=== PATIENT | male | born 1965 | race Two or more races ===

== ENCOUNTER 2017-04-19 07:47 | Emergency (ER) | payer MEDICARE, OTHER ==
[~2017-04-19] VITALS: Ht 157.5 cm; Wt 55.3 kg
[~2017-04-19 07:47] MED LIST: 1ST CHOICE LAN1 EACH MC; ABILIFY10 MG ORAL; ABILIFY10 MG PO; ABILIFY20 MG ORAL; ACETAMINOPHEN-1 EAC1 ORAL; ANTIBIOTIC28.4 GM TP; ATRIPLA1 TAB ORAL; ATRIPLA1 TAB PO; AUGMENTIN 875-1 EAC1 ORAL; BACTRIM DS TAB1 EAC1 ORAL; BACTRIM SINGLE S1 EA ORAL; BACTRIM-DS1 EA ORAL; BENTYL10 MG ORAL; BLOOD GLUCOSE1 EAC1 MC; CLARITIN10 MG ORAL; EASY COMFORT I1 EAC1 MC; EASY TOUCH MC; FLONASE16 GM NASAL; GLUCOSE TEST S1 EACH MC; GLUCOSE4 GM PO; GUAIFENESIN DM118 M1 ORAL; IBUPROFEN600 MG ORAL; KEFLEX500 MG ORAL; KLONOPIN0.5 MG ORAL; LANTUS SOL100 UNIT/1 SUBQ; LANTUS5 UNITS *; LEVEMIR FL100 UNIT/1 SUBQ; LEXAPRO10 MG ORAL; LEXAPRO5 MG PO; LIPITOR20 MG ORAL; NAPROSYN500 M1 ORAL; NEOSPORIN OINT30 GM EXT; NEURONTIN100 MG ORAL; NEURONTIN300 MG ORAL; NEURONTIN400 MG PO; NORCO1 EA ORAL; NOVOLOG100 UNIT/3 SUBQ; NOVOLOG100 UNIT/4 SQ; NOVOLOG100 UNITS1 SUBQ; NYSTATIN CREAM15 GM TOPIC; NYSTATIN-TRIAMC15 G1 TOP; RAMIPRIL2.5 MG ORAL; RESTORIL15 MG ORAL; RISPERDAL2 MG ORAL; SALINE NASAL SP45 ML NASAL; TRUVADA 200 MG1 EAC1 ORAL; VIBRAMYCIN100 MG ORAL; [UNRECOGNIZED DRUG - OTHER]; [UNRECOGNIZED DRUG - OTHER] MC; [UNRECOGNIZED DRUG - REMARK]; [UNRECOGNIZED DRUG - SUPPLY]; glucometer strips
[2017-04-19 08:39] VITALS: BP 112/69
--- NOTE | 2017-04-19 08:40 | Emergency Room Report ---
History of Present Illness General Chief Complaint: General Complaint Source: Patient, Medical Record Present Illness HPI 52-year-old male with history of diabetes, noncompliant with medications, HIV- positive, unknown last CD4 count, right lower extremity amputation, chronic right wrist wound for more than one month, presenting with hyperglycemia Patient states that he has only been intermittently taking his Lantus. States that he feels like his sugar is high Mild polydipsia, plus polyuria No fever chills chest pain shortness of breath nausea vomiting Patient currently homeless, has been to the emergency room multiple times Prior to triage to emergency room, patient was noted to be eating in hospital cafeteria Allergies: Coded Allergies: No Known Allergies (Unverified , 11/23/16) Patient History Past Medical History: see triage record Past Surgical History: none Pertinent Family History: none Reviewed Nursing Documentation: PMH: Agreed, PSxH: Agreed Nursing Documentation-PMH Hx Hypertension: Yes Hx COPD: Yes Hx Diabetes: Yes Review of Systems All Other Systems: negative except mentioned in HPI Physical Exam Vital Signs Date Time Temp Pulse Resp B/P (MAP) Pulse Ox O2 Delivery O2 Flow Rate FiO2 04/19/17 07:50 Room Air Sp02 EP Interpretation: reviewed, normal General Appearance: no apparent distress, alert, GCS 15, non-toxic, other - Disheveled middle aged male Head: normocephalic, atraumatic Eyes: bilateral eye normal inspection, bilateral eye PERRL, bilateral eye EOMI ENT: normal ENT inspection, normal pharynx, normal voice, moist mucus membranes Neck: normal inspection, full range of motion, supple Respiratory: normal inspection, lungs clear, normal breath sounds, no respiratory distress, no retraction, no wheezing, speaking full sentences, chest symmetrical Cardiovascular #1: normal inspection, regular rate, rhythm, no edema, normal capillary refill Cardiovascular #2: 2+ radial (R), 2+ radial (L) Gastrointestinal: normal inspection, non tender, soft, non-distended, no guarding Genitourinary: no CVA tenderness Musculoskeletal: back normal, non-tender, other - RLE BKA, R wrist with chronic wound volar aspet, nontender, no erythema no purulent drainage Neurologic: normal inspection, alert, oriented x3, responsive, motor strength/ tone normal, sensory intact, normal gait, speech normal Psychiatric: normal inspection, judgement/insight normal, memory normal Skin: normal inspection, normal color, no rash, warm/dry, well hydrated, normal turgor Medical Decision Making ER Course 52-year-old male, noncompliant with diabetes medications, presenting with hyperglycemia DDX: Hyperglycemia, electrolyte disturbance, dehydration, rule out DKA Noninfectious cause: UTI/pneumonia Chronic right wound, does not appear to have acute infection Plan: Obtain labs, ua, EKG, CXR ER course: Patient has been monitored during ED stay, HD stable got insulin 10 units fluids repeat glucose < 200 Disposition: DCed home instructed to take his DM meds Please note that this Emergency Department Report was dictated using [employer] or damage control specialist technology software, occasionally this can lead to erroneous entry secondary to interpretation by the dictation equipment. Laboratory Tests Test 04/19/17 08:45 White Blood Count 9.1 K/UL (4.8-10.8) Red Blood Count 3.75 M/UL (4.70-6.10) L Hemoglobin 12.3 G/DL (14.2-18.0) L Hematocrit 36.2 % (42.0-52.0) L Mean Corpuscular Volume 96 FL (80-99) Mean Corpuscular Hemoglobin 32.7 PG (27.0-31.0) H Mean Corpuscular Hemoglobin Concent 34.0 G/DL (32.0-36.0) Red Cell Distribution Width 12.3 % (11.6-14.8) Platelet Count 299 K/UL (150-450) Mean Platelet Volume 6.3 FL (6.5-10.1) L Neutrophils (%) (Auto) 76.8 % (45.0-75.0) H Lymphocytes (%) (Auto) 16.5 % (20.0-45.0) L Monocytes (%) (Auto) 3.6 % (1.0-10.0) Eosinophils (%) (Auto) 2.5 % (0.0-3.0) Basophils (%) (Auto) 0.7 % (0.0-2.0) Sodium Level 125 MMOL/L (136-145) L Potassium Level 3.7 MMOL/L (3.5-5.1) Chloride Level 90 MMOL/L (98-107) L Carbon Dioxide Level 28 MMOL/L (21-32) Anion Gap 7 (5-15) Blood Urea Nitrogen 14 mg/dL (7-18) Creatinine 0.9 MG/DL (0.55-1.30) Estimate Glomerular Filtration Rate > 60 mL/min (>60) Glucose Level 567 MG/DL (74-106) *H Calcium Level 9.5 MG/DL (8.5-10.1) Magnesium Level 1.8 MG/DL (1.8-2.4) Total Bilirubin 0.2 MG/DL (0.2-1.0) Aspartate Amino Transferase (AST) 40 U/L (15-37) H Alanine Aminotransferase (ALT) 66 U/L (12-78) Alkaline Phosphatase 169 U/L (46-116) H Total Protein 8.2 G/DL (6.4-8.2) Albumin 3.1 G/DL (3.4-5.0) L Globulin 5.1 g/dL Albumin/Globulin Ratio 0.6 (1.0-2.7) L Acetone Level Negative (NEGATIVE) EKG Diagnostic Results Rate: normal Rhythm: NSR ST Segments: other - LVH, Q waves Avl Rhythm Strip Diag. Results EP Interpretation: yes Rate: 77 Rhythm: NSR, no PVC's, no ectopy Last Vital Signs Date Time Temp Pulse Resp B/P (MAP) Pulse Ox O2 Delivery O2 Flow Rate FiO2 04/19/17 07:50 Room Air Disposition: HOME, SELF-CARE Condition: Improved Referrals: NON PHYSICIAN (PCP) Tosha Erazo M.D. Apr 19, 2017 08:40
[2017-04-19 08:59] LABS: BASOPHILS % (AUTO) 0.7 % (0.0-2.0); EOSINOPHILS % (AUTO) 2.5 % (0.0-3.0); LYMPHOCYTES % (AUTO) 16.5 % (20.0-45.0); MEAN CORPUSCULAR HEMOGLOBIN 32.7 PG (27.0-31.0); MEAN CORPUSCULAR VOLUME 96 FL (80-99); MEAN PLATELET VOLUME 6.3 FL (6.5-10.1); MONOCYTES % (AUTO) 3.6 % (1.0-10.0); NEUTROPHILS % (AUTO) 76.8 % (45.0-75.0); PLATELET COUNT 299 K/UL (150-450); RED BLOOD COUNT 3.75 M/UL (4.70-6.10); RED CELL DISTRIBUTION WIDTH 12.3 % (11.6-14.8); WHITE BLOOD COUNT 9.1 K/UL (4.8-10.8)
[2017-04-19 09:12] LABS: ALANINE AMINOTRANSFERASE 66 U/L (12-78); ALBUMIN/GLOBULIN RATIO 0.6 (1.0-2.7); ANION GAP 7 (5-15); ASPARTATE AMINO TRANSFERASE 40 U/L (15-37); CALCIUM 9.5 MG/DL (8.5-10.1); CARBON DIOXIDE 28 MMOL/L (21-32); CHLORIDE 90 MMOL/L (98-107); CREATININE 0.9 MG/DL (0.55-1.30); GLOMERULAR FILTRATION RATE > 60 mL/min (>60); MAGNESIUM 1.8 MG/DL (1.8-2.4); POTASSIUM 3.7 MMOL/L (3.5-5.1); SODIUM 125 MMOL/L (136-145); TOTAL PROTEIN 8.2 G/DL (6.4-8.2)
[2017-04-19] MEDS ORDERED: IBUPROFEN600 MG ORAL (09:26)
[2017-04-19] MEDS ORDERED: TRAMADOL HCL50 MG ORAL (09:27)
[2017-04-19] MEDS ORDERED: LANTUS SOL100 UNIT/1 SUBQ (09:29)
[2017-04-19] MEDS ORDERED: HUMALOG100 UNIT/4 SUBQ (09:29)
[2017-04-19 10:59] VITALS: BP 147/76
[2017-04-19 11:05] VITALS: BP 147/76
--- NOTE | 2017-04-19 12:03 | Diagnostic Imaging Report ---
Indication: PAIN Technique: One view of the chest Comparison: 03/22/2017 Findings: Lungs and pleural spaces remain clear. The heart size is normal. Bilateral basilar nipple shadows are again demonstrated Impression: No acute process
--- NOTE | 2017-05-02 14:01 | Cardiology Report ---
APPROVED REPORT EKG Measurement Heart [id number] Normal sinus rhythm Left anterior fascicular block Minimal voltage criteria for LVH, may be normal variant Septal infarct, age undetermined Abnormal ECG
== END 2017-04-19 11:25 | disposition home or self-care (01) ==
LOC: EDBD → MERGE 08:26 → UNMERGE 08:26 → EMR 08:26
DX: E11.65 Type 2 diabetes mellitus with hyperglycemia (principal); Z91.14 Patient's other noncompliance with medication regimen; Z59.0 Homelessness; I10 Essential (primary) hypertension; J44.9 Chronic obstructive pulmonary disease, unspecified; Z89.9 Acquired absence of limb, unspecified
CPT/HCPCS: 36415; 71010; 80053; 82009; 82962; 83735; 85025; 93005; 96361; 96374; 99284; J1815; 96360

== ENCOUNTER 2017-05-05 00:10 | Emergency (ER) | payer MEDICARE, OTHER ==
[~2017-05-05] VITALS: Ht 157.5 cm; Wt 41.7 kg
[~2017-05-05 00:10] MED LIST changes: +HUMALOG100 UNIT/4 SUBQ; +TRAMADOL HCL50 MG ORAL
[2017-05-05 00:59] LABS: EOSINOPHILS % (AUTO) 2.3 % (0.0-3.0); LYMPHOCYTES % (AUTO) 17.2 % (20.0-45.0); MEAN CORPUSCULAR HEMOGLOBIN 32.8 PG (27.0-31.0); MEAN CORPUSCULAR HGB CONC 34.1 G/DL (32.0-36.0); MEAN CORPUSCULAR VOLUME 96 FL (80-99); MEAN PLATELET VOLUME 6.8 FL (6.5-10.1); MONOCYTES % (AUTO) 8.5 % (1.0-10.0); PLATELET COUNT 315 K/UL (150-450); RED BLOOD COUNT 3.24 M/UL (4.70-6.10); RED CELL DISTRIBUTION WIDTH 13.4 % (11.6-14.8)
[2017-05-05 01:25] LABS: ANION GAP 7 mmol/L (5-15); CALCIUM 8.9 MG/DL (8.5-10.1); CARBON DIOXIDE 29 MMOL/L (21-32); CHLORIDE 95 MMOL/L (98-107); CREATININE 1.2 MG/DL (0.55-1.30); GLOMERULAR FILTRATION RATE > 60 mL/min (>60); POTASSIUM 4.9 MMOL/L (3.5-5.1); SODIUM 131 MMOL/L (136-145)
[2017-05-05 01:41] VITALS: BP 113/59
[2017-05-05 03:40] VITALS: BP 113/59
--- NOTE | 2017-05-05 03:41 | Emergency Room Report ---
History of Present Illness General Chief Complaint: General Complaint Source: Patient, Medical Record Present Illness HPI This is a 52-year-old male with a history of insulin-dependent diabetes. He's been here multiple times in the past. He presents with chief complaint of high blood sugar. No wheeze doing well if he is in a [facility] or boarding care where he gets his medication. He signed out yesterday and hasn't had any insulin for almost 24 hours. He presents with elevated blood sugar. No fever or chills. No nausea no vomiting. He does have a wound infection to the this his left foot. No fever chills but no nausea no vomiting. Denies any other complaint. Allergies: Coded Allergies: No Known Allergies (Unverified , 11/23/16) Patient History Past Medical History: see triage record, old chart reviewed, DM Past Surgical History: other Pertinent Family History: none Social History: Denies: smoking Immunizations: other Reviewed Nursing Documentation: PMH: Agreed, PSxH: Agreed Nursing Documentation-PMH Hx Hypertension: Yes Hx COPD: Yes Hx Diabetes: Yes Review of Systems Eye: Denies: eye pain, blurred vision ENT: Denies: ear pain, nose congestion, throat swelling Respiratory: Denies: cough, shortness of breath Cardiovascular: Denies: chest pain, palpitations Gastrointestinal: Denies: abdominal pain, diarrhea, nausea, vomiting Musculoskeletal: Denies: back pain, joint pain Skin: Denies: rash Neurological: Denies: headache, numbness Endocrine: Denies: increased thirst, increased urine Hematologic/Lymphatic: Denies: easy bruising All Other Systems: negative except mentioned in HPI Physical Exam Vital Signs Date Time Temp Pulse Resp B/P (MAP) Pulse Ox O2 Delivery O2 Flow Rate FiO2 05/05/17 00:19 99.0 106 20 90/54 98 Room Air vitals with hypotension Sp02 EP Interpretation: reviewed, normal General Appearance: no apparent distress, alert, cachetic, Chronically Ill Head: normocephalic, atraumatic Eyes: bilateral eye PERRL, bilateral eye EOMI ENT: hearing grossly normal, normal pharynx Neck: full range of motion, supple, no meningismus Respiratory: chest non-tender, lungs clear, normal breath sounds Cardiovascular #1: regular rate, rhythm, no murmur Gastrointestinal: normal bowel sounds, non tender, no mass, no organomegaly, no bruit, non-distended Musculoskeletal: back normal, normal range of motion, other - Right BKA. Left foot: He has a crack in the callous of the sole of the foot. no redness or drainage. Psychiatric: mood/affect normal Skin: warm/dry Medical Decision Making Diagnostic Impression: Primary Impression: Hyperglycemia due to type 1 diabetes mellitus Additional Impression: Noncompliance with diabetes treatment ER Course Patient presents with uncontrolled diabetes. He is noncompliance with medication. He does not want help. He slept for several hours here and now said he wanted to leave. He doesn't want any more intervention. He is high risk for further deterioration. I know this patient for few years now. He's slowly getting worse especially since he is not compliant with his medication. He has lost a lot of weight and already had one BKA. I worried that his left foot would become infected. He refuse insulin prescription. He is competent to leave AGAINST MEDICAL ADVICE. There is no intoxication or drug abuse. Lab Results Impression labs with elevated glucose Last Vital Signs Date Time Temp Pulse Resp B/P (MAP) Pulse Ox O2 Delivery O2 Flow Rate FiO2 05/05/17 01:41 99.0 91 20 113/59 98 Room Air Status: improved Disposition: AGAINST MEDICAL ADVICE Condition: Stable Referrals: NOT CHOSEN STEPHIE/,REFERRING (PCP) CASI MARK M.D. May 05, 2017 03:40
== END 2017-05-05 03:40 | disposition left against medical advice (07) ==
LOC: EDBD → EMR 00:49 → MERGE 00:49 → UNMERGE 00:49 → EMR 03:40
DX: E10.65 Type 1 diabetes mellitus with hyperglycemia (principal); Z79.4 Long term (current) use of insulin; Z91.14 Patient's other noncompliance with medication regimen; Z89.511 Acquired absence of right leg below knee; L84 Corns and callosities; I10 Essential (primary) hypertension; J44.9 Chronic obstructive pulmonary disease, unspecified; Z53.21 Procedure and treatment not carried out due to patient leaving prior to being seen by health care provider
CPT/HCPCS: 36415; 80048; 85025; 96361; 96374; 96376; 99284; J1815

== ENCOUNTER 2017-05-24 15:22 | Inpatient (IN) | payer MEDICARE, OTHER ==
[~2017-05-24] VITALS: Ht 160 cm; Wt 49.9 kg
[2017-05-24 15:39] VITALS: BP 91/53
--- NOTE | 2017-05-24 16:32 | Emergency Room Report ---
History of Present Illness General Chief Complaint: Upper Extremity Injury Present Illness HPI 52 YO Male presents to the ED C/O 11/17 in severity progressive pain in the left elbow x 1 week. pt. reports fall from wheelchair 1 week ago with progressive worsening of his symptoms. pt. has hx of DM 2 and takes insulin. Pt. has hx of non-compliance. Pt. states pain with ROM. denies hitting his head or LOC, N/V, abdominal pain, fevers, chills, bleeding. (Mary Carpenter P.A.) Allergies: Uncoded Allergies: POLLEN (Allergy, Unknown, 07/23/16) Patient History Past Medical History: see triage record, DM Past Surgical History: none Pertinent Family History: none Immunizations: UTD Reviewed Nursing Documentation: PMH: Agreed, PSxH: Agreed (Mary Carpenter P.AJamey) Nursing Documentation-PMH Hx Hypertension: Yes Hx COPD: Yes Hx Diabetes: Yes (Mary Carpenter P.A.) Review of Systems All Other Systems: negative except mentioned in HPI (Mary Carpenter P.A.) Physical Exam Vital Signs Date Time Temp Pulse Resp B/P (MAP) Pulse Ox O2 Delivery O2 Flow Rate FiO2 05/24/17 15:28 98.4 90 20 91/53 99 Room Air Sp02 EP Interpretation: reviewed, normal General Appearance: no apparent distress, alert, GCS 15, non-toxic, thin, Chronically Ill Head: normocephalic, atraumatic Eyes: bilateral eye normal inspection ENT: hearing grossly normal, normal voice Neck: full range of motion, supple/symm/no masses Respiratory: chest non-tender, lungs clear, normal breath sounds, speaking full sentences Cardiovascular #1: regular rate, rhythm, normal capillary refill Gastrointestinal: normal bowel sounds, non tender, soft, no guarding, no rebound Rectal: deferred Musculoskeletal: back normal, normal range of motion, other - right BKA, tender - some ttp and swelling to the lateral left elbow. FROM. pt is NVI Neurologic: alert, oriented x3, responsive, motor strength/tone normal, sensory intact, speech normal Skin: no rash, warm/dry, well hydrated, abrasions - scabbed abrasion to the left posterior/medial elbow with surrounding erythema (Mary Carpenter P.AJamey) Medical Decision Making PA Attestation Dr. Erazo is my supervising Physician whom patient management has been discussed with. (Mary Carpenter) Diagnostic Impression: Primary Impression: Cellulitis of left elbow Additional Impressions: Hyperglycemia DM2, uncontrolled ER Course 52 YO Male presents to the ED C/O 11/17 in severity progressive pain in the left elbow x 1 week. pt. reports fall from wheelchair 1 week ago with progressive worsening of his symptoms. pt. has hx of DM 2 and takes insulin. Pt. has hx of non-compliance. Pt. states pain with ROM. denies hitting his head or LOC, N/V, abdominal pain, fevers, chills, bleeding. Ddx considered but are not limited to Fracture, dislocation, contusion, Sprain/ Strain/Spasm, cellulitis, Septic Joint just to name a few. Vital signs: are WNL, pt. is afebrile H&PE are most consistent with musculoskeletal injury will perform imaging to r/ o fractures/dislocations possible infection. ORDERS: - X-ray Elbow -suspicious for osteomyelitis. -CBC: mild leukocytosis at 11.1 -CMP: critically elevated Glucose of 683, hyponatremia and hypochloremia, normal potassium however on the lower end. CO2 of 27 - not acidotic -EK bpm with NSR, q waves in leads 1, AVL, and V2, with some right concave T wave elevation that is less than 1mm in leads V1 and V2. --Per Dr. Erazo, interpretation scribed by RADHA Carpenter - ESR- elevated : 6103, CRP elevated: 9.5 - Troponin : WNL 0.00 -Lactic Acid : WNL -Acetone: negative ED INTERVENTIONS: -Tdap vaccination administered. - 1 gram Vancomycin IV - KCL PO - 2 liters NS Bolus. (after fluids AccuStick was still critically high, so insulin was given) -Insulin 10 units IV. DISPOSITION: at this time pt. will be admitted to Dr. Gutierrez / Dr. Almonte for Cellulitis, hyperglycemia. Dr. Dr. Gutierrez / Dr. Almonte agreed to admit the pt. and to continue pt. care management. Labs Test 05/24/17 17:21 05/24/17 18:40 White Blood Count 11.1 K/UL (4.8-10.8) Red Blood Count 3.43 M/UL (4.70-6.10) Hemoglobin 10.4 G/DL (14.2-18.0) Hematocrit 32.5 % (42.0-52.0) Mean Corpuscular Volume 95 FL (80-99) Mean Corpuscular Hemoglobin 30.4 PG (27.0-31.0) Mean Corpuscular Hemoglobin Concent 32.1 G/DL (32.0-36.0) Red Cell Distribution Width 12.3 % (11.6-14.8) Platelet Count 339 K/UL (150-450) Mean Platelet Volume 6.4 FL (6.5-10.1) Neutrophils (%) (Auto) 78.4 % (45.0-75.0) Lymphocytes (%) (Auto) 13.2 % (20.0-45.0) Monocytes (%) (Auto) 7.1 % (1.0-10.0) Eosinophils (%) (Auto) 0.7 % (0.0-3.0) Basophils (%) (Auto) 0.7 % (0.0-2.0) Erythrocyte Sedimentation Rate 103 MM/HR (0-20) Sodium Level 126 MMOL/L (136-145) Potassium Level 3.8 MMOL/L (3.5-5.1) Chloride Level 91 MMOL/L (98-107) Carbon Dioxide Level 27 MMOL/L (21-32) Anion Gap 8 mmol/L (5-15) Blood Urea Nitrogen 17 mg/dL (7-18) Creatinine 1.2 MG/DL (0.55-1.30) Estimat Glomerular Filtration Rate > 60 mL/min (>60) Glucose Level 683 MG/DL (74-106) Lactic Acid Level 2.00 mmol/L (0.66-2.22) Calcium Level 9.2 MG/DL (8.5-10.1) Magnesium Level 2.0 MG/DL (1.5-2.4) Total Bilirubin 0.3 MG/DL (0.2-1.0) Aspartate Amino Transf (AST/SGOT) 18 U/L (15-37) Alanine Aminotransferase (ALT/SGPT) 21 U/L (12-78) Alkaline Phosphatase 138 U/L (46-116) Total Creatine Kinase 185 U/L (26-308) Creatine Kinase MB 8.8 NG/ML (0.0-3.6) Creatine Kinase MB Relative Index 4.7 Troponin I 0.000 ng/mL (0.000-0.056) C-Reactive Protein, Quantitative 9.5 mg/dL (0.00-0.90) Total Protein 8.3 G/DL (6.4-8.2) Albumin 2.8 G/DL (3.4-5.0) Globulin 5.5 g/dL Albumin/Globulin Ratio 0.5 (1.0-2.7) Acetone Level Negative (NEGATIVE) Urine Color Pale yellow Urine Appearance Clear Urine pH 7 (4.5-8.0) Urine Specific [place] 1.005 (1.005-1.035) Urine Protein 2+ (NEGATIVE) Urine Glucose (UA) 4+ (NEGATIVE) Urine Ketones Negative (NEGATIVE) Urine Occult Blood 1+ (NEGATIVE) Urine Nitrite Negative (NEGATIVE) Urine Bilirubin Negative (NEGATIVE) Urine Urobilinogen Normal MG/DL (0.0-1.0) Urine Leukocyte Esterase Negative (NEGATIVE) Urine RBC 0-2 /HPF (0 - 0) Urine WBC 0-2 /HPF (0 - 0) Urine Squamous Epithelial Cells None /LPF (NONE/OCC) Urine Bacteria Few /HPF (NONE) (Mary Carpenter P.A.) ER Course I have reviewed the PA's interpretation of Xray results and agree with findings. (Tosha Erazo M.D.) EKG Diagnostic Results EKG Time: 17:26 EP Interpretation: Dr. Erazo Rate: normal Rhythm: NSR ST Segments: no acute changes Other Impression Q- waves in leads 1, AVL, and V2, with some right concave T wave elevation that is less than 1mm in leads V1 and V2. ASA given to the pt in ED: No PA Scribe Text Dr. Erazo's interpretation has been scribed by RADHA Carpenter. (Mary Carpenter P.AJamey) Chest X-Ray Diagnostic Results Chest X-Ray Diagnostic Results : Chest X-Ray Ordered: Yes # of Views/Limited/Complete: 1 View Indication: Other - admission for cellulitis/ osteomyelitis EP Interpretation: Yes PA Xray: Interpretation reviewed, by supervising MD, and agrees with findings. Interpretation: no consolidation, no effusion, no pneumothorax, no acute cardiopulmonary disease Impression: No acute disease Electronically Signed by: Mary Carpenter PA-C (Mary Carpenter P.AJamey) Other X-Ray Diagnostic Results Other X-Ray Diagnostic Results : X-Ray ordered: Left Elbow # of Views/Limited Vs Complete: 3 View Indication: Pain EP Interpretation: Yes PA Xray: Interpretation reviewed, by supervising MD, and agrees with findings. Interpretation: no dislocation, no fractures Impression: Other - evidence of bony erosions of the proximal olecranon with effusion - suspicious for osteomyelitis Electronically Signed by: Mary Carpenter PA-C (Mary Carpenter P.AJamey) Last Vital Signs Date Time Temp Pulse Resp B/P (MAP) Pulse Ox O2 Delivery O2 Flow Rate FiO2 05/24/17 15:39 98.4 72 20 91/53 99 Room Air (Mary Carpenter P.AJamey) Disposition: ADMITTED INPATIENT Condition: Serious Referrals: NOT CHOSEN IPA/,REFERRING (PCP) Mary Carpenter May 24, 2017 16:32 Tosha Erazo M.D. May 29, 2017 07:23
[2017-05-24] MEDS ORDERED: Vancomycin 1 GM in NS 275 ML IV ONE (17:00)
[2017-05-24] MEDS ORDERED: Vancomycin 1gm inj IVPB ONE (17:07)
[2017-05-24 17:53] LABS: BASOPHILS % (AUTO) 0.7 % (0.0-2.0); EOSINOPHILS % (AUTO) 0.7 % (0.0-3.0); LYMPHOCYTES % (AUTO) 13.2 % (20.0-45.0); MEAN CORPUSCULAR HEMOGLOBIN 30.4 PG (27.0-31.0); MEAN CORPUSCULAR HGB CONC 32.1 G/DL (32.0-36.0); MEAN CORPUSCULAR VOLUME 95 FL (80-99); MEAN PLATELET VOLUME 6.4 FL (6.5-10.1); MONOCYTES % (AUTO) 7.1 % (1.0-10.0); NEUTROPHILS % (AUTO) 78.4 % (45.0-75.0); PLATELET COUNT 339 K/UL (150-450); RED BLOOD COUNT 3.43 M/UL (4.70-6.10); RED CELL DISTRIBUTION WIDTH 12.3 % (11.6-14.8); WHITE BLOOD COUNT 11.1 K/UL (4.8-10.8)
[2017-05-24 18:08] LABS: ALANINE AMINOTRANSFERASE 21 U/L (12-78); ALBUMIN/GLOBULIN RATIO 0.5 (1.0-2.7); ANION GAP 8 mmol/L (5-15); ASPARTATE AMINO TRANSFERASE 18 U/L (15-37); CALCIUM 9.2 MG/DL (8.5-10.1); CARBON DIOXIDE 27 MMOL/L (21-32); CHLORIDE 91 MMOL/L (98-107); CKMB 8.8 NG/ML (0.0-3.6); CREATININE 1.2 MG/DL (0.55-1.30); GLOMERULAR FILTRATION RATE > 60 mL/min (>60); POTASSIUM 3.8 MMOL/L (3.5-5.1); SODIUM 126 MMOL/L (136-145); TOTAL PROTEIN 8.3 G/DL (6.4-8.2)
[2017-05-24 18:16] LABS: REFLEX LACTIC ACID YES OR NO YES
[2017-05-24] MEDS ORDERED: Mylanta II UD 30ml ORAL PRN (18:30)
--- NOTE | 2017-05-24 18:37 | History and Physical ---
History of Present Illness General Date patient seen: May 24, 2017 Time patient seen: 18:37 Reason for Hospitalization: Upper Extremity Injury Present Illness HPI 52yo male with pmh of DM2, s/p R BKA, bipolar d/o, depression, HIV (on HAART) who presents with L elbow pain/swelling/redness. Pt is poor historian. He states he fell from wheelchair abt 1-2 weeks ago and landed on his L elbow. He has had worsening pain/swelling/redness since. Denies head trauma or LOC. Pt states he is homeless. He has been noncompliant w/ some meds as he has not been able to get refills. States he has an HIV doctor that he sees. He also c/o subjective fevers/chills. Denies n/v, d/c, chest pain, SOB. Pt gets around in wheelchair. Of note, pt was here in Feb 2017 for similar complaints after a fall. He was treated w/ IV antibiotics and underwent drainage of possible abscess. There was concern for septic joint at the time but he decided to leave AMA. In ED, x-ray L elbow showed evidence of destructive process involving the anterior olecranon, possible infectious or neoplastic, as well as joint effusion. Pt given IVFs, vanco IV. Also given insulin regular 10U IV given BG 600s. Serum acetone neg. No AG acidosis on BMP. Allergies: Coded Allergies: No Known Allergies (Unverified , 11/23/16) Medication History Scheduled Amoxicillin/Potassium Clav 875-125* (Augmentin 875-125 Tablet*), 1 TAB ORAL TWICE A DAY Aripiprazole* (Abilify*), 10 MG ORAL DAILY, (Reported) Bacitracin Zinc (Antibiotic), 28.4 GM TP TID Emtricitabine/Tenofovir 200-300MG* (Truvada 200-300MG*), 1 TAB ORAL DAILY, ( Reported) Escitalopram Oxalate* (Lexapro*), Unknown Dose ORAL DAILY, (Reported) Gabapentin* (Neurontin*), 100 MG ORAL THREE TIMES A DAY, (Reported) Insulin Glargine (Lantus), Unknown Dose SUBQ BEDTIME, (Reported) Insulin Glargine (Lantus), 22 SUBQ BEDTIME, (Reported) Insulin Lispro (Humalog), 12 SUBQ TID, (Reported) Scheduled PRN Ibuprofen* (Motrin*), 600 MG ORAL Q6H PRN for For Pain, (Reported) Ibuprofen* (Motrin*), 600 MG ORAL Q8H PRN for For Pain, (Reported) Tramadol Hcl* (Ultram*), 50 MG ORAL Q12HR PRN for For Pain, (Reported) Miscellaneous Medications Insulin Aspart (Novolog), Unknown Dose SQ, (Reported) ["Antiviral"], Unknown Dose, (Reported) Patient History History Provided By: Patient, Medical Record Healthcare decision maker Resuscitation status Advanced Directive on File Past Medical/Surgical History Past Medical/Surgical History: (1) DM2, uncontrolled (2) Bipolar disorder with depression (3) HIV (human immunodeficiency virus infection) (4) Tobacco abuse (5) Status post below knee amputation of right lower extremity Family History Family History: Patient reports no known family medical history. Social History Social History: (1) Homelessness (2) Tobacco abuse Review of Systems ROS Narrative CONSTITUTIONAL: No weight loss, weakness or fatigue. +Fever/chills HEENT: Eyes: No visual loss, blurred vision, double vision or yellow sclerae. Ears, Nose, Throat: No hearing loss, sneezing, congestion, runny nose or sore throat. SKIN: No rash or itching. CARDIOVASCULAR: No chest pain, chest pressure or chest discomfort. No palpitations or edema. RESPIRATORY: No shortness of breath, cough or sputum. GASTROINTESTINAL: No anorexia, nausea, vomiting or diarrhea. No abdominal pain or blood. NEUROLOGICAL: No headache, dizziness, syncope, paralysis, ataxia, numbness or tingling in the extremities. No change in bowel or bladder control. MUSCULOSKELETAL: No muscle, back pain, + L elbow pain. HEMATOLOGIC: No anemia, bleeding or bruising. LYMPHATICS: No enlarged nodes. No history of splenectomy. PSYCHIATRIC: No history of depression or anxiety. ENDOCRINOLOGIC: No reports of sweating, cold or heat intolerance. No polyuria or polydipsia. ALLERGIES: No history of asthma, hives, eczema or rhinitis. Physical Exam Physical Exam Narrative General: alert, cooperative, no distress, appears stated age Head: normocephalic, without obvious abnormality, atraumatic Eyes: conjunctivae/corneas clear. PERRL, EOM's intact Throat: lips, mucosa, and tongue normal. MMM Neck: supple, symmetrical, trachea midline, and no JVD Lungs: clear to auscultation bilaterally Heart: regular rate and rhythm, S1, S2 normal, no murmur, click, rub or gallop Abdomen: soft, non-tender, non-distended, bowel sounds normal; no masses or organomegaly Extremities: +R BKA stump c/d/i. L elbow TTP w/ edema/erythema Pulses: 2+ and symmetric Skin: skin color, texture, turgor normal; no rashes or lesions Neurologic: grossly normal, no focal deficits Last 24 Hour Vital Signs Date Time Temp Pulse Resp B/P (MAP) Pulse Ox O2 Delivery O2 Flow Rate FiO2 05/24/17 15:39 98.4 72 20 91/53 99 Room Air 05/24/17 15:28 98.4 90 20 91/53 99 Room Air Laboratory Tests Test 05/24/17 17:21 White Blood Count 11.1 K/UL (4.8-10.8) H Red Blood Count 3.43 M/UL (4.70-6.10) L Hemoglobin 10.4 G/DL (14.2-18.0) L Hematocrit 32.5 % (42.0-52.0) L Mean Corpuscular Volume 95 FL (80-99) Mean Corpuscular Hemoglobin 30.4 PG (27.0-31.0) Mean Corpuscular Hemoglobin Concent 32.1 G/DL (32.0-36.0) Red Cell Distribution Width 12.3 % (11.6-14.8) Platelet Count 339 K/UL (150-450) Mean Platelet Volume 6.4 FL (6.5-10.1) L Neutrophils (%) (Auto) 78.4 % (45.0-75.0) H Lymphocytes (%) (Auto) 13.2 % (20.0-45.0) L Monocytes (%) (Auto) 7.1 % (1.0-10.0) Eosinophils (%) (Auto) 0.7 % (0.0-3.0) Basophils (%) (Auto) 0.7 % (0.0-2.0) Erythrocyte Sedimentation Rate Pending Sodium Level 126 MMOL/L (136-145) L Potassium Level 3.8 MMOL/L (3.5-5.1) Chloride Level 91 MMOL/L (98-107) L Carbon Dioxide Level 27 MMOL/L (21-32) Anion Gap 8 mmol/L (5-15) Blood Urea Nitrogen 17 mg/dL (7-18) Creatinine 1.2 MG/DL (0.55-1.30) Estimat Glomerular Filtration Rate > 60 mL/min (>60) Glucose Level 683 MG/DL (74-106) *H Lactic Acid Level 2.00 mmol/L (0.66-2.22) Calcium Level 9.2 MG/DL (8.5-10.1) Magnesium Level 2.0 MG/DL (1.5-2.4) Total Bilirubin 0.3 MG/DL (0.2-1.0) Aspartate Amino Transf (AST/SGOT) 18 U/L (15-37) Alanine Aminotransferase (ALT/SGPT) 21 U/L (12-78) Alkaline Phosphatase 138 U/L (46-116) H Total Creatine Kinase 185 U/L (26-308) Creatine Kinase MB 8.8 NG/ML (0.0-3.6) H Creatine Kinase MB Relative Index 4.7 Troponin I 0.000 ng/mL (0.000-0.056) C-Reactive Protein, Quantitative 9.5 mg/dL (0.00-0.90) H Total Protein 8.3 G/DL (6.4-8.2) H Albumin 2.8 G/DL (3.4-5.0) L Globulin 5.5 g/dL Albumin/Globulin Ratio 0.5 (1.0-2.7) L Acetone Level Negative (NEGATIVE) Height (Feet): 5 Height (Inches): 3.00 Weight (Pounds): 110 Medications Current Medications Medications (Trade) Dose Ordered Sig/Antoni Route PRN Reason Start Time Stop Time Status Last Admin Dose Admin Acetaminophen (Tylenol) 650 mg Q4H PRN ORAL Mild Pain (Pain Scale 1-3) 05/24/17 18:30 06/23/17 18:29 UNV Acetaminophen/ Hydrocodone Bitart ([place] 10/325) 1 ea Q4HR PRN ORAL severe pain 05/24/17 18:45 05/31/17 18:44 UNV Acetaminophen/ Hydrocodone Bitart ([place] 5/325) 1 tab Q4H PRN ORAL mod pain 05/24/17 18:45 05/31/17 18:44 UNV Al Hydroxide/Mg Hydroxide (Mylanta II) 30 ml Q6H PRN ORAL dyspepsia 05/24/17 18:30 06/23/17 18:29 UNV Dextrose (Dextrose 50%) STAT PRN IV Hypoglycemia 05/24/17 18:30 06/23/17 18:29 UNV Diphenhydramine HCl (Benadryl) 25 mg Q6H PRN ORAL Itching/Pruritis 05/24/17 18:30 06/23/17 18:29 UNV Docusate Sodium (Colace) 100 mg EVERY 12 HOURS ORAL 05/24/17 21:00 06/23/17 20:59 UNV Heparin Sodium (Porcine) (Heparin 5000 units/ml) 5,000 units EVERY 12 HOURS SUBQ 05/24/17 21:00 06/23/17 20:59 UNV Ondansetron HCl (Zofran) 4 mg Q6H PRN IVP Nausea & Vomiting 05/24/17 18:30 06/23/17 18:29 UNV Sodium Chloride 1,000 ml @ 75 mls/hr [id number] IVLG 05/24/17 19:30 06/23/17 19:29 UNV Sodium Chloride 1,000 ml @ 999 mls/hr Q1H1M ONCE IV 05/24/17 18:15 05/24/17 19:15 05/24/17 18:27 Vancomycin HCl (Vanco rx to dose) 1 ea DAILY PRN MISC Per rx protocol 05/24/17 18:30 06/23/17 18:29 UNV Assessment/Plan Problem List: (1) L elbow wound Assessment & Plan: Concern for septic joint/bursitis vs osteomyelitis (2) Cellulitis of left elbow ICD Codes: L03.114 - Cellulitis of left upper limb SNOMED: 146345738 (3) Uncontrolled diabetes mellitus ICD Codes: E11.65 - Type 2 diabetes mellitus with hyperglycemia SNOMED: 061943297, 19834669 (4) HIV (human immunodeficiency virus infection) ICD Codes: B20 - Human immunodeficiency virus [HIV] disease SNOMED: 72336267 (5) Bipolar disorder with depression ICD Codes: F31.30 - Bipolar disorder, current episode depressed, mild or moderate severity, unspecified SNOMED: 82163820 (6) Tobacco abuse ICD Codes: Z72.0 - Tobacco use SNOMED: 44829819, 859063856 (7) Hx of right BKA ICD Codes: Z89.511 - Acquired absence of right leg below knee SNOMED: 320237248, 010611704, 421565207 (8) Homelessness ICD Codes: Z59.0 - Homelessness SNOMED: 35702163 Status: stable Assessment/Plan Admit inpt Ortho surgery and ID consulted Empiric vanco for now, consider adding further coverage pending ID input F/u cultures Check MRI L elbow to evaluate for osteomyelitis Consider arthrocentesis of L elbow pending MRI Cont home meds KIRTI SW consult for homelessness Podiatry consult for wound care Pain control, bowel regimen Supportive care DVT Prophylaxis: SCD, HSQ Code Status: Full Hospital Classification Declaration: Based on this initial evaluation, and depending on the patient's clinical course, I anticipate that this patient will require hospitalization for 2-3 days for L elbow infection, concern for osteomyelitis and close respiratory/hemodynamic monitoring. Disposition: Once the patient is stable to leave the hospital, I anticipate the patient will likely be discharged to the following environment: group home vs SNF I spent 72 minutes on this patient's case, and 49 minutes were dedicated to counseling and/or care coordination. Discussed with patient/family, nursing staff, SW/CM, ortho, ID regarding clinical status, treatment course, and disposition planning. Time of note may not reflect time of encounter. Gage Hermosillo M.D. May 24, 2017 18:37
[2017-05-24] MEDS ORDERED: Norco 10mg/325mg tab ORAL PRN (18:45)
[2017-05-24] MEDS ORDERED: Norco 5mg/325mg tab ORAL PRN (18:45)
[2017-05-24 19:00] VITALS: BP 118/62
[2017-05-24 19:02] LABS: APPEARANCE,URINE CLEAR; KETONES,URINE NEGATIVE (NEGATIVE); LEUKOCYTE ESTERASE ,URINE NEGATIVE (NEGATIVE); NITRITE,URINE NEGATIVE (NEGATIVE); PH,URINE 7 (4.5-8.0); PROTEIN,URINE 2+ (NEGATIVE); UROBILINOGEN,URINE NORMAL MG/DL (0.0-1.0)
[2017-05-24 19:22] LABS: BACTERIA,URINE FEW /HPF; RBC,URINE 0-2 /HPF (0 - 0); WBC,URINE 0-2 /HPF (0 - 0)
[2017-05-24] MEDS ORDERED: Tetanus/Diptheria/Pertussis Vaccine 0.5ml Syr IM ONE (20:45)
[2017-05-24 21:00] VITALS: BP 134/66
[2017-05-24 21:35] VITALS: BP 114/73
[2017-05-24] MEDS ORDERED: Levemir Flexpen SUBQ SCH (22:00)
[2017-05-24] MEDS: Heparin 5000 units/ml inj SUBQ SCH (22:49)
[2017-05-24] MEDS: NovoLOG Insulin Flexpen SUBQ SCH (22:50)
[2017-05-24] MEDS: Docusate 100mg cap ORAL SCH (22:51)
[2017-05-25] VITALS: BP 115/57
[2017-05-25 04:00] VITALS: BP 120/59
[2017-05-25] MEDS: Vancomycin 750mg/NS 250ml 250 ML IVPB SCH ×2 (05:19→18:33)
[2017-05-25] MEDS: NovoLOG Insulin Flexpen SUBQ SCH ×4 (06:30→23:36)
[2017-05-25 08:12] LABS: BASOPHILS % (AUTO) 0.3 % (0.0-2.0); EOSINOPHILS % (AUTO) 0.5 % (0.0-3.0); LYMPHOCYTES % (AUTO) 15.9 % (20.0-45.0); MEAN CORPUSCULAR HEMOGLOBIN 31.7 PG (27.0-31.0); MEAN CORPUSCULAR HGB CONC 33.6 G/DL (32.0-36.0); MEAN CORPUSCULAR VOLUME 94 FL (80-99); MEAN PLATELET VOLUME 6.8 FL (6.5-10.1); NEUTROPHILS % (AUTO) 77.3 % (45.0-75.0); PLATELET COUNT 351 K/UL (150-450); RED BLOOD COUNT 3.24 M/UL (4.70-6.10); RED CELL DISTRIBUTION WIDTH 12.5 % (11.6-14.8); WHITE BLOOD COUNT 11.8 K/UL (4.8-10.8)
[2017-05-25 08:18] LABS: ALANINE AMINOTRANSFERASE 23 U/L (12-78); ALBUMIN/GLOBULIN RATIO 0.5 (1.0-2.7); ANION GAP 3 mmol/L (5-15); ASPARTATE AMINO TRANSFERASE 17 U/L (15-37); CALCIUM 8.6 MG/DL (8.5-10.1); CARBON DIOXIDE 29 MMOL/L (21-32); CHLORIDE 105 MMOL/L (98-107); CREATININE 0.8 MG/DL (0.55-1.30); GLOMERULAR FILTRATION RATE > 60 mL/min (>60); MAGNESIUM 1.8 MG/DL (1.8-2.4); POTASSIUM 3.9 MMOL/L (3.5-5.1); SODIUM 137 MMOL/L (136-145); TOTAL PROTEIN 7.3 G/DL (6.4-8.2)
[2017-05-25 08:27] VITALS: BP 135/59
[2017-05-25] MEDS: Docusate 100mg cap ORAL SCH ×2 (09:00→22:14)
[2017-05-25] MEDS ORDERED: ARIPiprazole 10mg tab ORAL SCH (09:00)
--- NOTE | 2017-05-25 09:04 | Diagnostic Imaging Report ---
Indications:Pain, status post fall Technique: 2 views of the left elbow Comparison: None Findings:Are there is joint effusion, manifested by level were of fat pads. No definite acute fracture is demonstrated. However, there is marked erosion of the posterior cortex of the olecranon, with fragmentation and elevation of the posterior cortex. No dislocations Impression:Evidence of destructive process involving the anterior olecranon. This could be infectious or neoplastic, among other possibilities. Positive for joint effusion No definite acute fracture Findings discussed by phone with Dr. Erazo in the emergency room at the time of interpretation
[2017-05-25] MEDS: Heparin 5000 units/ml inj SUBQ SCH ×2 (09:52→22:21)
--- NOTE | 2017-05-25 11:22 | Diagnostic Imaging Report ---
Indication: PAIN Technique: One view of the chest Comparison: 04/19/2017 Findings: Lungs and pleural spaces are clear. Heart size is normal. No significant change Impression: No acute process
[2017-05-25 11:43] VITALS: BP 142/78
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
--- NOTE | 2017-05-25 15:10 | Infectious Diseases Prog Note ---
Assessment/Plan Assessment/Plan Ful consult dictate: A) 1) left elbow infected wound, ? osteo, ? septic arthritis/bursitis 2) hiv 3) allergies - negative P) 1) vancomycin, cefepime 2) check wound culture, labs, MRI left elbow 3) surgery evaluation, ? arthrocentesis 4) d/w Dr. Almonte 5) thank you Subjective Allergies: Coded Allergies: No Known Allergies (Unverified , 11/23/16) Objective Vital Signs Last 24 Hour Vital Signs Date Time Temp Pulse Resp B/P (MAP) Pulse Ox O2 Delivery O2 Flow Rate FiO2 05/25/17 11:43 98.3 85 20 142/78 98 Room Air 05/25/17 08:27 98.2 79 20 135/59 98 Room Air 05/25/17 04:00 96.8 86 20 120/59 96 Room Air 05/25/17 03:52 83 05/25/17 00:01 82 05/25/17 00:00 96.8 54 20 115/57 97 Room Air 05/24/17 21:35 97.9 84 20 114/73 96 Room Air 05/24/17 21:30 97.9 81 19 134/66 99 Room Air 05/24/17 21:00 97.9 81 19 134/66 99 Room Air 05/24/17 19:00 74 16 118/62 98 Room Air 05/24/17 15:39 98.4 72 20 91/53 99 Room Air 05/24/17 15:28 98.4 90 20 91/53 99 Room Air Height (Feet): 5 Height (Inches): 3.00 Weight (Pounds): 110 Laboratory Tests Test 05/24/17 17:21 05/24/17 18:40 05/24/17 20:30 05/25/17 07:30 White Blood Count 11.1 K/UL (4.8-10.8) H 11.8 K/UL (4.8-10.8) H Red Blood Count 3.43 M/UL (4.70-6.10) L 3.24 M/UL (4.70-6.10) L Hemoglobin 10.4 G/DL (14.2-18.0) L 10.3 G/DL (14.2-18.0) L Hematocrit 32.5 % (42.0-52.0) L 30.5 % (42.0-52.0) L Mean Corpuscular Volume 95 FL (80-99) 94 FL (80-99) Mean Corpuscular Hemoglobin 30.4 PG (27.0-31.0) 31.7 PG (27.0-31.0) H Mean Corpuscular Hemoglobin Concent 32.1 G/DL (32.0-36.0) 33.6 G/DL (32.0-36.0) Red Cell Distribution Width 12.3 % (11.6-14.8) 12.5 % (11.6-14.8) Platelet Count 339 K/UL (150-450) 351 K/UL (150-450) Mean Platelet Volume 6.4 FL (6.5-10.1) L 6.8 FL (6.5-10.1) Neutrophils (%) (Auto) 78.4 % (45.0-75.0) H 77.3 % (45.0-75.0) H Lymphocytes (%) (Auto) 13.2 % (20.0-45.0) L 15.9 % (20.0-45.0) L Monocytes (%) (Auto) 7.1 % (1.0-10.0) 6.0 % (1.0-10.0) Eosinophils (%) (Auto) 0.7 % (0.0-3.0) 0.5 % (0.0-3.0) Basophils (%) (Auto) 0.7 % (0.0-2.0) 0.3 % (0.0-2.0) Erythrocyte Sedimentation Rate 103 MM/HR (0-20) H Sodium Level 126 MMOL/L (136-145) L 137 MMOL/L (136-145) # Potassium Level 3.8 MMOL/L (3.5-5.1) 3.9 MMOL/L (3.5-5.1) Chloride Level 91 MMOL/L (98-107) L 105 MMOL/L (98-107) Carbon Dioxide Level 27 MMOL/L (21-32) 29 MMOL/L (21-32) Anion Gap 8 mmol/L (5-15) 3 mmol/L (5-15) L Blood Urea Nitrogen 17 mg/dL (7-18) 10 mg/dL (7-18) Creatinine 1.2 MG/DL (0.55-1.30) 0.8 MG/DL (0.55-1.30) Estimat Glomerular Filtration Rate > 60 mL/min (>60) > 60 mL/min (>60) Glucose Level 683 MG/DL (74-106) *H 60 MG/DL (74-106) #L Lactic Acid Level 2.00 mmol/L (0.66-2.22) 0.60 mmol/L (0.66-2.22) L Calcium Level 9.2 MG/DL (8.5-10.1) 8.6 MG/DL (8.5-10.1) Magnesium Level 2.0 MG/DL (1.5-2.4) 1.8 MG/DL (1.8-2.4) Total Bilirubin 0.3 MG/DL (0.2-1.0) 0.2 MG/DL (0.2-1.0) Aspartate Amino Transf (AST/SGOT) 18 U/L (15-37) 17 U/L (15-37) Alanine Aminotransferase (ALT/SGPT) 21 U/L (12-78) 23 U/L (12-78) Alkaline Phosphatase 138 U/L (46-116) H 112 U/L (46-116) Total Creatine Kinase 185 U/L (26-308) Creatine Kinase MB 8.8 NG/ML (0.0-3.6) H Creatine Kinase MB Relative Index 4.7 Troponin I 0.000 ng/mL (0.000-0.056) C-Reactive Protein, Quantitative 9.5 mg/dL (0.00-0.90) H Total Protein 8.3 G/DL (6.4-8.2) H 7.3 G/DL (6.4-8.2) Albumin 2.8 G/DL (3.4-5.0) L 2.4 G/DL (3.4-5.0) L Globulin 5.5 g/dL 4.9 g/dL Albumin/Globulin Ratio 0.5 (1.0-2.7) L 0.5 (1.0-2.7) L Acetone Level Negative (NEGATIVE) Urine Color Pale yellow Urine Appearance Clear Urine pH 7 (4.5-8.0) Urine Specific [place] 1.005 (1.005-1.035) Urine Protein 2+ (NEGATIVE) H Urine Glucose (UA) 4+ (NEGATIVE) H Urine Ketones Negative (NEGATIVE) Urine Occult Blood 1+ (NEGATIVE) H Urine Nitrite Negative (NEGATIVE) Urine Bilirubin Negative (NEGATIVE) Urine Urobilinogen Normal MG/DL (0.0-1.0) Urine Leukocyte Esterase Negative (NEGATIVE) Urine RBC 0-2 /HPF (0 - 0) H Urine WBC 0-2 /HPF (0 - 0) Urine Squamous Epithelial Cells None /LPF (NONE/OCC) Urine Bacteria Few /HPF (NONE) Current Medications Medications (Trade) Dose Ordered Sig/Antoni Route PRN Reason Start Time Stop Time Status Last Admin Dose Admin Acetaminophen (Tylenol) 650 mg Q4H PRN ORAL Mild Pain (Pain Scale 1-3) 05/24/17 18:30 06/23/17 18:29 Acetaminophen/ Hydrocodone Bitart ([place] 10/325) 1 ea Q4H PRN ORAL severe pain (7-10) 05/24/17 18:45 05/31/17 18:44 Acetaminophen/ Hydrocodone Bitart ([place] 5/325) 1 tab Q4H PRN ORAL MODERATE PAIN (4-6) 05/24/17 18:45 05/31/17 18:44 Al Hydroxide/Mg Hydroxide (Mylanta II) 30 ml Q6H PRN ORAL dyspepsia 05/24/17 18:30 06/23/17 18:29 Aripiprazole (Abilify) 10 mg DAILY ORAL 05/25/17 09:00 06/24/17 08:59 05/25/17 09:00 Dextrose (Dextrose 50%) STAT PRN IV Hypoglycemia 05/24/17 18:45 06/23/17 18:44 Diphenhydramine HCl (Benadryl) 25 mg Q6H PRN ORAL Itching/Pruritis 05/24/17 18:30 06/23/17 18:29 Docusate Sodium (Colace) 100 mg EVERY 12 HOURS ORAL 05/24/17 21:00 06/23/17 20:59 05/24/17 22:51 Emtricitabine/ Tenofovir (Truvada 200/ 300mg) 1 tab DAILY ORAL 05/25/17 09:00 06/24/17 08:59 UNV Escitalopram Oxalate (Lexapro) 10 mg DAILY ORAL 05/25/17 09:00 06/24/17 08:59 05/25/17 09:51 Gabapentin (Neurontin) 100 mg THREE TIMES A DAY ORAL 05/25/17 09:00 06/24/17 08:59 05/25/17 13:40 Heparin Sodium (Porcine) (Heparin 5000 units/ml) 5,000 units EVERY 12 HOURS SUBQ 05/24/17 21:00 06/23/17 20:59 05/25/17 09:52 Insulin Aspart (NovoLOG) BEFORE MEALS AND HS SUBQ 05/24/17 22:00 06/23/17 21:59 05/25/17 11:33 Ondansetron HCl (Zofran) 4 mg Q6H PRN IVP Nausea & Vomiting 05/24/17 18:30 06/23/17 18:29 Sodium Chloride 1,000 ml @ 75 mls/hr [id number] IVLG 05/24/17 21:30 06/23/17 21:29 05/25/17 10:02 Vancomycin HCl (Vanco rx to dose) 1 ea DAILY PRN MISC Per rx protocol 05/24/17 18:30 06/23/17 18:29 Vancomycin/Sodium Chloride 250 ml @ 166.667 mls/hr Q12HR@0600,1800 IVPB 05/25/17 06:00 05/30/17 05:59 05/25/17 05:19 CAROL REBOLLEDO May 25, 2017 15:10
[2017-05-25 15:32] VITALS: BP 119/61
--- NOTE | 2017-05-25 16:27 | Cardiology Report ---
APPROVED REPORT EKG Measurement Heart [id number] [place] [id number] Normal sinus rhythm Possible Left atrial enlargement Incomplete right bundle branch block Left anterior fascicular block Left ventricular hypertrophy Cannot rule out Septal infarct, age undetermined Abnormal ECG
[2017-05-25] MEDS ORDERED: Dolutegravir Sodium 50mg tab ORAL SCH (17:00)
[2017-05-25] MEDS ORDERED: Cefepime HCl 2 GM in D5W 55 ML IVPB SCH (17:00)
[2017-05-25] MEDS ORDERED: Epzicom tab ORAL SCH (17:00)
[2017-05-25 19:58] VITALS: BP 115/56
[2017-05-25] MEDS ORDERED: Norco 10mg/325mg tab ORAL PRN (21:30)
[2017-05-25] MEDS ORDERED: Mylanta II UD 30ml ORAL PRN (21:30)
[2017-05-25] MEDS ORDERED: Norco 5mg/325mg tab ORAL PRN (21:30)
[2017-05-26] VITALS: BP 124/62
--- NOTE | 2017-05-26 02:00 | Consultation ---
DATE OF CONSULTATION: 05/25/2017 CONSULTING PHYSICIAN: Torin Kim M.D. REFERRING PHYSICIAN: Juan Ramon Gutierrez M.D. CHIEF COMPLAINT: Left elbow pain and swelling. HISTORY OF PRESENT ILLNESS: The patient reports that he has had swelling of the left elbow for the last two weeks. He was admitted for left upper extremity cellulitis. Orthopedic consultation has been obtained for further care and recommendation. PAST MEDICAL HISTORY: Reviewed from the intake chart. PAST SURGICAL HISTORY: Reviewed from the intake chart. MEDICATIONS: Reviewed from the intake chart. PHYSICAL EXAMINATION: Examination shows an area of swelling along the left elbow. There is some fluctuance along the olecranon process area with a small punctate lesion. Neurovascular exam normal. Full elbow supination/ pronation without pain. RADIOGRAPHS: Two views of the left elbow revealed what appears to be possible osteomyelitis of the distal aspect of the olecranon. ASSESSMENT: Left elbow osteomyelitis. DISCUSSION: At this point, I would recommend getting an MRI of the left elbow. If there is a bony involvement, most likely he is going to require resection of the bone and retachment of the tendon. In the meantime, he can get appropriate intravenous antibiotics. Pending the MRI results. He will probably require higher level of care and should be placed on transfer list to [facility] for Dr freeman or Dr Herrera. Torin Kim M.D. DR: SHAJI JOB#: [id number] CC: JACEY
[2017-05-26 04:00] VITALS: BP 140/72
[2017-05-26] MEDS: Cefepime HCl 2 GM in D5W 55 ML IVPB SCH ×2 (04:59→17:27)
[2017-05-26] MEDS ORDERED: Vancomycin 750mg/NS 250ml 250 ML IVPB SCH (06:00)
[2017-05-26] MEDS: NovoLOG Insulin Flexpen SUBQ SCH ×3 (06:43→17:18)
[2017-05-26 07:05] LABS: ANION GAP 6 mmol/L (5-15); CARBON DIOXIDE 28 MMOL/L (21-32); CHLORIDE 98 MMOL/L (98-107); CREATININE 0.9 MG/DL (0.55-1.30); GLOMERULAR FILTRATION RATE > 60 mL/min (>60); POTASSIUM 3.7 MMOL/L (3.5-5.1); SODIUM 132 MMOL/L (136-145)
[2017-05-26 07:18] LABS: BASOPHILS % (AUTO) 0.7 % (0.0-2.0); EOSINOPHILS % (AUTO) 1.9 % (0.0-3.0); LYMPHOCYTES % (AUTO) 19.2 % (20.0-45.0); MEAN CORPUSCULAR HEMOGLOBIN 32.4 PG (27.0-31.0); MEAN CORPUSCULAR HGB CONC 33.8 G/DL (32.0-36.0); MEAN CORPUSCULAR VOLUME 96 FL (80-99); MEAN PLATELET VOLUME 6.8 FL (6.5-10.1); MONOCYTES % (AUTO) 6.4 % (1.0-10.0); NEUTROPHILS % (AUTO) 71.8 % (45.0-75.0); PLATELET COUNT 315 K/UL (150-450); RED BLOOD COUNT 3.52 M/UL (4.70-6.10); RED CELL DISTRIBUTION WIDTH 12.9 % (11.6-14.8)
--- NOTE | 2017-05-26 07:26 | General Progress Note ---
Assessment/Plan Problem List: (1) L elbow wound Assessment & Plan: Concern for septic joint/bursitis vs osteomyelitis (2) Cellulitis of left elbow ICD Codes: L03.114 - Cellulitis of left upper limb SNOMED: 191730799 (3) Uncontrolled diabetes mellitus ICD Codes: E11.65 - Type 2 diabetes mellitus with hyperglycemia SNOMED: 674436064, 64271998 (4) HIV (human immunodeficiency virus infection) ICD Codes: B20 - Human immunodeficiency virus [HIV] disease SNOMED: 57223191 (5) Bipolar disorder with depression ICD Codes: F31.30 - Bipolar disorder, current episode depressed, mild or moderate severity, unspecified SNOMED: 89017512 (6) Tobacco abuse ICD Codes: Z72.0 - Tobacco use SNOMED: 70122587, 053481658 (7) Hx of right BKA ICD Codes: Z89.511 - Acquired absence of right leg below knee SNOMED: 306822680, 793788134, 643685119 (8) Homelessness ICD Codes: Z59.0 - Homelessness SNOMED: 71677735 Status: stable Assessment/Plan Ortho surgery and ID consulted Empiric vanco (05/24-) and cefepime (05/25-) Inflammatory markers elevated w/ ESR 103, CRP 9.5 F/u blood cultures--ngtd F/u MRI L elbow to evaluate for osteomyelitis Consider arthrocentesis of L elbow pending MRI Cont home meds KIRTI SW consult for homelessness Podiatry consult for wound care Pain control, bowel regimen Supportive care CM consulted as likely needs SNF placement if long-term IV abx needed DVT Prophylaxis: SCD, HSQ Code Status: Full Hospital Classification Declaration: Based on this initial evaluation, and depending on the patient's clinical course, I anticipate that this patient will require hospitalization for 2-3 days for L elbow infection, concern for osteomyelitis and close respiratory/hemodynamic monitoring. Disposition: Once the patient is stable to leave the hospital, I anticipate the patient will likely be discharged to the following environment: residential vs SNF I spent 43 minutes on this patient's case, and 24 minutes were dedicated to counseling and/or care coordination. Discussed with patient/family, nursing staff, SW/CM, ortho, ID regarding clinical status, treatment course, and disposition planning. Time of note may not reflect time of encounter. Subjective Date patient seen: May 25, 2017 Time patient seen: 12:00 ROS Limited/Unobtainable: No Constitutional: Reports: weakness HEENT: Reports: no symptoms Respiratory: Reports: no symptoms Gastrointestinal/Abdominal: Reports: no symptoms Genitourinary: Reports: no symptoms Neurologic/Psychiatric: Reports: no symptoms Endocrine: Reports: no symptoms Hematologic/Lymphatic: Reports: no symptoms Allergies: Coded Allergies: No Known Allergies (Unverified , 11/23/16) All Systems: reviewed and negative except above Subjective No acute o/n events BG 60s this AM, now improved Cont on IV abx. ID added cefepime Awaiting MRI L elbow Pt states pain controlled. Denies f/c, n/v, d/c, chest pain, SOB Wants to talk to [facility] shelter Objective Last 24 Hour Vital Signs Date Time Temp Pulse Resp B/P (MAP) Pulse Ox O2 Delivery O2 Flow Rate FiO2 05/26/17 04:00 97.5 73 18 140/72 97 Room Air 05/26/17 00:00 97.7 72 20 124/62 100 Room Air 05/25/17 19:58 80 18 115/56 98 Room Air 05/25/17 16:00 85 05/25/17 15:32 98.4 78 20 119/61 97 05/25/17 11:43 98.3 85 20 142/78 98 Room Air 05/25/17 08:27 98.2 79 20 135/59 98 Room Air Laboratory Tests 05/25/17 07:30: White Blood Count 11.8H, Red Blood Count 3.24L, Hemoglobin 10.3L, Hematocrit 30.5L, Mean Corpuscular Volume 94, Mean Corpuscular Hemoglobin 31.7H, Mean Corpuscular Hemoglobin Concent 33.6, Red Cell Distribution Width 12.5, Platelet Count 351, Mean Platelet Volume 6.8, Neutrophils (%) (Auto) 77.3H, Lymphocytes ( %) (Auto) 15.9L, Monocytes (%) (Auto) 6.0, Eosinophils (%) (Auto) 0.5, Basophils (%) (Auto) 0.3, Sodium Level 137#, Potassium Level 3.9, Chloride Level 105, Carbon Dioxide Level 29, Anion Gap 3L, Blood Urea Nitrogen 10, Creatinine 0.8, Estimat Glomerular Filtration Rate > 60, Glucose Level 60#L, Calcium Level 8.6, Magnesium Level 1.8, Total Bilirubin 0.2, Aspartate Amino Transf (AST/SGOT) 17, Alanine Aminotransferase (ALT/SGPT) 23, Alkaline Phosphatase 112, Total Protein 7.3, Albumin 2.4L, Globulin 4.9, Albumin/ Globulin Ratio 0.5L 05/26/17 05:00: Sodium Level 132L, Potassium Level 3.7, Chloride Level 98, Carbon Dioxide Level 28, Anion Gap 6, Blood Urea Nitrogen 12, Creatinine 0.9, Estimat Glomerular Filtration Rate > 60, Glucose Level 386#H, Calcium Level 9.0 05/26/17 05:05: White Blood Count [Pending], Red Blood Count [Pending], Hemoglobin [Pending], Hematocrit [Pending], Mean Corpuscular Volume [Pending], Mean Corpuscular Hemoglobin [Pending], Mean Corpuscular Hemoglobin Concent [Pending], Red Cell Distribution Width [Pending], Platelet Count [Pending], Mean Platelet Volume [ Pending], Neutrophils (%) (Auto) [Pending], Lymphocytes (%) (Auto) [Pending], Monocytes (%) (Auto) [Pending], Eosinophils (%) (Auto) [Pending], Basophils (%) (Auto) [Pending] Height (Feet): 5 Height (Inches): 3.00 Weight (Pounds): 110 Objective General: alert, cooperative, no distress, appears stated age, thin Head: normocephalic, without obvious abnormality, atraumatic Eyes: conjunctivae/corneas clear. PERRL, EOM's intact Throat: lips, mucosa, and tongue normal. MMM Neck: supple, symmetrical, trachea midline, and no JVD Lungs: clear to auscultation bilaterally Heart: regular rate and rhythm, S1, S2 normal, no murmur, click, rub or gallop Abdomen: soft, non-tender, non-distended, bowel sounds normal; no masses or organomegaly Extremities: extremities normal, atraumatic, no cyanosis or edema Pulses: 2+ and symmetric Skin: +R BKA, + L elbow TTP w/ edema/erythema/effusion, ROM limited 2/2 pain Neurologic: grossly normal, no focal deficits Gage Hermosillo M.D. May 26, 2017 07:25
[2017-05-26 08:00] VITALS: BP 111/57
[2017-05-26] MEDS ORDERED: Epzicom tab ORAL SCH (09:00)
[2017-05-26] MEDS ORDERED: ARIPiprazole 10mg tab ORAL SCH (09:00)
[2017-05-26] MEDS ORDERED: Dolutegravir Sodium 50mg tab ORAL SCH (09:00)
[2017-05-26] MEDS ORDERED: Levemir Flexpen SUBQ SCH (09:00)
[2017-05-26] MEDS: Docusate 100mg cap ORAL SCH (09:44)
--- NOTE | 2017-05-26 09:44 | Diagnostic Imaging Report ---
Indication: Elbow pain, abnormal left none on recent radiograph Technique: Axial, coronal, sagittal T1, axial and sagittal STIR, coronal T2 PROPELLER images obtained of the left elbow Comparison: Reference made to plain radiographs dated 05/24/2017 Findings: There is a sizable joint effusion. There is cortical irregularity and cortical loss of the posterior olecranon. Deep to this, there is considerable low T1 signal, less striking increased T2 and STIR signal. This involves nearly the entire olecranon, with erosive changes being most predominant medially. There is a large elbow joint effusion. There is a fluid collection in the soft tissues posterior to the olecranon which extends from the skin surface to the bony cortex, is a bilobed, measures approximately 2 cm AP by 1.8 cm transverse by 3.5 cm in length. High signal is seen within the triceps tendon, especially medially and at the attachment to the olecranon. There is considerable edema of the subcutaneous fat, especially posteriorly but also anteriorly. There is extensive high STIR and T2 signal within the distal triceps musculature, and to lesser extent within the anterior musculature. No marrow signal abnormality is seen within the humerus or the radius. The joint spaces appear to be preserved. Impression: Erosion of the cortex and abnormal signal within the olecranon, consistent with osteomyelitis Large elbow joint effusion. Possibly reactive, but septic arthritis cannot be ruled out 2 x 1.8 x 3.5 cm fluid collection extending from the posterior skin surface to the olecranon, consistent with soft tissue abscess, likely associated soft tissue ulcer High signal within the triceps tendon, most likely represents infection within the triceps tendon. Associated tear not excludable Considerable edema of the subcutaneous fat, circumferential especially posteriorly. Nonspecific but given the above findings likely representing soft tissue cellulitis. Extensive edema of the triceps musculature, less extensive edema of the anterior musculature, suspicious for myositis Findings discussed by phone with Dr. Hermosillo at the time of interpretation
[2017-05-26] MEDS: Heparin 5000 units/ml inj SUBQ SCH (09:55)
[2017-05-26 12:00] VITALS: BP 144/64
--- NOTE | 2017-05-26 15:01 | Consultation ---
Consult Note Assessment/Plan Podiatry Consult Dictated A/ 1) Tinea Pedis 2) DM 3) HIV 4) Right BKA P/ Will order topical antifungal to be applied daily Patient to get shower in AM Thank you Matt England DPM May 26, 2017 15:01
[2017-05-26 16:00] VITALS: BP 143/73
[2017-05-26] MEDS ORDERED: Vancomycin 1gm/D5W 275ml IVPB SCH ×2 (19:30)
--- NOTE | 2017-05-26 21:00 | Consultation ---
DATE OF CONSULTATION: 05/26/2017 REQUESTING PHYSICIAN: Dr. Gage Hermosillo, REASON FOR CONSULTATION: Possible kidney infection (diabetes mellitus and HIV). HISTORY OF PRESENT ILLNESS: The patient is a 52-year-old male who was admitted to [facility] on 05/26/2017 for left elbow cellulitis and hyperglycemia. The patient complaints of pedal itching and fissuring and states that he lost his right leg to infection and is concerned about his left foot. PAST MEDICAL HISTORY: Significant for diabetes mellitus, BKA, bipolar with depression, and HIV. MEDICATIONS: Per SEP. ALLERGIES: Pollen. SOCIAL HISTORY: The patient is homeless. FAMILY HISTORY: Noncontributory. REVIEW OF SYSTEMS: HEENT: The patient denies any headaches, blurred vision, or ringing in the ears. CARDIORESPIRATORY: The patient denies any chest pain or shortness of breath. GENITOURINARY: The patient denies any urgency, frequency, or burning upon urination or hematuria. GASTROINTESTINAL: The patient denies any constipation, diarrhea, or blood in the stool. PHYSICAL EXAMINATION: VITAL SIGNS: Temperature is 97.5 degrees, pulse is 82, respirations 18, blood pressure is 144/64, and saturating 100% on room air. EXTREMITIES: Lower extremity physical exam, left foot palpable pedal pulses noted to the dorsalis pedis and posterior tibial arteries. No edema or cyanosis is noted. There is hair noted on the digits. DERMATOLOGICAL: Skin is dry, flaky with fissuring noted. No signs of acute bacterial infection. No erythema noted. MUSCULOSKELETAL: A 4/5 muscle strength is noted in anterolateral and posterior muscle groups of the left lower extremity. No gross deformity is noted. There is a right BKA noted. NEUROLOGICAL: Protective threshold is diminished. Achilles deep tendon reflexes are 2+ on the left. No spasticity noted. LABORATORY AND DIAGNOSTIC DATA: No lower extremity imaging is noted. Laboratory data, white blood cell count is 9.0, hemoglobin and hematocrit is 11.4 and 33.7, and platelet count is 315. Sedimentation rate is 103. Glucose is 386. Albumin is 2.4. Potassium is 3.7, BUN is 12, and creatinine 0.9. C-reactive protein is 9.5. ASSESSMENT: 1. Tinea pedis. 2. Diabetes mellitus. 3. Human immunodeficiency virus. 4. Right below-knee amputation. PLAN: 1. We will order topical antifungal to be applied daily. The patient to get a shower in the morning. 2. There is osteomyelitis in the left elbow, which is likely contributing to his high inflammatory markers. Orthopedics is on the case. Thank you for the courtesy of this consultation. Matt Weems D.P.M. DR: MONTSE JOB#: [id number] CC:
--- NOTE | 2017-05-27 09:02 | Progress Note ---
DATE: 05/26/2017 INTERVAL HISTORY: The patient was admitted overnight with a concern for left elbow olecranon bursitis, possible olecranon osteomyelitis. He had an MRI performed. Currently on IV antibiotics. OBJECTIVE: Examination showed swelling on the left olecranon with small punctate lesion. Pain with elbow extension. Neurovascular is normal. MRI of the elbow shows bony involvement with erosion of the bone extending to the triceps tendon.. ASSESSMENT: Chronic left elbow osteomyelitis. At this point, he needs to be transferred to higher level of care for possible excision of the olecranon and reattachment of the triceps tendon. transfer to [facility] to Dr. Call or Dr Herrera. Torin Kim M.D. DR: Raheem JOB#: [id number] CC: JACEY
--- NOTE | 2017-05-27 20:40 | Discharge Summary ---
Discharge Summary Hospital Course Date of Admission May 24, 2017 at 17:07 Date of Discharge May 26, 2017 at 18:30 (AMA) Admitting Diagnosis left elbow cellulities, hyperglycemia Reason for Hospitalization: lef HPI 52yo male with pmh of DM2, s/p R BKA, bipolar d/o, depression, HIV (on HAART) who presents with L elbow pain/swelling/redness. Pt is poor historian. He states he fell from wheelchair abt 1-2 weeks ago and landed on his L elbow. He has had worsening pain/swelling/redness since. Denies head trauma or LOC. Pt states he is homeless. He has been noncompliant w/ some meds as he has not been able to get refills. States he has an HIV doctor that he sees. He also c/o subjective fevers/chills. Denies n/v, d/c, chest pain, SOB. Pt gets around in wheelchair. Of note, pt was here in Feb 2017 for similar complaints after a fall. He was treated w/ IV antibiotics and underwent drainage of possible abscess. There was concern for septic joint at the time but he decided to leave AMA. In ED, x-ray L elbow showed evidence of destructive process involving the anterior olecranon, possible infectious or neoplastic, as well as joint effusion. Pt given IVFs, vanco IV. Also given insulin regular 10U IV given BG 600s. Serum acetone neg. No AG acidosis on BMP. Consultations Infectious disease, Orthopedic surgery Hospital Course Pt was admitted and see by ortho and ID. He was continued on empiric vanco and cefepime was added per ID. ESR/CRP elevated. Pt underwent MRI L elbow which showed concern for osteomyelitis, possible septic arthritis, 2x1.8.3.5cm fluid collection c/w abscess. After discussion with ortho, decision was made that pt would like need surgery but that he would need transfer to higher level of care such as [facility] given complexity of care. Pt was set up with transfer. After discussion with patient abt transfer and possible surgery, pt anxious and he refused. He ultimately left against medical advice despite extensive counseling on risks of doing so including limb threatening infection. I Discharge Condition Upon Discharge: grave Discharge Disposition Patient left against medical advice Discharge Diagnoses: (1) Elbow osteomyelitis, left (2) Septic joint of left elbow (3) L elbow wound (4) Cellulitis of left elbow (5) Abscess of bursa, left elbow (6) DM2, uncontrolled (7) HIV (human immunodeficiency virus infection) (8) Bipolar disorder with depression (9) Nicotine dependence (10) Hx of right BKA Gage Hermosillo M.D. May 27, 2017 20:40
--- NOTE | 2017-05-30 08:15 | Consultation ---
DATE OF CONSULTATION: 05/26/2017 NOTE: POOR AUDIO QUALITY INFECTIOUS DISEASES CONSULTATION CONSULTING PHYSICIAN: Suraj Perea M.D. ATTENDING PHYSICIAN: Juan Ramon Gutierrez M.D. REASON FOR CONSULTATION: Infected left elbow wound, abscess, and osteomyelitis. CHIEF COMPLAINT: The patient's chief complaint coming in to the hospital was infected left elbow. HISTORY OF PRESENT ILLNESS: This is a 52-year-old male, who has a history of HIV. He is on antiretroviral therapy. It is unclear if he is on Triumeq and Truvada or just Triumeq. The patient presented to [facility] with elevated white count, just mildly elevated. Clinically, the patient had infected left elbow. When I saw the patient on 05/25/2017, I ordered an MRI and the MRI showed the following. It showed erosion of the cortex and abnormal signal within the olecranon consistent with osteomyelitis and also an effusion, cannot rule out septic arthritis and also fluid collection consistent with abscess. When I saw the patient, I started on vancomycin and cefepime. Wound culture was pending and ordered. MAR was noted. Orders were noted. Notes and records were reviewed. The patient's case was discussed with Dr. Almonte who is associated with Dr. Gutierrez and also communicated with Dr. Kim from Orthopedic Surgery. At that time, there was a recommendation for transfer to higher level of care before the complicated infection of the left elbow. PAST MEDICAL HISTORY: The patient has a past medical history of HIV, T-cell count unclear. He has a history of COPD, diabetes, and history of hypertension. He has a history of being on HAART therapy. He has a history of right BKA, history of bipolar disorder. MEDICATIONS: Upon reviewing the MAR, he is on the following medications. He is on Lotrimin, he is on Epzicom, Lexapro, dolutegravir, anti-retroviral tx, Abilify, and Neurontin. He was on vancomycin and cefepime. He is on NovoLog insulin, Tylenol, Mylanta, Benadryl, [place], and Zofran. ALLERGIES: Pollen. FAMILY HISTORY: Noncontributory. Negative for exposure to tuberculosis or cancer. SOCIAL HISTORY: Positive for smoking. No alcohol or drug abuse. REVIEW OF SYSTEMS: CONSTITUTIONAL: The patient has generalized weakness and fatigued. No fever, chills, or night sweats. HEAD AND NECK: No head pain or neck pain. CARDIAC: No chest pain. GASTROINTESTINAL: No nausea or vomiting. GENITOURINARY: No dysuria or frequency. PULMONARY: No congestion or shortness of breath. No hemoptysis. SKIN: No rash or itching. EXTREMITIES: He has left elbow pain and swelling. NEUROLOGIC: No seizures. PHYSICAL EXAMINATION: VITAL SIGNS: Temperature is 97.5, pulse rate 82, respiratory rate 18, blood pressure 144/64, and saturation 100%. GENERAL: Alert and responsive. No obvious distress. HEAD AND NECK: Oral exam, no thrush. Eye exam, no icterus. Normocephalic. No facial droop. No neck stiffness. Neck is supple. No JVD. HEART: Regular. No gallop or murmur. ABDOMEN: Soft. Positive bowel sounds. Nontender. No organomegaly. LUNGS: Clear bilaterally. No rhonchi or rales. SKIN: He has no rash. MUSCULOSKELETAL: Right BKA. His left leg is without cellulitis. PERIPHERAL VASCULAR: No gangrene of the left foot. Left elbow has infected wound and slough noted. Range of motion is fairly good, but may be some limitation secondary to pain. Certainly has cellulitis in addition to the infected wound. neuro - intact. GENITOURINARY: No [place]. LINES: Line sites without phlebitis. NEUROLOGIC: He has generalized weakness, but responsive. LABORATORY DATA: WBC as follows. On admission, white count 11.1. Now today, his white count is 9.0, hemoglobin 11.4. Sedimentation rate is 103. Creatinine is 0.6. UA, leukocyte esterase negative. Creatinine is 0.6. DIAGNOSTIC DATA: Chest x-ray was negative. No acute process. MRI of the left elbow showed the erosion of the cortex and abnormal signal within the olecranon consistent with osteomyelitis or effusion, cannot rule out septic arthritis and abscess or fluid collection noted. This was a left elbow MRI. Wound culture I believe was ordered and is pending. Blood culture is negative to date. Finals are pending. ASSESSMENT AND PLAN: 1. The patient has infected left elbow wound, osteomyelitis, and abscess. The patient is on vancomycin and cefepime. The patient was seen by Orthopedic Surgery and they will like to transfer to high level of care for this complicated infection of left elbow. Continue vancomycin and cefepime. Check wound culture. Continue wound care protocol. Continue antibiotics of vancomycin and cefepime for left elbow abscess, osteomyelitis, and infected wound. 2. Human immunodeficiency virus. Continue antiretroviral therapy and the patient will follow up with his primary HIV physician. 3. Pain management. 4. Diabetes and hypertension. 5. Right [id number] amputation. 6. Bipolar disease. 7. Depression. 8. Tobacco abuse. 9. Blood sugar and blood pressure control for diabetes and hypertension per primary. 10. Social history is positive for smoking. 11. d/w RN 12. MAR was noted. 13. wound care per protocol 14. Family history is noncontributory. 15. Allergies to pollen 16. Continue treatment per primary product management consultant. 17. Case communicated with Dr. Almonte and Dr. Kim. Suraj Perea M.D. DR: Gustabo JOB#: [id number] CC: JACEY
== END 2017-05-26 18:30 | disposition left against medical advice (07) | DRG 637 ==
LOC: EDBD → EMR 16:00 → 2E 17:07 → EDBD 17:07 → UNMERGE 17:07 → MERGE 17:07 → EDBEDREQ 17:08 → EDBEDREQSVC 17:55 → EDBEDREQ 17:55 → 4W 05-25 18:04
DX: E11.69 Type 2 diabetes mellitus with other specified complication (principal); B20 Human immunodeficiency virus [HIV] disease; M00.9 Pyogenic arthritis, unspecified; M86.68 Other chronic osteomyelitis, other site; E11.65 Type 2 diabetes mellitus with hyperglycemia; F17.210 Nicotine dependence, cigarettes, uncomplicated; B35.3 Tinea pedis; F32.9 Major depressive disorder, single episode, unspecified; L03.114 Cellulitis of left upper limb; F31.9 Bipolar disorder, unspecified; Z91.14 Patient's other noncompliance with medication regimen; Z59.0 Homelessness; Z89.511 Acquired absence of right leg below knee; Z79.4 Long term (current) use of insulin; Z53.21 Procedure and treatment not carried out due to patient leaving prior to being seen by health care provider; Z23 Encounter for immunization
CPT/HCPCS: 36415; 71010; 80048; 80053; 80202; 81003; 82009; 82550; 82553; 82962; 83605; 83735; 84484; 85025; 85651; 86140; 87040; 90471; 90715; 93005; 99285; J1815; J8499; S5561

== ENCOUNTER 2017-08-09 20:41 | Inpatient (IN) | payer MEDICARE, OTHER ==
[~2017-08-09] VITALS: Ht 152.4 cm; Wt 49.4 kg
[2017-08-09 21:10] VITALS: BP 101/48
[2017-08-09] MEDS ORDERED: Acetaminophen 500mg (ES) tab ORAL ONE (23:15)
[2017-08-09 23:25] VITALS: BP 112/58
[2017-08-10] VITALS (7 sets, daily range): BP systolic 108–117; BP diastolic 50–69
--- NOTE | 2017-08-10 02:43 | Emergency Room Report ---
History of Present Illness General Chief Complaint: Pain Source: Patient Present Illness HPI 52-year-old male, homeless, multiple visits to the emergency room, diabetes, right BKA, presenting with left leg pain. States that he has been having pain above his left knee, worse with movement. It is wheelchair-bound. No fever no chills. He has been having his pain for a long time. No trauma Allergies: Uncoded Allergies: POLLEN (Allergy, Unknown, 07/23/16) Patient History Past Medical History: see triage record Past Surgical History: none Pertinent Family History: none Reviewed Nursing Documentation: PMH: Agreed, PSxH: Agreed Nursing Documentation-PMH Hx Hypertension: Yes Hx Pacemaker: No Hx Asthma: No Hx COPD: No Hx Diabetes: Yes Hx Cancer: No Hx Gastrointestinal Problems: No Hx Dialysis: No Hx Neurological Problems: No Hx Cerebrovascular Accident: No Hx Seizures: No Review of Systems All Other Systems: negative except mentioned in HPI Physical Exam Vital Signs Date Time Temp Pulse Resp B/P (MAP) Pulse Ox O2 Delivery O2 Flow Rate FiO2 08/09/17 20:53 99.0 82 16 99/45 95 Room Air Sp02 EP Interpretation: reviewed, normal General Appearance: alert, GCS 15, mild distress Head: normocephalic, atraumatic Eyes: bilateral eye normal inspection, bilateral eye PERRL, bilateral eye EOMI ENT: normal ENT inspection, normal pharynx, normal voice, moist mucus membranes Neck: normal inspection, full range of motion, supple Respiratory: normal inspection, lungs clear, normal breath sounds, no respiratory distress, no retraction, no wheezing, speaking full sentences, chest symmetrical Cardiovascular #1: normal inspection, regular rate, rhythm, normal capillary refill Cardiovascular #2: 2+ radial (R), 2+ radial (L) Gastrointestinal: normal inspection, non tender, soft, non-distended, no guarding Musculoskeletal: other - Right BKA, left distal femur with mild tenderness, mild hematoma in the medial aspect, full range of motion of knee and hip, mild distal edema in the tib-fib, nontender calf. No signs of cellulitis Neurologic: normal inspection, alert, oriented x3, responsive, motor strength/ tone normal, sensory intact, speech normal Psychiatric: normal inspection, judgement/insight normal, memory normal Skin: normal inspection, normal color, no rash, warm/dry, well hydrated, normal turgor Medical Decision Making Diagnostic Impression: Primary Impression: Leg pain ER Course 52-year-old male with left leg pain, chronic DDX: Physical exam unremarkable, possible contusion, Albarran cyst, very low concern for fracture. Plan: X-ray, pain control ER course: Patient has remained stable during ED stay. X-rays negative Patient states that he just wants to sleep Disposition: Patient is to be discharged to home. Please note that this Emergency Department Report was dictated using Magicbloxspace engineer technology software, occasionally this can lead to erroneous entry secondary to interpretation by the dictation equipment Xray: Left femur 3 view Indication: Pain EP Interpretation: Yes Interpretation: No dislocation, no soft tissue swelling, no fractures Impression: No acute disease Electronically signed by Tosha Erazo MD Last Vital Signs Date Time Temp Pulse Resp B/P (MAP) Pulse Ox O2 Delivery O2 Flow Rate FiO2 08/09/17 21:10 98.9 84 17 101/48 97 Room Air Disposition: HOME, SELF-CARE Condition: Improved Patient Instructions: Musculoskeletal Pain Tosha Erazo M.D. Aug 10, 2017 02:43
[2017-08-10 04:10] LABS: HEMATOCRIT 32.3 % (42.0-52.0); HEMOGLOBIN 10.5 G/DL (14.2-18.0); MEAN CORPUSCULAR VOLUME 88 FL (80-99); PLATELET COUNT 453 K/UL (150-450); RED BLOOD COUNT 3.66 M/UL (4.70-6.10); RED CELL DISTRIBUTION WIDTH 14.2 % (11.6-14.8); WHITE BLOOD COUNT 21.9 K/UL (4.8-10.8)
[2017-08-10 04:20] LABS: ANION GAP 6 mmol/L (5-15); BLOOD UREA NITROGEN 19 mg/dL (7-18); CALCIUM 9.1 MG/DL (8.5-10.1); CARBON DIOXIDE 30 MMOL/L (21-32); CHLORIDE 96 MMOL/L (98-107); SODIUM 132 MMOL/L (136-145)
[2017-08-10 04:24] LABS: ALANINE AMINOTRANSFERASE 40 U/L (12-78); ALBUMIN 2.6 G/DL (3.4-5.0); ALBUMIN/GLOBULIN RATIO 0.5 (1.0-2.7); ALKALINE PHOSPHATASE 192 U/L (46-116); ASPARTATE AMINO TRANSFERASE 23 U/L (15-37); BILIRUBIN,TOTAL 0.4 MG/DL (0.2-1.0)
--- NOTE | 2017-08-10 04:51 | Emergency Room Report ---
History of Present Illness General Chief Complaint: Pain Source: Patient Present Illness HPI please see previous note for full history and physical Allergies: Uncoded Allergies: POLLEN (Allergy, Unknown, 07/23/16) Nursing Documentation-PMH Hx Hypertension: Yes Hx Pacemaker: No Hx Asthma: No Hx COPD: No Hx Diabetes: Yes Hx Cancer: No Hx Gastrointestinal Problems: No Hx Dialysis: No Hx Neurological Problems: No Hx Cerebrovascular Accident: No Hx Seizures: No Physical Exam Vital Signs Date Time Temp Pulse Resp B/P (MAP) Pulse Ox O2 Delivery O2 Flow Rate FiO2 08/09/17 20:53 99.0 82 16 99/45 95 Room Air Medical Decision Making Diagnostic Impression: Primary Impression: Leg pain Additional Impressions: Hyperglycemia Left foot infection ER Course Please see the previous note for full history / physical Repeat physical exam of left foot after uncovering old bandages: Foot is warm and well perfused, no gangrene of the toes, plantar surface with 2 x 2 acute on chronic ulceration, no purulent drainage EKG Diagnostic Results EP Interpretation: Yes Rate: normal Rhythm: NSR ST Segments: No acute changes ASA given to patient: No Rhythm Strip EP Interpretation: Yes Rate: 78 Rhythm: NSR, no PVCs, no ectopy Chest X-ray CXR: Ordered: Yes 1 view Indication: Pain EP interpretation: Yes Interpretation: No consolidation, no effusion, no PTX, no acute cardiopulmonary disease Impression: No acute disease Electronically signed by Tosha Erazo MD Xray: Left foot 2 view Indication: Pain EP Interpretation: Yes Interpretation: No dislocation, no soft tissue swelling, no fractures Impression: No acute disease Electronically signed by Tosha Erazo MD Laboratory Tests Test 08/10/17 03:28 08/10/17 04:00 Arterial Blood pH 7.463 (7.350-7.450) Arterial Blood Partial Pressure CO2 42.1 mmHg (35.0-45.0) Arterial Blood Partial Pressure O2 88.5 mmHg (75.0-100.0) Arterial Blood HCO3 29.5 mmol/L (22.0-26.0) H Arterial Blood Oxygen Saturation 95.5 % (92.0-98.0) Arterial Blood Base Excess 5.2 Josh Test Positive White Blood Count 21.9 K/UL (4.8-10.8) H Red Blood Count 3.66 M/UL (4.70-6.10) L Hemoglobin 10.5 G/DL (14.2-18.0) L Hematocrit 32.3 % (42.0-52.0) L Mean Corpuscular Volume 88 FL (80-99) Mean Corpuscular Hemoglobin 28.8 PG (27.0-31.0) Mean Corpuscular Hemoglobin Concent 32.6 G/DL (32.0-36.0) Red Cell Distribution Width 14.2 % (11.6-14.8) Platelet Count 453 K/UL (150-450) H Mean Platelet Volume 6.0 FL (6.5-10.1) L Neutrophils (%) (Auto) % (45.0-75.0) Lymphocytes (%) (Auto) % (20.0-45.0) Monocytes (%) (Auto) % (1.0-10.0) Eosinophils (%) (Auto) % (0.0-3.0) Basophils (%) (Auto) % (0.0-2.0) Neutrophils % (Manual) Pending Lymphocytes % (Manual) Pending Platelet Estimate Pending Platelet Morphology Pending Sodium Level 132 MMOL/L (136-145) L Potassium Level 4.0 MMOL/L (3.5-5.1) Chloride Level 96 MMOL/L (98-107) L Carbon Dioxide Level 30 MMOL/L (21-32) Anion Gap 6 mmol/L (5-15) Blood Urea Nitrogen 19 mg/dL (7-18) H Creatinine 1.0 MG/DL (0.55-1.30) Estimate Glomerular Filtration Rate > 60 mL/min (>60) Glucose Level 438 MG/DL (74-106) H Calcium Level 9.1 MG/DL (8.5-10.1) Magnesium Level 2.1 MG/DL (1.8-2.4) Total Bilirubin 0.4 MG/DL (0.2-1.0) Aspartate Amino Transferase (AST) 23 U/L (15-37) Alanine Aminotransferase (ALT) 40 U/L (12-78) Alkaline Phosphatase 192 U/L (46-116) H Total Protein 7.7 G/DL (6.4-8.2) Albumin 2.6 G/DL (3.4-5.0) L Globulin 5.1 g/dL Albumin/Globulin Ratio 0.5 (1.0-2.7) L Acetone Level Positive-small (NEGATIVE) Last Vital Signs Date Time Temp Pulse Resp B/P (MAP) Pulse Ox O2 Delivery O2 Flow Rate FiO2 08/10/17 03:50 98.7 75 20 109/50 99 Room Air Disposition: ADMITTED INPATIENT Condition: Serious Patient Instructions: Musculoskeletal Pain Tosha Erazo M.D. Aug 10, 2017 04:51
[2017-08-10] MEDS ORDERED: Vancomycin 1gm inj IVPB ONE (04:52)
[2017-08-10] MEDS ORDERED: Cefepime 1gm vial ONE (04:53)
[2017-08-10] MEDS ORDERED: Cefepime HCl 1 GM in NS 55 ML IV ONE (05:00)
[2017-08-10] MEDS ORDERED: Vancomycin 1 GM in NS 275 ML IVPB ONE (05:00)
[2017-08-10] MEDS ORDERED: traMADol 50mg tab ORAL PRN (08:30)
[2017-08-10] MEDS ORDERED: Miralax 17gm pkt ORAL PRN (08:30)
[2017-08-10] MEDS ORDERED: Cefepime HCl 1 GM in D5W 55 ML IVPB SCH (09:00)
--- NOTE | 2017-08-10 09:21 | Diagnostic Imaging Report ---
Indications: Pain, status post fall Technique: Two views of the left femur Comparison: None Findings: No acute fractures. No dislocations. The joint spaces are preserved Impression: Negative
--- NOTE | 2017-08-10 09:59 | Diagnostic Imaging Report ---
Indication: Chest pain Technique: One view of the chest Comparison: Findings: Prominent nipple shadow projects at the left lung base. The lungs and pleural spaces are clear. The heart size is normal. Impression: No acute process
[2017-08-10] MEDS ORDERED: LEVOFLOXACIN500 MG ORAL (10:02)
--- NOTE | 2017-08-10 10:03 | History and Physical ---
History of Present Illness General Date patient seen: Aug 10, 2017 Time patient seen: 11:00 Reason for Hospitalization: Pain Present Illness HPI 52yo male with pmh of uncontrolled DM2, s/p R BKA, bipolar d/o, depression, HIV (not on HAART), medical noncompliance who presents with LLE pain ofelia of L foot. Pt poor historian. He states pain has been going on for some time now but recently worsening. He does not recall a specific injury or traumatic event. He does bare weight on that leg barefoot often and gets around in wheelchair. Denies f/c, n/v, d/c, chest pain, SOB, abd pain. Reports noncompliance with medications, stating he could not get refills. In ER, pt noted to have multiple L foot wounds. X-ray foot concerning for foreign body in L plantar aspect. Labs showed WBC 21.9K. Pt given vanco and cefepime in ED. Pt also with hypergylcemia to 438. No e/o DKA. Given regular insulin 10U IV. Allergies: Uncoded Allergies: POLLEN (Allergy, Unknown, 07/23/16) Medication History Scheduled Atorvastatin Calcium* (Lipitor*), 20 MG ORAL BEDTIME, (Reported) Escitalopram Oxalate* (Lexapro*), 10 MG ORAL DAILY, (Reported) Gabapentin (Neurontin), 300 MG ORAL THREE TIMES A DAY, (Reported) Insulin Glargine (Lantus), 22 UNITS SUBQ BEDTIME Levofloxacin (Levofloxacin*), 750 MG ORAL DAILY, (Reported) Risperidone* (Risperdal*), 4 MG ORAL QHS, (Reported) Scheduled PRN Tramadol Hcl* (Ultram*), 50 MG ORAL Q12HR PRN for For Pain, (Reported) Discontinued Medications Amoxicillin/Potassium Clav 875-125* (Augmentin 875-125 Tablet*), 1 TAB ORAL TWICE A DAY Discontinued Reason: Pt stopped taking med Aripiprazole* (Abilify*), 20 MG ORAL DAILY, (Reported) Discontinued Reason: Pt stopped taking med Aripiprazole* (Abilify*), 10 MG ORAL DAILY, (Reported) Discontinued Reason: Pt stopped taking med Bacitracin Zinc (Antibiotic), 28.4 GM TP TID Discontinued Reason: Pt stopped taking med Efavirenz/Emtricitab/Tenofovir (Atripla Tablet), 1 TAB ORAL BID, (Reported) Discontinued Reason: Pt stopped taking med Emtricitabine/Tenofovir 200-300MG* (Truvada 200-300MG*), 1 TAB ORAL DAILY, ( Reported) Discontinued Reason: Pt stopped taking med Emtricitabine/Tenofovir 200-300MG* (Truvada 200-300MG*), 1 TAB ORAL DAILY, ( Reported) Discontinued Reason: Pt stopped taking med Escitalopram Oxalate* (Lexapro*), Unknown Dose ORAL DAILY, (Reported) Discontinued Reason: Pt stopped taking med Gabapentin* (Neurontin*), 100 MG ORAL THREE TIMES A DAY, (Reported) Discontinued Reason: Pt stopped taking med Ibuprofen* (Motrin*), 600 MG ORAL Q6H PRN for For Pain, (Reported) Discontinued Reason: Pt stopped taking med Ibuprofen* (Motrin*), 600 MG ORAL Q8H PRN for For Pain, (Reported) Discontinued Reason: Pt stopped taking med Insulin Aspart (Novolog), Unknown Dose SQ, (Reported) Discontinued Reason: Pt stopped taking med Insulin Aspart* (Novolog*), 0 SUBQ PRN Discontinued Reason: Pt stopped taking med Insulin Glargine (Lantus), Unknown Dose SUBQ BEDTIME, (Reported) Discontinued Reason: Pt stopped taking med Insulin Glargine (Lantus), 22 SUBQ BEDTIME, (Reported) Discontinued Reason: Pt stopped taking med Insulin Lispro (Humalog), 12 SUBQ TID, (Reported) Discontinued Reason: Pt stopped taking med Ramipril* (Ramipril*), 2.5 MG ORAL DAILY, (Reported) Discontinued Reason: Pt stopped taking med ["Antiviral"], Unknown Dose, (Reported) Discontinued Reason: Pt stopped taking med Patient History History Provided By: Patient, Medical Record Healthcare decision maker Resuscitation status Full Code Advanced Directive on File Past Medical/Surgical History Past Medical/Surgical History: (1) HIV (human immunodeficiency virus infection) (2) Uncontrolled diabetes mellitus (3) Bipolar disorder with depression (4) Status post below knee amputation of right lower extremity Family History Family History: Patient reports no known family medical history. Social History Social History: (1) Homelessness (2) Smokes 1.5 packs of cigarettes per day Review of Systems Constitutional: Reports: malaise, weakness Eye: Reports: no symptoms ENT: Reports: no symptoms Respiratory: Reports: no symptoms Cardiovascular: Reports: no symptoms Gastrointestinal: Reports: no symptoms Genitourinary: Reports: no symptoms Musculoskeletal: Reports: no symptoms Skin: Reports: no symptoms Psychiatric: Reports: no symptoms Neurological: Reports: no symptoms Endocrine: Reports: no symptoms Hematologic/Lymphatic: Reports: no symptoms Physical Exam Physical Exam Narrative General: alert, cooperative, no distress, appears stated age Head: normocephalic, without obvious abnormality, atraumatic Eyes: conjunctivae/corneas clear. PERRL, EOM's intact Throat: lips, mucosa, and tongue normal. MMM Neck: supple, symmetrical, trachea midline, and no JVD Lungs: clear to auscultation bilaterally Heart: regular rate and rhythm, S1, S2 normal, no murmur, click, rub or gallop Abdomen: soft, non-tender, non-distended, bowel sounds normal; no masses or organomegaly Extremities: +R BKA c/d/i, +multiple ulcers on plantar aspect--no drainage noted Neurologic: grossly normal, no focal deficits Last 24 Hour Vital Signs Date Time Temp Pulse Resp B/P (MAP) Pulse Ox O2 Delivery O2 Flow Rate FiO2 08/10/17 08:19 66 15 121/58 100 Room Air 08/10/17 07:07 98.7 75 20 111/54 99 Room Air 08/10/17 03:50 98.7 75 20 109/50 99 Room Air 08/10/17 01:25 78 17 108/55 100 Room Air 08/09/17 23:25 81 18 112/58 99 Room Air 08/09/17 21:10 98.9 84 17 101/48 97 Room Air 08/09/17 20:53 99.0 82 16 99/45 95 Room Air Intake and Output 08/09/17 08/10/17 19:00 07:00 Output Total 0 ml Balance 0 ml Output Urine Total 0 ml Laboratory Tests Test 08/10/17 03:28 08/10/17 04:00 Arterial Blood pH 7.463 (7.350-7.450) Arterial Blood Partial Pressure CO2 42.1 mmHg (35.0-45.0) Arterial Blood Partial Pressure O2 88.5 mmHg (75.0-100.0) Arterial Blood HCO3 29.5 mmol/L (22.0-26.0) H Arterial Blood Oxygen Saturation 95.5 % (92.0-98.0) Arterial Blood Base Excess 5.2 Josh Test Positive White Blood Count 21.9 K/UL (4.8-10.8) H Red Blood Count 3.66 M/UL (4.70-6.10) L Hemoglobin 10.5 G/DL (14.2-18.0) L Hematocrit 32.3 % (42.0-52.0) L Mean Corpuscular Volume 88 FL (80-99) Mean Corpuscular Hemoglobin 28.8 PG (27.0-31.0) Mean Corpuscular Hemoglobin Concent 32.6 G/DL (32.0-36.0) Red Cell Distribution Width 14.2 % (11.6-14.8) Platelet Count 453 K/UL (150-450) H Mean Platelet Volume 6.0 FL (6.5-10.1) L Neutrophils (%) (Auto) % (45.0-75.0) Lymphocytes (%) (Auto) % (20.0-45.0) Monocytes (%) (Auto) % (1.0-10.0) Eosinophils (%) (Auto) % (0.0-3.0) Basophils (%) (Auto) % (0.0-2.0) Differential Total Cells Counted 100 Neutrophils % (Manual) 90 % (45-75) H Lymphocytes % (Manual) 9 % (20-45) L Monocytes % (Manual) 1 % (1-10) Eosinophils % (Manual) 0 % (0-3) Basophils % (Manual) 0 % (0-2) Band Neutrophils 0 % (0-8) Platelet Estimate Adequate Platelet Morphology Normal Sodium Level 132 MMOL/L (136-145) L Potassium Level 4.0 MMOL/L (3.5-5.1) Chloride Level 96 MMOL/L (98-107) L Carbon Dioxide Level 30 MMOL/L (21-32) Anion Gap 6 mmol/L (5-15) Blood Urea Nitrogen 19 mg/dL (7-18) H Creatinine 1.0 MG/DL (0.55-1.30) Estimat Glomerular Filtration Rate > 60 mL/min (>60) Glucose Level 438 MG/DL (74-106) H Hemoglobin A1c 14.8 % (4.3-6.0) H Calcium Level 9.1 MG/DL (8.5-10.1) Magnesium Level 2.1 MG/DL (1.8-2.4) Total Bilirubin 0.4 MG/DL (0.2-1.0) Aspartate Amino Transf (AST/SGOT) 23 U/L (15-37) Alanine Aminotransferase (ALT/SGPT) 40 U/L (12-78) Alkaline Phosphatase 192 U/L (46-116) H Total Protein 7.7 G/DL (6.4-8.2) Albumin 2.6 G/DL (3.4-5.0) L Globulin 5.1 g/dL Albumin/Globulin Ratio 0.5 (1.0-2.7) L Acetone Level Positive-small (NEGATIVE) Height (Feet): 5 Height (Inches): 2.00 Weight (Pounds): 110 Medications Current Medications Medications (Trade) Dose Ordered Sig/Antoni Route PRN Reason Start Time Stop Time Status Last Admin Dose Admin Acetaminophen (Tylenol) 650 mg Q4H PRN ORAL Mild Pain (Pain Scale 1-3) 08/10/17 08:30 09/09/17 08:29 Acetaminophen (Tylenol) 650 mg Q4H PRN ORAL fever (Temp>100.5F) 08/10/17 08:30 09/09/17 08:29 Atorvastatin Calcium (Lipitor) 20 mg BEDTIME ORAL 08/10/17 21:00 09/09/17 20:59 Bisacodyl (Dulcolax) 10 mg DAILYPRN PRN RECTAL Constipation 08/10/17 09:00 09/09/17 08:29 Cefepime HCl 2 gm/ Sodium Chloride 110 ml @ 220 mls/hr EVERY 12 HOURS IV 08/10/17 21:00 08/17/17 20:59 Dextrose (Dextrose 50%) STAT PRN IV Hypoglycemia 08/10/17 08:45 09/09/17 08:44 Docusate Sodium (Colace) 100 mg EVERY 12 HOURS ORAL 08/10/17 09:00 09/09/17 08:59 Escitalopram Oxalate (Lexapro) 10 mg DAILY ORAL 08/10/17 09:00 09/09/17 08:59 Gabapentin (Neurontin) 300 mg THREE TIMES A DAY ORAL 08/10/17 10:00 09/09/17 09:59 Heparin Sodium (Porcine) (Heparin 5000 units/ml) 5,000 units EVERY 12 HOURS SUBQ 08/10/17 09:00 09/09/17 08:59 Insulin Aspart (NovoLOG) BEFORE MEALS AND HS SUBQ 08/10/17 11:30 09/09/17 11:29 Insulin Detemir (Levemir) 20 units DAILY SUBQ 08/10/17 10:00 09/09/17 09:59 Ondansetron HCl (Zofran) 4 mg Q6H PRN IVP Nausea & Vomiting 08/10/17 08:30 09/09/17 08:29 Polyethylene Glycol (Miralax) 17 gm DAILYPRN PRN ORAL Constipation 08/10/17 08:30 09/09/17 08:29 Risperidone (RisperDAL) 4 mg QHS ORAL 08/10/17 21:00 09/09/17 20:59 Sodium Chloride 1,000 ml @ 100 mls/hr Q10H IV 08/10/17 10:00 09/09/17 09:59 Tramadol HCl (Ultram) 50 mg Q4H PRN ORAL pain 4-10 08/10/17 08:30 08/17/17 08:29 Vancomycin HCl (Vanco rx to dose) 1 ea DAILY PRN MISC Per rx protocol 08/10/17 08:45 09/09/17 08:44 Vancomycin HCl 1 gm/Dextrose 275 ml @ 183.708 mls/hr Q12HR@0500,1700 IVPB 08/10/17 17:00 08/15/17 16:59 Assessment/Plan Problem List: (1) Multiple ulcers on plantar aspect of L foot (2) Foreign body in left foot with infection ICD Codes: S90.852A - Superficial foreign body, left foot, initial encounter; L08.9 - Local infection of the skin and subcutaneous tissue, unspecified SNOMED: 04457689 Qualifiers: Qualified Codes: S90.852A - Superficial foreign body, left foot, initial encounter; L08.9 - Local infection of the skin and subcutaneous tissue, unspecified (3) Sepsis ICD Codes: A41.9 - Sepsis, unspecified organism SNOMED: 36737738 (4) Medical non-compliance ICD Codes: Z91.19 - Patient's noncompliance with other medical treatment and regimen SNOMED: 556148565 (5) Uncontrolled diabetes mellitus ICD Codes: E11.9 - Type 2 diabetes mellitus without complications SNOMED: 613842895 (6) HIV (human immunodeficiency virus infection) ICD Codes: B20 - Human immunodeficiency virus [HIV] disease SNOMED: 29509274 (7) Hx of right BKA ICD Codes: Z89.511 - Acquired absence of right leg below knee SNOMED: 304576390, 814763537, 220116130 (8) tobacco abuse (9) Bipolar disorder with depression ICD Codes: F31.30 - Bipolar disorder, current episode depressed, mild or moderate severity, unspecified SNOMED: 05168322 (10) Hyponatremia ICD Codes: E87.1 - Hypo-osmolality and hyponatremia SNOMED: 38850780 (11) Hyperglycemia ICD Codes: R73.9 - Hyperglycemia, unspecified SNOMED: 39720699 Status: stable Assessment/Plan Admit inpt ID and surgery consulted Empiric vanco and cefepime for now F/u cultures Trend CBC MRI L foot ordered to eval for osteo Resume home meds Hold HAART as pt is noncompliant and states that he is not currently taking Check CD4 count Levemir 20U daily SSI Check A1C Nicotine patch ordered per pt request 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 Disposition: Once the patient is stable to leave the hospital, I anticipate the patient will likely be discharged to the following environment: [facility] + HH vs SNF I spent 74 minutes on this patient's case, and>50% was dedicated to counseling and/or care coordination. Discussed with patient/family, nursing staff, SW/CM, ID, surgery regarding clinical status, treatment course, and disposition planning. Time of note may not reflect time of encounter. Gage Hermosillo M.D. Aug 10, 2017 10:03
--- NOTE | 2017-08-10 10:08 | Diagnostic Imaging Report ---
Indication: Reason For Exam: PAIN Technique: 2 views left foot Comparison: none Findings: Probable metallic foreign body projects in the plantar surface of the foot inferior to the anterior calcaneus. This is not appreciated on the AP view. No soft tissue gas demonstrated. No acute fractures. No dislocations. Impression: Probable metallic foreign body in the plantar soft tissue of the foot, less likely artifactual. No acute bony trauma or soft tissue gas Findings discussed by phone with Dr. Hermosillo at the time of interpretation
[2017-08-10] MEDS: Docusate 100mg cap ORAL SCH ×2 (10:18→20:20)
[2017-08-10] MEDS: NovoLOG Insulin Flexpen SUBQ SCH ×3 (10:19→20:24)
[2017-08-10] MEDS: Levemir Flexpen SUBQ SCH (10:20)
[2017-08-10] MEDS: Heparin 5000 units/ml inj SUBQ SCH ×2 (10:20→20:22)
--- NOTE | 2017-08-10 11:18 | Diagnostic Imaging Report ---
Indication: Foot pain Technique: 3 views left foot Comparison: 6 hours prior Findings: There is metatarsus adductus and marked hallux valgus. Small calcific density projects in the soft tissues adjacent to the shaft of the second proximal phalanx. The joint spaces are preserved. No definite acute fractures. No dislocations. On the lateral view, 8mm long metallic foreign body again projects in the plantar soft tissues. This is also appreciable on the AP and oblique views Impression: Radiopaque foreign body in the plantar soft tissues of the foot confirmed, likely a broken off needle tip No acute bony trauma
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
--- NOTE | 2017-08-10 15:27 | Infectious Diseases Prog Note ---
Assessment/Plan Assessment/Plan Full consult dictated: A) 1) left foot infected wound/ulcer, ? osteo, sepsis, leukocytosis 2) hiv, aids, dm, pvd, right bka 3) allergies - pollen P) 1) vancomycin, cefepime and flagyl 2) check bc, labs and chest x-ray 3) check MRI 4) possible debridement Subjective Allergies: Uncoded Allergies: POLLEN (Allergy, Unknown, 07/23/16) Objective Vital Signs Last 24 Hour Vital Signs Date Time Temp Pulse Resp B/P (MAP) Pulse Ox O2 Delivery O2 Flow Rate FiO2 08/10/17 12:00 71 08/10/17 11:38 97.2 77 17 109/59 100 Room Air 08/10/17 09:00 96.8 71 12 117/61 100 Room Air 08/10/17 08:19 66 15 121/58 100 Room Air 08/10/17 07:07 98.7 75 20 111/54 99 Room Air 08/10/17 03:50 98.7 75 20 109/50 99 Room Air 08/10/17 01:25 78 17 108/55 100 Room Air 08/09/17 23:25 81 18 112/58 99 Room Air 08/09/17 21:10 98.9 84 17 101/48 97 Room Air 08/09/17 20:53 99.0 82 16 99/45 95 Room Air Height (Feet): 5 Height (Inches): 2.00 Weight (Pounds): 110 Laboratory Tests Test 08/10/17 03:28 08/10/17 04:00 Arterial Blood pH 7.463 (7.350-7.450) Arterial Blood Partial Pressure CO2 42.1 mmHg (35.0-45.0) Arterial Blood Partial Pressure O2 88.5 mmHg (75.0-100.0) Arterial Blood HCO3 29.5 mmol/L (22.0-26.0) H Arterial Blood Oxygen Saturation 95.5 % (92.0-98.0) Arterial Blood Base Excess 5.2 Josh Test Positive White Blood Count 21.9 K/UL (4.8-10.8) H Red Blood Count 3.66 M/UL (4.70-6.10) L Hemoglobin 10.5 G/DL (14.2-18.0) L Hematocrit 32.3 % (42.0-52.0) L Mean Corpuscular Volume 88 FL (80-99) Mean Corpuscular Hemoglobin 28.8 PG (27.0-31.0) Mean Corpuscular Hemoglobin Concent 32.6 G/DL (32.0-36.0) Red Cell Distribution Width 14.2 % (11.6-14.8) Platelet Count 453 K/UL (150-450) H Mean Platelet Volume 6.0 FL (6.5-10.1) L Neutrophils (%) (Auto) % (45.0-75.0) Lymphocytes (%) (Auto) % (20.0-45.0) Monocytes (%) (Auto) % (1.0-10.0) Eosinophils (%) (Auto) % (0.0-3.0) Basophils (%) (Auto) % (0.0-2.0) Differential Total Cells Counted 100 Neutrophils % (Manual) 90 % (45-75) H Lymphocytes % (Manual) 9 % (20-45) L Monocytes % (Manual) 1 % (1-10) Eosinophils % (Manual) 0 % (0-3) Basophils % (Manual) 0 % (0-2) Band Neutrophils 0 % (0-8) Platelet Estimate Adequate Platelet Morphology Normal Sodium Level 132 MMOL/L (136-145) L Potassium Level 4.0 MMOL/L (3.5-5.1) Chloride Level 96 MMOL/L (98-107) L Carbon Dioxide Level 30 MMOL/L (21-32) Anion Gap 6 mmol/L (5-15) Blood Urea Nitrogen 19 mg/dL (7-18) H Creatinine 1.0 MG/DL (0.55-1.30) Estimat Glomerular Filtration Rate > 60 mL/min (>60) Glucose Level 438 MG/DL (74-106) H Hemoglobin A1c 14.8 % (4.3-6.0) H Calcium Level 9.1 MG/DL (8.5-10.1) Magnesium Level 2.1 MG/DL (1.8-2.4) Total Bilirubin 0.4 MG/DL (0.2-1.0) Aspartate Amino Transf (AST/SGOT) 23 U/L (15-37) Alanine Aminotransferase (ALT/SGPT) 40 U/L (12-78) Alkaline Phosphatase 192 U/L (46-116) H Total Protein 7.7 G/DL (6.4-8.2) Albumin 2.6 G/DL (3.4-5.0) L Globulin 5.1 g/dL Albumin/Globulin Ratio 0.5 (1.0-2.7) L Acetone Level Positive-small (NEGATIVE) Current Medications Medications (Trade) Dose Ordered Sig/Antoni Route PRN Reason Start Time Stop Time Status Last Admin Dose Admin Acetaminophen (Tylenol) 650 mg Q4H PRN ORAL Mild Pain (Pain Scale 1-3) 08/10/17 08:30 09/09/17 08:29 Acetaminophen (Tylenol) 650 mg Q4H PRN ORAL fever (Temp>100.5F) 08/10/17 08:30 09/09/17 08:29 Atorvastatin Calcium (Lipitor) 20 mg BEDTIME ORAL 08/10/17 21:00 09/09/17 20:59 Bisacodyl (Dulcolax) 10 mg DAILYPRN PRN RECTAL Constipation 08/10/17 09:00 09/09/17 08:29 Cefepime HCl 2 gm/ Sodium Chloride 110 ml @ 220 mls/hr EVERY 12 HOURS IV 08/10/17 21:00 08/17/17 20:59 Dextrose (Dextrose 50%) STAT PRN IV Hypoglycemia 08/10/17 08:45 09/09/17 08:44 Docusate Sodium (Colace) 100 mg EVERY 12 HOURS ORAL 08/10/17 09:00 09/09/17 08:59 08/10/17 10:18 Escitalopram Oxalate (Lexapro) 10 mg DAILY ORAL 08/10/17 09:00 09/09/17 08:59 08/10/17 10:18 Gabapentin (Neurontin) 300 mg THREE TIMES A DAY ORAL 08/10/17 10:00 09/09/17 09:59 08/10/17 10:18 Heparin Sodium (Porcine) (Heparin 5000 units/ml) 5,000 units EVERY 12 HOURS SUBQ 08/10/17 09:00 09/09/17 08:59 08/10/17 10:20 Insulin Aspart (NovoLOG) BEFORE MEALS AND HS SUBQ 08/10/17 11:30 09/09/17 11:29 08/10/17 10:19 Insulin Detemir (Levemir) 20 units DAILY SUBQ 08/10/17 10:00 09/09/17 09:59 08/10/17 10:20 Ondansetron HCl (Zofran) 4 mg Q6H PRN IVP Nausea & Vomiting 08/10/17 08:30 09/09/17 08:29 Polyethylene Glycol (Miralax) 17 gm DAILYPRN PRN ORAL Constipation 08/10/17 08:30 09/09/17 08:29 Risperidone (RisperDAL) 4 mg QHS ORAL 08/10/17 21:00 09/09/17 20:59 Sodium Chloride 1,000 ml @ 100 mls/hr Q10H IV 08/10/17 10:00 09/09/17 09:59 08/10/17 10:20 Tramadol HCl (Ultram) 50 mg Q4H PRN ORAL pain 4-10 08/10/17 08:30 08/17/17 08:29 Vancomycin HCl (Vanco rx to dose) 1 ea DAILY PRN MISC Per rx protocol 08/10/17 08:45 09/09/17 08:44 Vancomycin HCl 1 gm/Dextrose 275 ml @ 183.708 mls/hr Q12HR@0500,1700 IVPB 08/10/17 17:00 08/15/17 16:59 CAROL REBOLLEDO Aug 10, 2017 15:27
[2017-08-10] MEDS: Vancomycin 1gm/D5W 275ml IVPB SCH ×2 (16:21)
--- NOTE | 2017-08-10 18:52 | Cardiology Report ---
APPROVED REPORT EKG Measurement Heart [id number] Normal sinus rhythm Left anterior fascicular block Minimal voltage criteria for LVH, may be normal variant Septal infarct, age undetermined Abnormal ECG
[2017-08-10] MEDS: Cefepime HCl 2 GM in NS 110 ML IV SCH (20:19)
[2017-08-11] VITALS: BP 93/59
--- NOTE | 2017-08-11 03:15 | Consultation ---
DATE OF CONSULTATION: 08/10/2017 NOTE: POOR AUDIO INFECTIOUS DISEASES CONSULTATION CONSULTING PHYSICIAN: Suraj Perea M.D. ATTENDING PHYSICIAN: Juan Ramon Gutierrez M.D. I was asked by Dr. Almonte to see this patient. REASON FOR CONSULTATION: Infected left foot wound infection, ulcer infection, possible osteo and sepsis, leukocytosis. The patient also history of HIV and AIDS. The patient's chief complaint coming into the hospital is left foot infection, hyperglycemia, and leukocytosis. HISTORY OF PRESENT ILLNESS: This is a 52-year-old male who comes in to [facility] with infected left foot. He has necrotic wound of the left foot and also another ulcer and could have underlying osteomyelitis. Infectious Diseases consultation is requested for antibiotic management of the infected left foot and ulcer with sepsis and elevated white count. The patient was placed on vancomycin, cefepime, and Flagyl. The patient also has history of HIV and AIDS and he has been off antiretroviral therapy by his choice for, he says, about a year. The patient will be continued on vancomycin, cefepime, and Flagyl pending workup. The patient has a possible foreign body in the left foot and Surgery is being consulted. X-ray of the left foot showed possible foreign body. No acute bony trauma. Case was discussed with Dr. Almonte. MAR was noted. Orders were noted. Notes were reviewed. Case discussed with RN. 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 He is off antiretroviral therapy. He has anemia. In addition to diabetes, he has hypertension. No history of cancer. No history of dialysis. Other past medical history includes history of COPD and bipolar disease. He also has history of abscess and cellulitis in the past, also looks like history of thrombus and history of hyperglycemia. MEDICATIONS: Upon reviewing the MAR, he is on the following medications. He is on Flagyl. He is on atorvastatin. He is on Risperdal, cefepime, vancomycin, insulin, gabapentin, Neurontin, and Levemir. He is on heparin, docusate, Lexapro, and bisacodyl. He is on dextrose, vancomycin, cefepime, Flagyl, and acetaminophen. He is on Zofran and tramadol. He has been off antiretroviral therapy for a year. ALLERGIES: Pollen. No antibiotic allergies. SOCIAL HISTORY: Positive for smoking. No alcohol or drug abuse. FAMILY HISTORY: Noncontributory. Negative for exposure of tuberculosis or cancer. REVIEW OF SYSTEMS: GENERAL: He has generalized fatigue. No focal weakness. No fevers, chills, or night sweats. No mention of weight loss, but he is somewhat cachectic. HEAD AND NECK: No head pain or neck pain. No thrush or dysphagia. CARDIAC: no chest pain, pulmonary - the patient hasno hemoptysis or secretions on pulmonary review of systems, also no pressors. GASTROINTESTINAL: No nausea, vomiting, or diarrhea. GENITOURINARY: He has no Canas. PULMONARY: no secretions or congestion . SKIN: No rash or itching. He has a left foot wound. EXTREMITIES: He has left foot pain. NEUROLOGIC: No seizures. He has generalized weakness. PHYSICAL EXAMINATION: VITAL SIGNS: Temperature is 97.2, pulse rate 77, respiratory rate 17, blood pressure 109/59, and saturation 100%. GENERAL: Alert and responsive, no distress. He seems to be alert and oriented. He seems cachectic. HEAD AND NECK: Oral exam, no thrush. Eye exam, no icterus. Normocephalic. No facial droop. No neck stiffness. Neck is supple, no jvd HEART: Regular. No gallop or murmur. ABDOMEN: Soft. Positive bowel sounds. Nontender. LUNGS: Clear bilaterally. No rhonchi or rales. SKIN: No rash. MUSCULOSKELETAL: Left leg with septic arthritis. Right leg is right BKA. Left leg without cellulitis. PERIPHERAL VASCULAR: He has left foot necrotic wound at base of the left foot and also in the medial aspect of the foot. He has an infected wound and ulcer. GENITOURINARY: No Canas. No CVA tenderness. LINES: Line sites without phlebitis. NEUROLOGIC: Intact. Nonfocal. Alert and oriented x3. LABORATORY AND DIAGNOSTIC DATA: White count 21.9 and hemoglobin 10.5. The patient's creatinine is 1.0. LFTs noted. His labs, really cannot get a wound culture since the wound is a necrotic wound. There is no obvious drainage noted. Imaging studies, x-rays showed no bony trauma, showed possible foreign body of the left foot. Chest x-ray was negative no acute disease. ASSESSMENT AND PLAN: 1. The patient has left foot wound and ulcer infection with possible underlying osteomyelitis with history of diabetes. Continue vancomycin, cefepime, and Flagyl for polymicrobial coverage including methicillin-resistant Staphylococcus aureus and gram-negatives. The patient has possible sepsis with elevated white count. Continue vancomycin, cefepime, and Flagyl. The patient will be seen by Surgery for possible debridement, may need eventual amputation. Check followup labs. Check blood cultures. Also get an MRI to evaluate for osteo of the left foot. Continue vancomycin, cefepime, and Flagyl for treatment for infected wound and ulcer pending MRI results. 2. Human immunodeficiency virus and acquired immunodeficiency syndrome. Check CD4 count. Previous CD4 when I reviewed the records is over 300, but we will recheck CD4, if the patient needs prophylaxis. With regards to antiretroviral therapy, he is by his choice off for least a year, he says. This will be readdressed as an outpatient. 3. History of chronic obstructive pulmonary disease. 4. History of diabetes. 5. Hypertension. 6. Blood sugar and blood pressure treatment per primary. 7. Anemia. 8. Peripheral vascular disease. 9. Right below-knee amputation. 10. History of nicotine dependency and chronic obstructive pulmonary disease. 11. Possible hyperlipidemia. 12. Bipolar disease. 13. Past medical history as noted. 14. Allergy to pollens. 15. Family history noncontributory. 16. Social history positive for smoking. 17. MAR was noted. 18. Case discussed with RN. 19. Case discussed with Dr. Almonte. 20. Surgery to follow up. 21. Continue treatment per primary consultants. 22. Notes and records were noted. 23. Orders were entered. Suraj Perea M.D. DR: CHANO JOB#: [id number] CC: JACEY
[2017-08-11 04:00] VITALS: BP 92/52
[2017-08-11 06:02] LABS: BASOPHILS % (AUTO) 0.2 % (0.0-2.0); EOSINOPHILS % (AUTO) 0.6 % (0.0-3.0); HEMATOCRIT 26.6 % (42.0-52.0); HEMOGLOBIN 8.9 G/DL (14.2-18.0); LYMPHOCYTES % (AUTO) 13.7 % (20.0-45.0); MEAN CORPUSCULAR VOLUME 89 FL (80-99); MONOCYTES % (AUTO) 5.6 % (1.0-10.0); NEUTROPHILS % (AUTO) 79.9 % (45.0-75.0); PLATELET COUNT 330 K/UL (150-450); RED CELL DISTRIBUTION WIDTH 14.1 % (11.6-14.8); WHITE BLOOD COUNT 13.6 K/UL (4.8-10.8)
[2017-08-11] MEDS: Vancomycin 1gm/D5W 275ml IVPB SCH ×4 (06:03→17:51)
[2017-08-11] MEDS: NovoLOG Insulin Flexpen SUBQ SCH ×4 (06:05→21:00)
[2017-08-11 06:31] LABS: ANION GAP 7 mmol/L (5-15); BLOOD UREA NITROGEN 13 mg/dL (7-18); CALCIUM 8.1 MG/DL (8.5-10.1); CARBON DIOXIDE 27 MMOL/L (21-32); CHLORIDE 104 MMOL/L (98-107); CREATININE 0.7 MG/DL (0.55-1.30); POTASSIUM 3.1 MMOL/L (3.5-5.1); SODIUM 137 MMOL/L (136-145)
[2017-08-11 08:00] VITALS: BP 108/50
[2017-08-11] MEDS: Heparin 5000 units/ml inj SUBQ SCH ×2 (08:38→21:00)
[2017-08-11] MEDS: Docusate 100mg cap ORAL SCH ×2 (08:38→21:00)
[2017-08-11] MEDS: Levemir Flexpen SUBQ SCH (08:41)
[2017-08-11 08:58] LABS: % IRON SATURATION 10 % (15-50); IRON 12 ug/dL (50-175); TOTAL IRON BINDING CAPACITY 122 ug/dL (250-450)
[2017-08-11 09:17] LABS: FERRITIN 112 NG/ML (8-388)
[2017-08-11] MEDS: Cefepime HCl 2 GM in NS 110 ML IV SCH ×2 (09:46→21:00)
--- NOTE | 2017-08-11 11:55 | General Surgery Progress Note ---
General Surgery-Progress Note Subjective Symptoms: improved Additional Comments denies pain today. states he feels okay. keeps asking me to call the kitchen and order his food for him. states he wants more food and they wont take his order. mainly talks about food during discussion. informed of foreign body in foot. denies trauma. explained to him possible need to have it removed. Objective Last 24 Hour Vital Signs Date Time Temp Pulse Resp B/P (MAP) Pulse Ox O2 Delivery O2 Flow Rate FiO2 08/11/17 08:00 78 08/11/17 08:00 97.0 75 18 108/50 100 Room Air 08/11/17 04:00 97.6 78 20 92/52 100 Room Air 08/11/17 04:00 78 08/11/17 00:00 97.6 78 20 93/59 100 Room Air 08/10/17 20:00 71 08/10/17 20:00 97.9 81 20 117/69 100 Room Air 08/10/17 19:43 97.7 08/10/17 16:00 74 08/10/17 16:00 97.7 73 20 109/55 100 Room Air 08/10/17 12:00 71 I&O Intake and Output 08/10/17 08/11/17 19:00 07:00 Intake Total 1795.000 ml 1493.708 ml Output Total 400 ml Balance 1395.000 ml 1493.708 ml Intake Oral 860 ml 300 ml IV Total 935.000 ml 1193.708 ml Output Urine Total 400 ml # Voids 1 # Bowel Movements 4 1 Cardiovascular: RSR Respiratory: clear Abdomen: soft, flat, non-tender, present bowel sounds Extremities: no edema, other - right bka. 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 cannot identify area of foreign body on exam as based on plain films. ulcers and skin breakdown noted. Laboratory Tests Test 08/10/17 16:20 08/11/17 05:00 08/11/17 05:15 White Blood Count Pending 13.6 K/UL (4.8-10.8) H Lymphocytes Pending Erythrocyte Sedimentation Rate 87 MM/HR (0-20) H Percent CD3 Cells Pending Absolute CD3 Count Pending Percent CD4 Cells Pending Absolute CD4 Count Pending T-Lymphocyte CD4/CD8 Ratio Pending Percent CD8 Cells Pending Absolute CD8 Count Pending Iron Level 12 ug/dL (50-175) L Total Iron Binding Capacity 122 ug/dL (250-450) L Percent Iron Saturation 10 % (15-50) L Unsaturated Iron Binding 110 ug/dL (112-346) L Ferritin 112 NG/ML (8-388) Red Blood Count 3.00 M/UL (4.70-6.10) L Hemoglobin 8.9 G/DL (14.2-18.0) L Hematocrit 26.6 % (42.0-52.0) L Mean Corpuscular Volume 89 FL (80-99) Mean Corpuscular Hemoglobin 29.7 PG (27.0-31.0) Mean Corpuscular Hemoglobin Concent 33.5 G/DL (32.0-36.0) Red Cell Distribution Width 14.1 % (11.6-14.8) Platelet Count 330 K/UL (150-450) Mean Platelet Volume 6.5 FL (6.5-10.1) Neutrophils (%) (Auto) 79.9 % (45.0-75.0) H Lymphocytes (%) (Auto) 13.7 % (20.0-45.0) L Monocytes (%) (Auto) 5.6 % (1.0-10.0) Eosinophils (%) (Auto) 0.6 % (0.0-3.0) Basophils (%) (Auto) 0.2 % (0.0-2.0) Sodium Level 137 MMOL/L (136-145) Potassium Level 3.1 MMOL/L (3.5-5.1) L Chloride Level 104 MMOL/L (98-107) Carbon Dioxide Level 27 MMOL/L (21-32) Anion Gap 7 mmol/L (5-15) Blood Urea Nitrogen 13 mg/dL (7-18) Creatinine 0.7 MG/DL (0.55-1.30) Estimat Glomerular Filtration Rate > 60 mL/min (>60) Glucose Level 142 MG/DL (74-106) #H Calcium Level 8.1 MG/DL (8.5-10.1) L Magnesium Level 1.7 MG/DL (1.8-2.4) L Plan Problems: (1) Foreign body in left foot with infection Assessment & Plan: 52M with foreign body in left plantar mid foot, multiple ulcers, poor hygiene, and DM neuropathy. leukocytosis of 21k initially but improving now. 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 cannot identify are of trauma /foreign body as based on plain films. has ulcers and skin breakdown on foot but no signs of active infection -plain films reviewed. foreign body noted and needs to be removed. unfortunately hard to see but given history cannot remain there for high risk of infection. -Await MRI for better roadmap to finding foreign body given on exam not easily evident. will follow with recs. thank you for this consultation. Romero Mike Aug 11, 2017 11:55
[2017-08-11 12:00] VITALS: BP 114/56
[2017-08-11 15:50] VITALS: BP 107/59
--- NOTE | 2017-08-11 18:10 | Diagnostic Imaging Report ---
Indication: Ulcers, assess for osteomyelitis Technique: MRI of the left foot was obtained utilizing a multisequence/multiplanar technique. Following acquisition of 3 plane localizer the following sequences were obtained: Axial, coronal and sagittal T1 and STIR images without IV gadolinium. Comparison: Correlation made to left foot radiographs 08/10/2017 Findings: There is no evidence of acute fracture. Anatomic alignment preserved. There is mild loss of normal T1 signal hyperintensity within the hallux sesamoids. There is no corresponding STIR signal hyperintensity. These findings are likely related to sclerosis, as seen on the prior radiograph. Otherwise, bone marrow signal is within normal limits. No evidence to suggest osteomyelitis. There appears to be a soft tissue irregularity underlying the head of the second metatarsal possibly reflecting area of ulceration. Some mild STIR signal hyperintensity in this region is related to edema. There is no well-defined fluid collection or abscess. There is a 10 mm linear focus with adjacent susceptibility artifact in the plantar soft tissues of the forefoot consistent with the metallic foreign body noted on prior foot radiographs. This is remote from the area of ulceration at the level of the metatarsal heads. No surrounding fluid collection or abscess. Please note that radiographs provide more reliable estimation of actual size of the foreign body. IMPRESSION: Skin irregularity underlying the second metatarsal head likely representing ulcer. Mild subcutaneous edema in this area. Correlate clinically to exclude cellulitis. No evidence of osteomyelitis or abscess formation. Metallic foreign body in the plantar soft tissues of the forefoot, as seen on prior radiographs. No surrounding fluid collection or abscess at this time.
--- NOTE | 2017-08-11 19:30 | General Progress Note ---
Assessment/Plan Problem List: (1) Multiple ulcers on plantar aspect of L foot (2) Foreign body in left foot with infection ICD Codes: S90.852A - Superficial foreign body, left foot, initial encounter; L08.9 - Local infection of the skin and subcutaneous tissue, unspecified SNOMED: 81612898 Qualifiers: Qualified Codes: S90.852A - Superficial foreign body, left foot, initial encounter; L08.9 - Local infection of the skin and subcutaneous tissue, unspecified (3) Sepsis ICD Codes: A41.9 - Sepsis, unspecified organism SNOMED: 16982057 (4) Medical non-compliance ICD Codes: Z91.19 - Patient's noncompliance with other medical treatment and regimen SNOMED: 834411616 (5) Uncontrolled diabetes mellitus ICD Codes: E11.9 - Type 2 diabetes mellitus without complications SNOMED: 589426772 (6) HIV (human immunodeficiency virus infection) ICD Codes: B20 - Human immunodeficiency virus [HIV] disease SNOMED: 78120732 (7) Hx of right BKA ICD Codes: Z89.511 - Acquired absence of right leg below knee SNOMED: 248910578, 974314947, 202633380 (8) tobacco abuse (9) Bipolar disorder with depression ICD Codes: F31.30 - Bipolar disorder, current episode depressed, mild or moderate severity, unspecified SNOMED: 94243634 (10) Hyponatremia ICD Codes: E87.1 - Hypo-osmolality and hyponatremia SNOMED: 10807553 (11) Hyperglycemia ICD Codes: R73.9 - Hyperglycemia, unspecified SNOMED: 14633147 Status: stable Assessment/Plan ID and surgery consulted Empiric vanco and cefepime for now F/u cultures Trend CBC MRI L foot ordered to eval for osteo --> shows needle in foot, but no e/o steo. 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 Disposition: Once the patient is stable to leave the hospital, I anticipate the patient will likely be discharged to the following environment: recup fpc + HH vs SNF Discussed with patient/family, nursing staff, SW/CM, ID, surgery regarding clinical status, treatment course, and disposition planning. D/w ID re abx. D/w surgery re MRI resutls Time of note may not reflect time of encounter. Subjective Date patient seen: Aug 11, 2017 Time patient seen: 12:00 ROS Limited/Unobtainable: No Constitutional: Reports: weakness HEENT: Reports: no symptoms Cardiovascular: Reports: no symptoms Respiratory: Reports: no symptoms Gastrointestinal/Abdominal: Reports: no symptoms Genitourinary: Reports: no symptoms Neurologic/Psychiatric: Reports: no symptoms Endocrine: Reports: no symptoms Hematologic/Lymphatic: Reports: no symptoms Allergies: Uncoded Allergies: POLLEN (Allergy, Unknown, 07/23/16) All Systems: reviewed and negative except above Subjective No acute o/n events MRI shows needle in foot. Awaiting surgery rec's WBC downtrending Afebrile Pt states pain controlled. Denies f/c, n/v, d/c, chest pain, SOB Objective Last 24 Hour Vital Signs Date Time Temp Pulse Resp B/P (MAP) Pulse Ox O2 Delivery O2 Flow Rate FiO2 08/11/17 16:00 70 08/11/17 15:50 97.9 69 20 107/59 97 Room Air 08/11/17 12:00 97.5 61 18 114/56 99 Room Air 08/11/17 12:00 64 08/11/17 08:00 78 08/11/17 08:00 97.0 75 18 108/50 100 Room Air 08/11/17 04:00 97.6 78 20 92/52 100 Room Air 08/11/17 04:00 78 08/11/17 00:00 97.6 78 20 93/59 100 Room Air 08/10/17 20:00 71 08/10/17 20:00 97.9 81 20 117/69 100 Room Air 08/10/17 19:43 97.7 Intake and Output 08/10/17 08/11/17 19:00 07:00 Intake Total 1795.000 ml 1493.708 ml Output Total 400 ml Balance 1395.000 ml 1493.708 ml Intake Oral 860 ml 300 ml IV Total 935.000 ml 1193.708 ml Output Urine Total 400 ml # Voids 1 # Bowel Movements 4 1 Laboratory Tests 08/11/17 05:00: Iron Level 12L, Total Iron Binding Capacity 122L, Percent Iron Saturation 10L, Unsaturated Iron Binding 110L, Ferritin 112 08/11/17 05:15: White Blood Count 13.6H, Red Blood Count 3.00L, Hemoglobin 8.9L, Hematocrit 26.6L, Mean Corpuscular Volume 89, Mean Corpuscular Hemoglobin 29.7, Mean Corpuscular Hemoglobin Concent 33.5, Red Cell Distribution Width 14.1, Platelet Count 330, Mean Platelet Volume 6.5, Neutrophils (%) (Auto) 79.9H, Lymphocytes ( %) (Auto) 13.7L, Monocytes (%) (Auto) 5.6, Eosinophils (%) (Auto) 0.6, Basophils (%) (Auto) 0.2, Sodium Level 137, Potassium Level 3.1L, Chloride Level 104, Carbon Dioxide Level 27, Anion Gap 7, Blood Urea Nitrogen 13, Creatinine 0.7, Estimat Glomerular Filtration Rate > 60, Glucose Level 142#H, Calcium Level 8.1L, Magnesium Level 1.7L 08/11/17 16:35: Vancomycin Level Trough 8.2 Height (Feet): 5 Height (Inches): 2.00 Weight (Pounds): 110 Objective General: alert, cooperative, no distress, appears stated age Head: normocephalic, without obvious abnormality, atraumatic Eyes: conjunctivae/corneas clear. PERRL, EOM's intact Throat: lips, mucosa, and tongue normal. MMM Neck: supple, symmetrical, trachea midline, and no JVD Lungs: clear to auscultation bilaterally Heart: regular rate and rhythm, S1, S2 normal, no murmur, click, rub or gallop Abdomen: soft, non-tender, non-distended, bowel sounds normal; no masses or organomegaly Extremities: +R BKA c/d/i, +multiple ulcers on plantar aspect--no drainage noted Neurologic: grossly normal, no focal deficits Gage Hermosillo M.D. Aug 11, 2017 19:30
[2017-08-11 20:00] VITALS: BP 125/69
[2017-08-11] MEDS: NS w/KCl 20mEq 1,000 ML IV SCH (20:00)
[2017-08-12] VITALS: BP 112/62
[2017-08-12] MEDS: Vancomycin 1gm/D5W 275ml IVPB SCH ×4 (02:40→11:10)
[2017-08-12 04:00] VITALS: BP 121/70
[2017-08-12] MEDS: NovoLOG Insulin Flexpen SUBQ SCH ×4 (06:17→20:38)
--- NOTE | 2017-08-12 06:21 | General Progress Note ---
Assessment/Plan Problem List: (1) Bipolar disorder ICD Codes: F31.9 - Bipolar disorder, unspecified SNOMED: 61432598 (2) Blood glucose elevated ICD Codes: R73.9 - Hyperglycemia, unspecified SNOMED: 25683545 (3) HIV disease ICD Codes: B20 - HIV disease SNOMED: 21199978 (4) Uncontrolled diabetes mellitus ICD Codes: E11.9 - Type 2 diabetes mellitus without complications SNOMED: 946382127 (5) Hx of BKA ICD Codes: Z89.519 - Acquired absence of unspecified leg below knee SNOMED: 010499495, 072692922 (6) Foreign body in left foot ICD Codes: S90.852A - Superficial foreign body, left foot, initial encounter SNOMED: 264011714 Assessment/Plan add Starlix 60 mg ac tid add Januvia 100 mg daily continue Levemir 20 units daily continue NISS Subjective Allergies: Uncoded Allergies: POLLEN (Allergy, Unknown, 07/23/16) All Systems: reviewed and negative except above Subjective events noted - interval notes reviewed Objective Last 24 Hour Vital Signs Date Time Temp Pulse Resp B/P (MAP) Pulse Ox O2 Delivery O2 Flow Rate FiO2 08/12/17 04:00 67 08/12/17 04:00 98.0 75 18 121/70 95 Room Air 08/12/17 00:00 97.5 75 16 112/62 98 Room Air 08/12/17 00:00 75 08/11/17 20:00 72 08/11/17 20:00 98.1 74 15 125/69 97 08/11/17 16:00 70 08/11/17 15:50 97.9 69 20 107/59 97 Room Air 08/11/17 12:00 97.5 61 18 114/56 99 Room Air 08/11/17 12:00 64 08/11/17 08:00 78 08/11/17 08:00 97.0 75 18 108/50 100 Room Air Intake and Output 08/11/17 08/12/17 19:00 07:00 Intake Total 2281.292 ml 120 ml Output Total 780 ml Balance 1501.292 ml 120 ml Intake Oral 1130 ml 120 ml IV Total 1151.292 ml Output Urine Total 780 ml # Bowel Movements 3 Laboratory Tests 08/11/17 16:35: Vancomycin Level Trough 8.2 Height (Feet): 5 Height (Inches): 2.00 Weight (Pounds): 110 General Appearance: no apparent distress Neck: normal alignment Cardiovascular: normal rate Respiratory/Chest: lungs clear Abdomen: normal bowel sounds Extremities: other - right BKA Objective Current Medications Medications (Trade) Dose Ordered Sig/Antoni Route PRN Reason Start Time Stop Time Status Last Admin Dose Admin Acetaminophen (Tylenol) 650 mg Q4H PRN ORAL Mild Pain (Pain Scale 1-3) 08/10/17 08:30 09/09/17 08:29 08/10/17 18:44 Acetaminophen (Tylenol) 650 mg Q4H PRN ORAL fever (Temp>100.5F) 08/10/17 08:30 09/09/17 08:29 Atorvastatin Calcium (Lipitor) 20 mg BEDTIME ORAL 08/10/17 21:00 09/09/17 20:59 08/11/17 21:00 Bisacodyl (Dulcolax) 10 mg DAILYPRN PRN RECTAL Constipation 08/10/17 09:00 09/09/17 08:29 Cefepime HCl 2 gm/ Sodium Chloride 110 ml @ 220 mls/hr EVERY 12 HOURS IV 08/10/17 21:00 08/17/17 20:59 08/11/17 21:00 Dextrose (Dextrose 50%) STAT PRN IV Hypoglycemia 08/10/17 08:45 09/09/17 08:44 Docusate Sodium (Colace) 100 mg EVERY 12 HOURS ORAL 08/10/17 09:00 09/09/17 08:59 08/11/17 21:00 Escitalopram Oxalate (Lexapro) 10 mg DAILY ORAL 08/10/17 09:00 09/09/17 08:59 08/11/17 08:38 Gabapentin (Neurontin) 300 mg THREE TIMES A DAY ORAL 08/10/17 10:00 09/09/17 09:59 08/11/17 17:52 Heparin Sodium (Porcine) (Heparin 5000 units/ml) 5,000 units EVERY 12 HOURS SUBQ 08/10/17 09:00 09/09/17 08:59 08/11/17 21:00 Insulin Aspart (NovoLOG) BEFORE MEALS AND HS SUBQ 08/10/17 11:30 09/09/17 11:29 08/11/17 21:00 Insulin Detemir (Levemir) 20 units DAILY SUBQ 08/10/17 10:00 09/09/17 09:59 08/11/17 08:41 Metronidazole 100 ml @ 100 mls/hr Q8HR IVPB 08/10/17 22:00 08/17/17 21:59 08/12/17 05:45 Nicotine (Nicoderm) 1 patch Q24H TDERMAL 08/11/17 12:00 09/10/17 11:59 08/11/17 13:46 Ondansetron HCl (Zofran) 4 mg Q6H PRN IVP Nausea & Vomiting 08/10/17 08:30 09/09/17 08:29 Polyethylene Glycol (Miralax) 17 gm DAILYPRN PRN ORAL Constipation 08/10/17 08:30 09/09/17 08:29 Risperidone (RisperDAL) 4 mg QHS ORAL 08/10/17 21:00 09/09/17 20:59 08/11/17 21:00 Sodium Chloride 1,000 ml @ 75 mls/hr [id number] IV 08/11/17 20:00 09/10/17 19:59 08/11/17 20:00 Tramadol HCl (Ultram) 50 mg Q4H PRN ORAL pain 4-10 08/10/17 08:30 08/17/17 08:29 Vancomycin HCl (Vanco rx to dose) 1 ea DAILY PRN MISC Per rx protocol 08/10/17 08:45 09/09/17 08:44 Vancomycin HCl 1 gm/Dextrose 275 ml @ 183.708 mls/hr Q8HR@0200,1000,1800 IVPB 08/12/17 02:00 08/17/17 01:59 08/12/17 02:40 Item Value Date Time Bedside Blood Glucose 297 mg/dl H 08/11/17 2100 Bedside Blood Glucose 127 mg/dl H 08/11/17 1649 Bedside Blood Glucose 188 mg/dl H 08/11/17 1124 Bedside Blood Glucose 210 mg/dl H 08/11/17 0841 Bedside Blood Glucose 177 mg/dl H 08/11/17 0605 LEONELA DIAMOND Aug 12, 2017 06:20
[2017-08-12 08:00] VITALS: BP 139/73
[2017-08-12] MEDS: Levemir Flexpen SUBQ SCH (09:00)
[2017-08-12] MEDS: Heparin 5000 units/ml inj SUBQ SCH ×2 (09:00→20:37)
[2017-08-12] MEDS: Docusate 100mg cap ORAL SCH ×2 (09:01→20:32)
[2017-08-12] MEDS: Nateglinide 60mg tab ORAL SCH ×3 (09:01→17:17)
[2017-08-12] MEDS: NS w/KCl 20mEq 1,000 ML IV SCH (09:02)
[2017-08-12] MEDS: Cefepime HCl 2 GM in NS 110 ML IV SCH ×2 (10:22→20:32)
[2017-08-12 11:50] LABS: BASOPHILS % (AUTO) 0.5 % (0.0-2.0); EOSINOPHILS % (AUTO) 0.3 % (0.0-3.0); HEMATOCRIT 29.9 % (42.0-52.0); HEMOGLOBIN 10.1 G/DL (14.2-18.0); LYMPHOCYTES % (AUTO) 13.6 % (20.0-45.0); MEAN CORPUSCULAR VOLUME 90 FL (80-99); MONOCYTES % (AUTO) 4.7 % (1.0-10.0); NEUTROPHILS % (AUTO) 80.9 % (45.0-75.0); PLATELET COUNT 337 K/UL (150-450); RED BLOOD COUNT 3.32 M/UL (4.70-6.10); RED CELL DISTRIBUTION WIDTH 14.3 % (11.6-14.8); WHITE BLOOD COUNT 8.4 K/UL (4.8-10.8)
[2017-08-12 12:00] VITALS: BP 135/66
[2017-08-12 12:02] LABS: ANION GAP 8 mmol/L (5-15); BLOOD UREA NITROGEN 16 mg/dL (7-18); CALCIUM 8.9 MG/DL (8.5-10.1); CARBON DIOXIDE 28 MMOL/L (21-32); CHLORIDE 98 MMOL/L (98-107); CREATININE 0.9 MG/DL (0.55-1.30); PHOSPHORUS 2.8 MG/DL (2.5-4.9); POTASSIUM 3.9 MMOL/L (3.5-5.1); SODIUM 134 MMOL/L (136-145)
--- NOTE | 2017-08-12 13:34 | Wound Care Consultation ---
Wound Assessment Wound Assessment #1: Wound Number: 1 Wound Present on Admission: Yes New Wound: No Status Change of Wound: No Wound Location Body Site Modif: mid Wound Location Body Site: other - Sacrococcygeal area extending to left and right buttocks Wound Type: pressure ulcer Chay Test: Does not Chay Pressure Ulcer Stage: Deep Tissue Injury Wound Thickness: Full Thickness Wound Length: 13.0 Wound Width: 10.0 Wound Depth: utd Percent of Wound Purple/Maroon: 100 Wound Drainage Amount: None Wound Drainage Odor: None/Absent Tissue Surrounding Wound: Erythemic Wound General Appearance: Reddened - maroon/purple Wound Assessment #2: Wound Number: 2 Wound Present on Admission: Yes New Wound: No Status Change of Wound: No Wound Location Body Site Modif: right Wound Location Body Site: ischial tuberosity Wound Type: pressure ulcer Chay Test: Does not Chay Pressure Ulcer Stage: III Wound Thickness: Full Thickness Wound Length: 1.5 Wound Width: 1.5 Wound Depth: 0.2 Percent of Wound [place]/Red: 80 Percent of Wound Bed Yellow/Wh: 20 Wound Drainage Description: Serosanguineous Wound Drainage Amount: Scant Wound Drainage Odor: None/Absent Tissue Surrounding Wound: Erythemic Wound General Appearance: Reddened - yellow, Draining Wound Assessment #3: Wound Number: 3 Wound Present on Admission: Yes New Wound: No Status Change of Wound: No Wound Location Body Site Modif: left Wound Location Body Site: ischial tuberosity Wound Type: pressure ulcer Chay Test: Does not Chay Pressure Ulcer Stage: Deep Tissue Injury Wound Thickness: Full Thickness Wound Length: 2.0 Wound Width: 2.0 Wound Depth: utd Percent of Wound Purple/Maroon: 100 Wound Drainage Amount: None Wound Drainage Odor: None/Absent Tissue Surrounding Wound: Erythemic Wound General Appearance: Reddened - maroon Wound Comment #1 Sacrococcygeal DTI extending to left and right buttocks #2 Right ischial tuberosity stage III pressure ulcer #3 Left ischial tuberosity DTI pressure ulcer #4 Left foot open scattered wound. Etiology unknown. Pt is under DR Romero Mike for further evaluation. Please follow MD's order Recommendation -Local wound care per protocol -Keep clean and dry -Turn and reposition -Offload both left heel -Heel protector on left heel -Optimize nutrition -Low air loss mattress -Assess and f/u accordingly for any changes DICK HAY RN Aug 12, 2017 13:34
[2017-08-12] MEDS: metroNIDAZOLE 500mg tab ORAL SCH ×2 (14:04→22:15)
--- NOTE | 2017-08-12 14:20 | Infectious Diseases Prog Note ---
Assessment/Plan Assessment/Plan ASSESSMENT AND PLAN: 1. left foot infected wound, sepsis, leukocytosis - clinically improved, leukocytosis resolved - continue vancomycin, cefepime and flagyl - day # 3 abx - debridement per surgery - d/w Dr. Miller and surgery - wound care per protocol 2. hiv, hx aids, off anti-retroviral therapy - CD4 - 508 - no need for prophylaxis - f/u with HIV MD as outpatient for evaluation for future hiv tx 3. History of chronic obstructive pulmonary disease. 4. History of diabetes. 5. Hypertension. 6. Blood sugar and blood pressure treatment per primary. 7. Anemia. 8. Peripheral vascular disease. 9. Right below-knee amputation. 10. History of nicotine dependency and chronic obstructive pulmonary disease. 11. Possible hyperlipidemia. 12. Bipolar disease. 13. Past medical history as noted. 14. Allergy to pollens. 15. Family history noncontributory. 16. Social history positive for smoking. 17. MAR was noted. 18. Case discussed with RN. 19. Case discussed with Dr. Almonte. 20. Surgery to follow up. 21. Continue treatment per primary consultants. 22. Notes and records were noted. 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 Subjective Constitutional: Denies: fever HEENT: Denies: congestion Respiratory: Denies: shortness of breath Cardiovascular: Denies: chest pain Gastrointestinal/Abdominal: Denies: nausea, vomiting, diarrhea Genitourinary: Reports: other - no salazar, Denies: dysuria, hematuria Neurologic: Denies: headache, numbness Psychiatric: Denies: depression Skin: Denies: rash Hematologic: Denies: bleeding Musculoskeletal: Denies: pain Allergies: Uncoded Allergies: POLLEN (Allergy, Unknown, 07/23/16) Objective Vital Signs Last 24 Hour Vital Signs Date Time Temp Pulse Resp B/P (MAP) Pulse Ox O2 Delivery O2 Flow Rate FiO2 08/12/17 12:00 98.1 73 19 135/66 99 08/12/17 08:00 98.7 84 18 139/73 97 08/12/17 04:00 67 08/12/17 04:00 98.0 75 18 121/70 95 Room Air 08/12/17 00:00 97.5 75 16 112/62 98 Room Air 08/12/17 00:00 75 08/11/17 20:00 72 08/11/17 20:00 98.1 74 15 125/69 97 08/11/17 16:00 70 08/11/17 15:50 97.9 69 20 107/59 97 Room Air Height (Feet): 5 Height (Inches): 2.00 Weight (Pounds): 109 General Appearance: no acute distress HEENT: normocephalic, atraumatic, anicteric, mucous membranes moist Respiratory/Chest: lungs clear, normal breath sounds, no respiratory distress, no accessory muscle use Cardiovascular: normal rate, regular rhythm, no gallop/murmur, no JVD Abdomen: normal bowel sounds, soft, non tender, no organomegaly, non distended Genitourinary: other - no foely, no cva pain Extremities: other - right bka, left foot wound covered Skin: no rash 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 Mild subcutaneous edema in this area. Correlate clinically to exclude cellulitis. No evidence of osteomyelitis or abscess formation. Metallic foreign body in the plantar soft tissues of the forefoot, as seen on prior radiographs. No surrounding fluid collection or abscess at this time. Microbiology Date/Time Source Procedure Growth Status 08/10/17 16:20 Blood Blood Culture - Preliminary NO GROWTH AFTER 24 HOURS Resulted 08/10/17 16:00 Blood Blood Culture - Preliminary NO GROWTH AFTER 24 HOURS Resulted 08/10/17 21:00 Nasal Nares MRSA Culture - Final Staphylococcus Aureus - Mrsa Complete Laboratory Tests Test 08/11/17 16:35 08/12/17 11:05 Vancomycin Level Trough 8.2 ug/mL (5.0-12.0) White Blood Count 8.4 K/UL (4.8-10.8) Red Blood Count 3.32 M/UL (4.70-6.10) L Hemoglobin 10.1 G/DL (14.2-18.0) L Hematocrit 29.9 % (42.0-52.0) L Mean Corpuscular Volume 90 FL (80-99) Mean Corpuscular Hemoglobin 30.3 PG (27.0-31.0) Mean Corpuscular Hemoglobin Concent 33.6 G/DL (32.0-36.0) Red Cell Distribution Width 14.3 % (11.6-14.8) Platelet Count 337 K/UL (150-450) Mean Platelet Volume 6.5 FL (6.5-10.1) Neutrophils (%) (Auto) 80.9 % (45.0-75.0) H Lymphocytes (%) (Auto) 13.6 % (20.0-45.0) L Monocytes (%) (Auto) 4.7 % (1.0-10.0) Eosinophils (%) (Auto) 0.3 % (0.0-3.0) Basophils (%) (Auto) 0.5 % (0.0-2.0) Sodium Level 134 MMOL/L (136-145) L Potassium Level 3.9 MMOL/L (3.5-5.1) Chloride Level 98 MMOL/L (98-107) Carbon Dioxide Level 28 MMOL/L (21-32) Anion Gap 8 mmol/L (5-15) Blood Urea Nitrogen 16 mg/dL (7-18) Creatinine 0.9 MG/DL (0.55-1.30) Estimat Glomerular Filtration Rate > 60 mL/min (>60) Glucose Level 500 MG/DL (74-106) #H Calcium Level 8.9 MG/DL (8.5-10.1) Phosphorus Level 2.8 MG/DL (2.5-4.9) Magnesium Level 2.0 MG/DL (1.8-2.4) Current Medications Medications (Trade) Dose Ordered Sig/Antoni Route PRN Reason Start Time Stop Time Status Last Admin Dose Admin Acetaminophen (Tylenol) 650 mg Q4H PRN ORAL Mild Pain (Pain Scale 1-3) 08/10/17 08:30 09/09/17 08:29 08/10/17 18:44 Acetaminophen (Tylenol) 650 mg Q4H PRN ORAL fever (Temp>100.5F) 08/10/17 08:30 09/09/17 08:29 Atorvastatin Calcium (Lipitor) 20 mg BEDTIME ORAL 08/10/17 21:00 09/09/17 20:59 08/11/17 21:00 Bisacodyl (Dulcolax) 10 mg DAILYPRN PRN RECTAL Constipation 08/10/17 09:00 09/09/17 08:29 Cefepime HCl 2 gm/ Sodium Chloride 110 ml @ 220 mls/hr EVERY 12 HOURS IV 08/10/17 21:00 08/17/17 20:59 08/12/17 10:22 Dextrose (Dextrose 50%) STAT PRN IV Hypoglycemia 08/10/17 08:45 09/09/17 08:44 Docusate Sodium (Colace) 100 mg EVERY 12 HOURS ORAL 08/10/17 09:00 09/09/17 08:59 08/12/17 09:01 Escitalopram Oxalate (Lexapro) 10 mg DAILY ORAL 08/10/17 09:00 09/09/17 08:59 08/12/17 09:01 Gabapentin (Neurontin) 300 mg THREE TIMES A DAY ORAL 08/10/17 10:00 09/09/17 09:59 08/12/17 12:07 Heparin Sodium (Porcine) (Heparin 5000 units/ml) 5,000 units EVERY 12 HOURS SUBQ 08/10/17 09:00 09/09/17 08:59 08/11/17 21:00 Insulin Aspart (NovoLOG) BEFORE MEALS AND HS SUBQ 08/10/17 11:30 09/09/17 11:29 08/12/17 12:09 Insulin Detemir (Levemir) 20 units DAILY SUBQ 08/10/17 10:00 09/09/17 09:59 08/11/17 08:41 Meningococcal Polysaccharide Vacc (Menomune-A/C/Y/ W-135) 0.5 ml ONCE ONCE IM 08/12/17 13:45 08/12/17 13:46 UNV Metronidazole (Flagyl) 500 mg Q8HR ORAL 08/12/17 14:00 08/19/17 13:59 08/12/17 14:04 Nateglinide (Starlix) 60 mg TIAC ORAL 08/12/17 08:00 09/11/17 07:59 08/12/17 12:07 Nicotine (Nicoderm) 1 patch Q24H TDERMAL 08/11/17 12:00 09/10/17 11:59 08/12/17 12:08 Ondansetron HCl (Zofran) 4 mg Q6H PRN IVP Nausea & Vomiting 08/10/17 08:30 09/09/17 08:29 Polyethylene Glycol (Miralax) 17 gm DAILYPRN PRN ORAL Constipation 08/10/17 08:30 09/09/17 08:29 Risperidone (RisperDAL) 4 mg QHS ORAL 08/10/17 21:00 09/09/17 20:59 08/11/17 21:00 Sitagliptin Phosphate (Januvia) 100 mg ACBREAKFAST ORAL 08/12/17 08:00 09/11/17 07:59 08/12/17 09:01 Sodium Chloride 1,000 ml @ 75 mls/hr [id number] IV 08/11/17 20:00 09/10/17 19:59 08/12/17 09:02 Tramadol HCl (Ultram) 50 mg Q4H PRN ORAL pain 4-10 08/10/17 08:30 08/17/17 08:29 Vancomycin HCl (Vanco rx to dose) 1 ea DAILY PRN MISC Per rx protocol 08/10/17 08:45 09/09/17 08:44 Vancomycin HCl 1 gm/Dextrose 275 ml @ 183.708 mls/hr Q8HR@0200,1000,1800 IVPB 08/12/17 02:00 08/17/17 01:59 08/12/17 11:10 CAROL REBOLLEDO Aug 12, 2017 14:20
--- NOTE | 2017-08-12 14:28 | General Surgery Progress Note ---
General Surgery-Progress Note Subjective Symptoms: improved Additional Comments doing very well. no issues. no pain. comfortable. Objective Last 24 Hour Vital Signs Date Time Temp Pulse Resp B/P (MAP) Pulse Ox O2 Delivery O2 Flow Rate FiO2 08/12/17 12:00 98.1 73 19 135/66 99 08/12/17 08:00 98.7 84 18 139/73 97 08/12/17 04:00 67 08/12/17 04:00 98.0 75 18 121/70 95 Room Air 08/12/17 00:00 97.5 75 16 112/62 98 Room Air 08/12/17 00:00 75 08/11/17 20:00 72 08/11/17 20:00 98.1 74 15 125/69 97 08/11/17 16:00 70 08/11/17 15:50 97.9 69 20 107/59 97 Room Air I&O Intake and Output 08/11/17 08/12/17 19:00 07:00 Intake Total 2281.292 ml 1955 ml Output Total 780 ml 1000 ml Balance 1501.292 ml 955 ml Intake Oral 1130 ml 1370 ml IV Total 1151.292 ml 585 ml Output Urine Total 780 ml 1000 ml # Voids 2 # Bowel Movements 3 Cardiovascular: RSR Respiratory: clear Abdomen: soft, flat, non-tender Extremities: no edema, other - ulcers healing. no signs of active infection. cannot identifiy location of fb on exam Laboratory Tests Test 08/11/17 16:35 08/12/17 11:05 Vancomycin Level Trough 8.2 ug/mL (5.0-12.0) White Blood Count 8.4 K/UL (4.8-10.8) Red Blood Count 3.32 M/UL (4.70-6.10) L Hemoglobin 10.1 G/DL (14.2-18.0) L Hematocrit 29.9 % (42.0-52.0) L Mean Corpuscular Volume 90 FL (80-99) Mean Corpuscular Hemoglobin 30.3 PG (27.0-31.0) Mean Corpuscular Hemoglobin Concent 33.6 G/DL (32.0-36.0) Red Cell Distribution Width 14.3 % (11.6-14.8) Platelet Count 337 K/UL (150-450) Mean Platelet Volume 6.5 FL (6.5-10.1) Neutrophils (%) (Auto) 80.9 % (45.0-75.0) H Lymphocytes (%) (Auto) 13.6 % (20.0-45.0) L Monocytes (%) (Auto) 4.7 % (1.0-10.0) Eosinophils (%) (Auto) 0.3 % (0.0-3.0) Basophils (%) (Auto) 0.5 % (0.0-2.0) Sodium Level 134 MMOL/L (136-145) L Potassium Level 3.9 MMOL/L (3.5-5.1) Chloride Level 98 MMOL/L (98-107) Carbon Dioxide Level 28 MMOL/L (21-32) Anion Gap 8 mmol/L (5-15) Blood Urea Nitrogen 16 mg/dL (7-18) Creatinine 0.9 MG/DL (0.55-1.30) Estimat Glomerular Filtration Rate > 60 mL/min (>60) Glucose Level 500 MG/DL (74-106) #H Calcium Level 8.9 MG/DL (8.5-10.1) Phosphorus Level 2.8 MG/DL (2.5-4.9) Magnesium Level 2.0 MG/DL (1.8-2.4) Plan Problems: (1) Foreign body in left foot with infection Assessment & Plan: 52M with foreign body in left plantar mid foot, multiple ulcers, poor hygiene, and DM neuropathy. leukocytosis of 21k initially but improving now. poor compliance foot much high pressure cleaner after great nursing care. cannot identify are of trauma/ foreign body as based on plain films. has ulcers and skin breakdown on foot but no signs of active infection MRI reviewed. no signs of osteo or active infection. ulcers seen and on physical exam benign. Metallic foreign object seen and no surrounding issues. no edema, inflammation, or other problems. fortunately has imbedded itself without issues. deep inside foot. given findings not necessary for inpatient excision of foreign body. discussed with patient and offered to happily help with excision if desired but needs to be done as an outpatient. okay to d/c from surgical standpoint info given to patient for outpatient follow up if desired to remove foreign body or help with wound care of foot very non compliant and glucose out of control. hopefully will see PCP to maintain care. will follow with recs. thank you for this consultation. Romero Mike Aug 12, 2017 14:28
[2017-08-12] MEDS ORDERED: Meningococcal Polysacc Vaccine Inj IM ONE (15:30)
[2017-08-12 16:00] VITALS: BP 109/57
[2017-08-12 20:00] VITALS: BP 130/67
[2017-08-12] MEDS: Vancomycin 750mg/NS 250ml IVPB SCH (22:41)
[2017-08-13] VITALS: BP 128/64
[2017-08-13] MEDS: NS w/KCl 20mEq 1,000 ML IV SCH ×2 (01:02→11:06)
[2017-08-13 04:00] VITALS: BP 138/79
--- NOTE | 2017-08-13 05:58 | General Progress Note ---
Assessment/Plan Problem List: (1) L 2nd metatarsal head ulcer (2) Foreign body in left foot with infection ICD Codes: S90.852A - Superficial foreign body, left foot, initial encounter; L08.9 - Local infection of the skin and subcutaneous tissue, unspecified SNOMED: 13964897 Qualifiers: Qualified Codes: S90.852A - Superficial foreign body, left foot, initial encounter; L08.9 - Local infection of the skin and subcutaneous tissue, unspecified (3) Sepsis ICD Codes: A41.9 - Sepsis, unspecified organism SNOMED: 14967730 (4) Medical non-compliance ICD Codes: Z91.19 - Patient's noncompliance with other medical treatment and regimen SNOMED: 443989889 (5) Uncontrolled diabetes mellitus ICD Codes: E11.9 - Type 2 diabetes mellitus without complications SNOMED: 212441343 (6) HIV (human immunodeficiency virus infection) ICD Codes: B20 - Human immunodeficiency virus [HIV] disease SNOMED: 64915209 (7) Hx of right BKA ICD Codes: Z89.511 - Acquired absence of right leg below knee SNOMED: 257849080, 247057522, 939993397 (8) tobacco abuse (9) Bipolar disorder with depression ICD Codes: F31.30 - Bipolar disorder, current episode depressed, mild or moderate severity, unspecified SNOMED: 69088254 (10) Hyponatremia ICD Codes: E87.1 - Hypo-osmolality and hyponatremia SNOMED: 55455909 (11) Hyperglycemia ICD Codes: R73.9 - Hyperglycemia, unspecified SNOMED: 86068927 Status: stable Assessment/Plan ID and surgery consulted Empiric vanco and cefepime + flagyl for now F/u cultures Trend CBC MRI L foot ordered to eval for osteo --> shows needle in foot, R 2nd metatarsal head ulcer, but no e/o abscess or osteo. D/w surgery who prefers to avoid removal given concern for creating large wound. 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 CM consulted DVT Prophylaxis: SCD, HSQ Code Status: Full Hospital Classification Declaration: Based on this initial evaluation, and depending on the patient's clinical course, I anticipate that this patient will require hospitalization for 1-2 days for L foot ulcers w/ infection, possible foreign body in L foot, and close respiratory/hemodynamic monitoring. Disposition: Once the patient is stable to leave the hospital, I anticipate the patient will likely be discharged to the following environment: SNF Discussed with patient/family, nursing staff, SW/CM, ID, surgery regarding clinical status, treatment course, and disposition planning. D/w ID re abx. D/w surgery re MRI results Time of note may not reflect time of encounter. Subjective Date patient seen: Aug 12, 2017 Time patient seen: 11:00 ROS Limited/Unobtainable: No Constitutional: Reports: weakness HEENT: Reports: no symptoms Cardiovascular: Reports: no symptoms Respiratory: Reports: no symptoms Gastrointestinal/Abdominal: Reports: no symptoms Genitourinary: Reports: no symptoms Neurologic/Psychiatric: Reports: no symptoms Endocrine: Reports: no symptoms Hematologic/Lymphatic: Reports: no symptoms Allergies: Uncoded Allergies: POLLEN (Allergy, Unknown, 07/23/16) Subjective No acute o/n events MRI shows needle in foot. D/w surgery and prefers to avoid removal given concern for creating large wound. WBC normalized Afebrile Pt states pain controlled. Denies f/c, n/v, d/c, chest pain, SOB Objective Last 24 Hour Vital Signs Date Time Temp Pulse Resp B/P (MAP) Pulse Ox O2 Delivery O2 Flow Rate FiO2 08/13/17 00:00 75 08/13/17 00:00 97.9 74 20 128/64 98 Room Air 08/12/17 20:00 97.9 80 21 130/67 96 Room Air 08/12/17 20:00 75 08/12/17 16:00 75 08/12/17 16:00 97.5 72 19 109/57 97 08/12/17 12:00 74 08/12/17 12:00 98.1 73 19 135/66 99 08/12/17 08:00 98.7 84 18 139/73 97 Intake and Output 08/12/17 08/13/17 19:00 07:00 Intake Total 610 ml Output Total 1000 ml Balance -390 ml Intake Oral 610 ml Output Urine Total 1000 ml # Voids 7 # Bowel Movements 1 Laboratory Tests 08/12/17 11:05: White Blood Count 8.4, Red Blood Count 3.32L, Hemoglobin 10.1L, Hematocrit 29.9L , Mean Corpuscular Volume 90, Mean Corpuscular Hemoglobin 30.3, Mean Corpuscular Hemoglobin Concent 33.6, Red Cell Distribution Width 14.3, Platelet Count 337, Mean Platelet Volume 6.5, Neutrophils (%) (Auto) 80.9H, Lymphocytes ( %) (Auto) 13.6L, Monocytes (%) (Auto) 4.7, Eosinophils (%) (Auto) 0.3, Basophils (%) (Auto) 0.5, Sodium Level 134L, Potassium Level 3.9, Chloride Level 98, Carbon Dioxide Level 28, Anion Gap 8, Blood Urea Nitrogen 16, Creatinine 0.9, Estimat Glomerular Filtration Rate > 60, Glucose Level 500#H, Calcium Level 8.9, Phosphorus Level 2.8, Magnesium Level 2.0 08/12/17 17:00: Vancomycin Level Trough 21.8H Height (Feet): 5 Height (Inches): 2.00 Weight (Pounds): 109 Objective General: alert, cooperative, no distress, appears stated age Head: normocephalic, without obvious abnormality, atraumatic Eyes: conjunctivae/corneas clear. PERRL, EOM's intact Throat: lips, mucosa, and tongue normal. MMM Neck: supple, symmetrical, trachea midline, and no JVD Lungs: clear to auscultation bilaterally Heart: regular rate and rhythm, S1, S2 normal, no murmur, click, rub or gallop Abdomen: soft, non-tender, non-distended, bowel sounds normal; no masses or organomegaly Extremities: +R BKA c/d/i, +multiple ulcers on plantar aspect--no drainage noted Neurologic: grossly normal, no focal deficits Gage Hermosillo M.D. Aug 13, 2017 05:58
[2017-08-13] MEDS ORDERED: NICODERM 21MG/241 EA TDERMAL (05:59)
[2017-08-13] MEDS ORDERED: NOVOLOG100 UNITS1 SUBQ (05:59)
[2017-08-13] MEDS ORDERED: STARLIX60 MG ORAL (05:59)
[2017-08-13] MEDS: Vancomycin 750mg/NS 250ml IVPB SCH ×3 (06:00→23:10)
[2017-08-13] MEDS: metroNIDAZOLE 500mg tab ORAL SCH ×3 (06:00→23:29)
[2017-08-13] MEDS: NovoLOG Insulin Flexpen SUBQ SCH ×4 (06:30→20:44)
[2017-08-13] MEDS: Nateglinide 60mg tab ORAL SCH ×3 (06:30→16:20)
[2017-08-13 08:00] VITALS: BP 125/68
[2017-08-13 08:13] LABS: ANION GAP 7 mmol/L (5-15); BLOOD UREA NITROGEN 16 mg/dL (7-18); CALCIUM 9.5 MG/DL (8.5-10.1); CARBON DIOXIDE 29 MMOL/L (21-32); CHLORIDE 99 MMOL/L (98-107); CREATININE 0.9 MG/DL (0.55-1.30); SODIUM 134 MMOL/L (136-145)
[2017-08-13 08:26] LABS: BASOPHILS % (AUTO) 0.7 % (0.0-2.0); EOSINOPHILS % (AUTO) 0.7 % (0.0-3.0); HEMATOCRIT 34.1 % (42.0-52.0); LYMPHOCYTES % (AUTO) 19.8 % (20.0-45.0); MEAN CORPUSCULAR VOLUME 91 FL (80-99); MONOCYTES % (AUTO) 3.9 % (1.0-10.0); NEUTROPHILS % (AUTO) 74.8 % (45.0-75.0); PLATELET COUNT 452 K/UL (150-450); RED BLOOD COUNT 3.75 M/UL (4.70-6.10); RED CELL DISTRIBUTION WIDTH 14.5 % (11.6-14.8); WHITE BLOOD COUNT 8.1 K/UL (4.8-10.8)
[2017-08-13] MEDS: Docusate 100mg cap ORAL SCH ×2 (09:29→20:42)
[2017-08-13] MEDS: Cefepime HCl 2 GM in NS 110 ML IV SCH ×2 (09:29→20:59)
[2017-08-13] MEDS: Levemir Flexpen SUBQ SCH (09:31)
[2017-08-13] MEDS: Heparin 5000 units/ml inj SUBQ SCH ×2 (09:32→20:46)
--- NOTE | 2017-08-13 11:41 | General Surgery Progress Note ---
General Surgery-Progress Note Subjective Symptoms: improved Additional Comments no acute events. tolerating diet. comfortable. Objective Last 24 Hour Vital Signs Date Time Temp Pulse Resp B/P (MAP) Pulse Ox O2 Delivery O2 Flow Rate FiO2 08/13/17 08:00 97.3 78 19 125/68 100 Room Air 08/13/17 08:00 81 08/13/17 04:00 97.0 81 20 138/79 97 Room Air 08/13/17 00:00 75 08/13/17 00:00 97.9 74 20 128/64 98 Room Air 08/12/17 20:00 97.9 80 21 130/67 96 Room Air 08/12/17 20:00 75 08/12/17 16:00 75 08/12/17 16:00 97.5 72 19 109/57 97 08/12/17 12:00 74 08/12/17 12:00 98.1 73 19 135/66 99 I&O Intake and Output 08/12/17 08/13/17 19:00 07:00 Intake Total 610 ml Output Total 1000 ml 1200 ml Balance -390 ml -1200 ml Intake Oral 610 ml Output Urine Total 1000 ml 1200 ml # Voids 7 # Bowel Movements 1 Cardiovascular: RSR Respiratory: clear Abdomen: soft, flat, non-tender, present bowel sounds Extremities: no tenderness, no cyanosis, other - left BKA. right with ulcers, no osteo, open wounds. no signs of active infection Laboratory Tests Test 08/12/17 17:00 08/13/17 06:44 Vancomycin Level Trough 21.8 ug/mL (5.0-12.0) H White Blood Count 8.1 K/UL (4.8-10.8) Red Blood Count 3.75 M/UL (4.70-6.10) L Hemoglobin 11.0 G/DL (14.2-18.0) L Hematocrit 34.1 % (42.0-52.0) L Mean Corpuscular Volume 91 FL (80-99) Mean Corpuscular Hemoglobin 29.4 PG (27.0-31.0) Mean Corpuscular Hemoglobin Concent 32.3 G/DL (32.0-36.0) Red Cell Distribution Width 14.5 % (11.6-14.8) Platelet Count 452 K/UL (150-450) H Mean Platelet Volume 6.3 FL (6.5-10.1) L Neutrophils (%) (Auto) 74.8 % (45.0-75.0) Lymphocytes (%) (Auto) 19.8 % (20.0-45.0) L Monocytes (%) (Auto) 3.9 % (1.0-10.0) Eosinophils (%) (Auto) 0.7 % (0.0-3.0) Basophils (%) (Auto) 0.7 % (0.0-2.0) Sodium Level 134 MMOL/L (136-145) L Potassium Level 4.0 MMOL/L (3.5-5.1) Chloride Level 99 MMOL/L (98-107) Carbon Dioxide Level 29 MMOL/L (21-32) Anion Gap 7 mmol/L (5-15) Blood Urea Nitrogen 16 mg/dL (7-18) Creatinine 0.9 MG/DL (0.55-1.30) Estimat Glomerular Filtration Rate > 60 mL/min (>60) Glucose Level 426 MG/DL (74-106) H Calcium Level 9.5 MG/DL (8.5-10.1) Plan Problems: (1) Foreign body in left foot with infection Assessment & Plan: 52M with foreign body in left plantar mid foot, multiple ulcers, poor hygiene, and DM neuropathy. leukocytosis of 21k initially but improving now. poor compliance foot much sack cleaner after great nursing care. cannot identify are of trauma/ foreign body as based on plain films. has ulcers and skin breakdown on foot but no signs of active infection MRI reviewed. no signs of osteo or active infection. ulcers seen and on physical exam benign. Metallic foreign object seen and no surrounding issues. no edema, inflammation, or other problems. fortunately has imbedded itself without issues. deep inside foot. given findings not necessary for inpatient excision of foreign body. discussed with patient and offered to happily help with excision if desired but needs to be done as an outpatient. okay to d/c from surgical standpoint info given to patient for outpatient follow up if desired to remove foreign body or help with wound care of foot very non compliant and glucose out of control. hopefully will see PCP to maintain care. will follow with recs. thank you for this consultation. Romero Mike Aug 13, 2017 11:41
[2017-08-13 12:00] VITALS: BP 132/69
--- NOTE | 2017-08-13 12:22 | Infectious Diseases Prog Note ---
Assessment/Plan Assessment/Plan ASSESSMENT AND PLAN: 1. left foot infected wound with cellulitis, sepsis, leukocytosis - clinically improved, leukocytosis resolved - continue vancomycin, cefepime and flagyl - day # 4 abx, plan on 10 day course abx - debridement per surgery, if needed - wound care per protocol - MRI of left foot without osteomyelitis 2. hiv, hx aids, off anti-retroviral therapy - CD4 - 508 - no need for prophylaxis - f/u with HIV MD as outpatient for evaluation for future hiv tx 3. History of chronic obstructive pulmonary disease. 4. History of diabetes. 5. Hypertension. 6. Blood sugar and blood pressure treatment per primary. 7. Anemia. 8. Peripheral vascular disease. 9. Right below-knee amputation. 10. History of nicotine dependency and chronic obstructive pulmonary disease. 11. Possible hyperlipidemia. 12. Bipolar disease. 13. Past medical history as noted. 14. Allergy to pollens. 15. Family history noncontributory. 16. Social history positive for smoking. 17. MAR was noted. 18. Case discussed with RN. 19. Case discussed with Dr. Almonte. 20. Surgery to follow up. 21. Continue treatment per primary consultants. 22. Notes and records were noted. 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 Subjective Constitutional: Reports: fatigue, Denies: fever HEENT: Denies: dysphagia, congestion Respiratory: Denies: shortness of breath Cardiovascular: Denies: chest pain Gastrointestinal/Abdominal: Denies: nausea, vomiting, diarrhea Genitourinary: Denies: dysuria, hematuria, frequency Neurologic: Denies: headache Psychiatric: Reports: anxiety, Denies: depression Skin: Denies: rash Hematologic: Denies: bleeding Musculoskeletal: Denies: pain Allergies: Uncoded Allergies: POLLEN (Allergy, Unknown, 07/23/16) Objective Vital Signs Last 24 Hour Vital Signs Date Time Temp Pulse Resp B/P (MAP) Pulse Ox O2 Delivery O2 Flow Rate FiO2 08/13/17 08:00 97.3 78 19 125/68 100 Room Air 08/13/17 08:00 81 08/13/17 04:00 97.0 81 20 138/79 97 Room Air 08/13/17 00:00 75 08/13/17 00:00 97.9 74 20 128/64 98 Room Air 08/12/17 20:00 97.9 80 21 130/67 96 Room Air 08/12/17 20:00 75 08/12/17 16:00 75 08/12/17 16:00 97.5 72 19 109/57 97 Height (Feet): 5 Height (Inches): 2.00 Weight (Pounds): 109 General Appearance: no acute distress HEENT: normocephalic, atraumatic, anicteric, mucous membranes moist, EOMI, pharynx normal, supple, no JVD Respiratory/Chest: lungs clear, normal breath sounds, no respiratory distress, no accessory muscle use Cardiovascular: normal rate, regular rhythm, no gallop/murmur, no JVD Abdomen: normal bowel sounds, soft, non tender, no organomegaly, non distended Genitourinary: other - no salazar, no cva pain Extremities: other - left foot covered, right bka noted Skin: no rash 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 Mild subcutaneous edema in this area. Correlate clinically to exclude cellulitis. No evidence of osteomyelitis or abscess formation. Metallic foreign body in the plantar soft tissues of the forefoot, as seen on prior radiographs. No surrounding fluid collection or abscess at this time. Microbiology Date/Time Source Procedure Growth Status 08/10/17 16:20 Blood Blood Culture - Preliminary NO GROWTH AFTER 48 HOURS Resulted 08/10/17 16:00 Blood Blood Culture - Preliminary NO GROWTH AFTER 48 HOURS Resulted 08/10/17 21:00 Nasal Nares MRSA Culture - Final Staphylococcus Aureus - Mrsa Complete 08/10/17 21:00 Rectum VRE Culture - Final NO VANCOMYCIN RESISTANT ENTEROCOCCUS ... Complete Laboratory Tests Test 08/12/17 17:00 08/13/17 06:44 Vancomycin Level Trough 21.8 ug/mL (5.0-12.0) H White Blood Count 8.1 K/UL (4.8-10.8) Red Blood Count 3.75 M/UL (4.70-6.10) L Hemoglobin 11.0 G/DL (14.2-18.0) L Hematocrit 34.1 % (42.0-52.0) L Mean Corpuscular Volume 91 FL (80-99) Mean Corpuscular Hemoglobin 29.4 PG (27.0-31.0) Mean Corpuscular Hemoglobin Concent 32.3 G/DL (32.0-36.0) Red Cell Distribution Width 14.5 % (11.6-14.8) Platelet Count 452 K/UL (150-450) H Mean Platelet Volume 6.3 FL (6.5-10.1) L Neutrophils (%) (Auto) 74.8 % (45.0-75.0) Lymphocytes (%) (Auto) 19.8 % (20.0-45.0) L Monocytes (%) (Auto) 3.9 % (1.0-10.0) Eosinophils (%) (Auto) 0.7 % (0.0-3.0) Basophils (%) (Auto) 0.7 % (0.0-2.0) Sodium Level 134 MMOL/L (136-145) L Potassium Level 4.0 MMOL/L (3.5-5.1) Chloride Level 99 MMOL/L (98-107) Carbon Dioxide Level 29 MMOL/L (21-32) Anion Gap 7 mmol/L (5-15) Blood Urea Nitrogen 16 mg/dL (7-18) Creatinine 0.9 MG/DL (0.55-1.30) Estimat Glomerular Filtration Rate > 60 mL/min (>60) Glucose Level 426 MG/DL (74-106) H Calcium Level 9.5 MG/DL (8.5-10.1) Current Medications Medications (Trade) Dose Ordered Sig/Antoni Route PRN Reason Start Time Stop Time Status Last Admin Dose Admin Acetaminophen (Tylenol) 650 mg Q4H PRN ORAL Mild Pain (Pain Scale 1-3) 08/10/17 08:30 09/09/17 08:29 08/10/17 18:44 Acetaminophen (Tylenol) 650 mg Q4H PRN ORAL fever (Temp>100.5F) 08/10/17 08:30 09/09/17 08:29 Atorvastatin Calcium (Lipitor) 20 mg BEDTIME ORAL 08/10/17 21:00 09/09/17 20:59 08/12/17 20:33 Bisacodyl (Dulcolax) 10 mg DAILYPRN PRN RECTAL Constipation 08/10/17 09:00 09/09/17 08:29 Cefepime HCl 2 gm/ Sodium Chloride 110 ml @ 220 mls/hr EVERY 12 HOURS IV 08/10/17 21:00 08/17/17 20:59 08/13/17 09:29 Dextrose (Dextrose 50%) STAT PRN IV Hypoglycemia 08/10/17 08:45 09/09/17 08:44 Docusate Sodium (Colace) 100 mg EVERY 12 HOURS ORAL 08/10/17 09:00 09/09/17 08:59 08/13/17 09:29 Escitalopram Oxalate (Lexapro) 10 mg DAILY ORAL 08/10/17 09:00 09/09/17 08:59 08/13/17 09:30 Gabapentin (Neurontin) 300 mg THREE TIMES A DAY ORAL 08/10/17 10:00 09/09/17 09:59 08/13/17 09:29 Heparin Sodium (Porcine) (Heparin 5000 units/ml) 5,000 units EVERY 12 HOURS SUBQ 08/10/17 09:00 09/09/17 08:59 08/13/17 09:32 Insulin Aspart (NovoLOG) BEFORE MEALS AND HS SUBQ 08/10/17 11:30 09/09/17 11:29 08/13/17 11:08 Insulin Detemir (Levemir) 20 units DAILY SUBQ 08/10/17 10:00 09/09/17 09:59 08/13/17 09:31 Metronidazole (Flagyl) 500 mg Q8HR ORAL 08/12/17 14:00 08/19/17 13:59 08/12/17 22:15 Nateglinide (Starlix) 60 mg TIAC ORAL 08/12/17 08:00 09/11/17 07:59 08/13/17 11:06 Nicotine (Nicoderm) 1 patch Q24H TDERMAL 08/11/17 12:00 09/10/17 11:59 08/13/17 11:07 Ondansetron HCl (Zofran) 4 mg Q6H PRN IVP Nausea & Vomiting 08/10/17 08:30 09/09/17 08:29 Polyethylene Glycol (Miralax) 17 gm DAILYPRN PRN ORAL Constipation 08/10/17 08:30 09/09/17 08:29 Risperidone (RisperDAL) 4 mg QHS ORAL 08/10/17 21:00 09/09/17 20:59 08/12/17 20:32 Sitagliptin Phosphate (Januvia) 100 mg ACBREAKFAST ORAL 08/12/17 08:00 09/11/17 07:59 08/12/17 09:01 Sodium Chloride 1,000 ml @ 75 mls/hr [id number] IV 08/11/17 20:00 09/10/17 19:59 08/13/17 11:06 Tramadol HCl (Ultram) 50 mg Q4H PRN ORAL pain 4-10 08/10/17 08:30 08/17/17 08:29 Vancomycin HCl (Vanco rx to dose) 1 ea DAILY PRN MISC Per rx protocol 08/10/17 08:45 09/09/17 08:44 Vancomycin/Sodium Chloride 250 ml @ 166.667 mls/hr Q8H IVPB 08/12/17 22:00 08/17/17 23:59 08/12/17 22:41 CAROL REBOLLEDO Aug 13, 2017 12:22
[2017-08-13] MEDS ORDERED: JANUVIA100 MG ORAL (14:14)
[2017-08-13] MEDS ORDERED: LORazepam 0.5mg tab ORAL PRN (14:15)
[2017-08-13] MEDS ORDERED: Vanco pharmacy to dose MISC (14:16)
[2017-08-13] MEDS ORDERED: FLAGYL500 MG ORAL (14:21)
[2017-08-13 16:00] VITALS: BP 129/65
[2017-08-13] MEDS ORDERED: Tubing IV Secondary IV ONE (16:20)
[2017-08-13 20:00] VITALS: BP 161/82
--- NOTE | 2017-08-13 20:03 | General Progress Note ---
Assessment/Plan Problem List: (1) L 2nd metatarsal head ulcer (2) Foreign body in left foot with infection ICD Codes: S90.852A - Superficial foreign body, left foot, initial encounter; L08.9 - Local infection of the skin and subcutaneous tissue, unspecified SNOMED: 87093298 Qualifiers: Qualified Codes: S90.852A - Superficial foreign body, left foot, initial encounter; L08.9 - Local infection of the skin and subcutaneous tissue, unspecified (3) Sepsis ICD Codes: A41.9 - Sepsis, unspecified organism SNOMED: 67148443 (4) Medical non-compliance ICD Codes: Z91.19 - Patient's noncompliance with other medical treatment and regimen SNOMED: 785323381 (5) Uncontrolled diabetes mellitus ICD Codes: E11.9 - Type 2 diabetes mellitus without complications SNOMED: 804369001 (6) HIV (human immunodeficiency virus infection) ICD Codes: B20 - Human immunodeficiency virus [HIV] disease SNOMED: 95770563 (7) Hx of right BKA ICD Codes: Z89.511 - Acquired absence of right leg below knee SNOMED: 098916478, 675160152, 883124461 (8) tobacco abuse (9) Bipolar disorder with depression ICD Codes: F31.30 - Bipolar disorder, current episode depressed, mild or moderate severity, unspecified SNOMED: 72423116 (10) Hyponatremia ICD Codes: E87.1 - Hypo-osmolality and hyponatremia SNOMED: 10043630 (11) Hyperglycemia ICD Codes: R73.9 - Hyperglycemia, unspecified SNOMED: 25506943 Status: stable Assessment/Plan ID and surgery consulted Empiric vanco and cefepime + flagyl for now F/u cultures Trend CBC MRI L foot ordered to eval for osteo --> shows needle in foot, R 2nd metatarsal head ulcer, but no e/o abscess or osteo. D/w surgery who prefers to avoid removal given concern for creating large wound. 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 CM consulted. Awaiting SNF bed. If no SNF bed then consider recuperative nursing home w/ home health Psych consulted DVT Prophylaxis: SCD, HSQ Code Status: Full Hospital Classification Declaration: Based on this initial evaluation, and depending on the patient's clinical course, I anticipate that this patient will require hospitalization for 1-2 days for L foot ulcers w/ infection, possible foreign body in L foot, and close respiratory/hemodynamic monitoring. Disposition: Once the patient is stable to leave the hospital, I anticipate the patient will likely be discharged to the following environment: SNF Discussed with patient/family, nursing staff, SW/CM, ID, surgery regarding clinical status, treatment course, and disposition planning. D/w ID re abx plan. Time of note may not reflect time of encounter. Subjective Date patient seen: Aug 13, 2017 Time patient seen: 10:00 ROS Limited/Unobtainable: No Constitutional: Reports: weakness HEENT: Reports: no symptoms Cardiovascular: Reports: no symptoms Respiratory: Reports: no symptoms Gastrointestinal/Abdominal: Reports: no symptoms Genitourinary: Reports: no symptoms Neurologic/Psychiatric: Reports: anxiety Endocrine: Reports: no symptoms Hematologic/Lymphatic: Reports: no symptoms Allergies: Uncoded Allergies: POLLEN (Allergy, Unknown, 07/23/16) Subjective No acute o/n events MRI shows needle in foot. D/w surgery and prefers to avoid removal given concern for creating large wound. WBC normalized Afebrile Sugars running high. Pt eating snacks. Noncompliant with diabetic diet Pt states pain controlled. Denies f/c, n/v, d/c, chest pain, SOB. C/o anxiety Objective Last 24 Hour Vital Signs Date Time Temp Pulse Resp B/P (MAP) Pulse Ox O2 Delivery O2 Flow Rate FiO2 08/13/17 16:00 74 08/13/17 16:00 98.1 83 19 129/65 97 Room Air 08/13/17 12:00 67 08/13/17 12:00 98.1 64 19 132/69 97 Room Air 08/13/17 08:00 97.3 78 19 125/68 100 Room Air 08/13/17 08:00 81 08/13/17 04:00 97.0 81 20 138/79 97 Room Air 08/13/17 00:00 75 08/13/17 00:00 97.9 74 20 128/64 98 Room Air Intake and Output 08/12/17 08/13/17 19:00 07:00 Intake Total 610 ml Output Total 1000 ml 1200 ml Balance -390 ml -1200 ml Intake Oral 610 ml Output Urine Total 1000 ml 1200 ml # Voids 7 # Bowel Movements 1 Laboratory Tests 08/13/17 06:44: White Blood Count 8.1, Red Blood Count 3.75L, Hemoglobin 11.0L, Hematocrit 34.1L , Mean Corpuscular Volume 91, Mean Corpuscular Hemoglobin 29.4, Mean Corpuscular Hemoglobin Concent 32.3, Red Cell Distribution Width 14.5, Platelet Count 452H, Mean Platelet Volume 6.3L, Neutrophils (%) (Auto) 74.8, Lymphocytes (%) (Auto) 19.8L, Monocytes (%) (Auto) 3.9, Eosinophils (%) (Auto) 0.7, Basophils (%) (Auto) 0.7, Sodium Level 134L, Potassium Level 4.0, Chloride Level 99, Carbon Dioxide Level 29, Anion Gap 7, Blood Urea Nitrogen 16, Creatinine 0.9, Estimat Glomerular Filtration Rate > 60, Glucose Level 426H, Calcium Level 9.5 Height (Feet): 5 Height (Inches): 2.00 Weight (Pounds): 109 Objective General: alert, cooperative, no distress, appears stated age Head: normocephalic, without obvious abnormality, atraumatic Eyes: conjunctivae/corneas clear. PERRL, EOM's intact Throat: lips, mucosa, and tongue normal. MMM Neck: supple, symmetrical, trachea midline, and no JVD Lungs: clear to auscultation bilaterally Heart: regular rate and rhythm, S1, S2 normal, no murmur, click, rub or gallop Abdomen: soft, non-tender, non-distended, bowel sounds normal; no masses or organomegaly Extremities: +R BKA c/d/i, +multiple ulcers on plantar aspect--no drainage noted Neurologic: grossly normal, no focal deficits Gage Hermosillo M.D. Aug 13, 2017 20:03
[2017-08-13] MEDS ORDERED: Iron Sucrose 100 MG in NS 55 ML IV SCH (21:00)
[2017-08-14] VITALS: BP 142/70
[2017-08-14] MEDS: NS w/KCl 20mEq 1,000 ML IV SCH ×3 (01:39→13:12)
[2017-08-14 04:00] VITALS: BP 137/69
[2017-08-14] MEDS ORDERED: traMADol 50mg tab ORAL PRN (04:30)
[2017-08-14] MEDS: Vancomycin 750mg/NS 250ml 250 ML IVPB SCH ×3 (05:49→23:06)
[2017-08-14] MEDS: Nateglinide 60mg tab ORAL SCH ×3 (06:13→16:10)
[2017-08-14] MEDS: metroNIDAZOLE 500mg tab ORAL SCH ×3 (06:13→21:16)
[2017-08-14] MEDS: NovoLOG Insulin Flexpen SUBQ SCH ×5 (06:17→21:28)
[2017-08-14 08:00] VITALS: BP 129/76
[2017-08-14] MEDS ORDERED: Miralax 17gm pkt ORAL PRN (08:30)
[2017-08-14] MEDS ORDERED: Levemir Flexpen SUBQ SCH ×3 (09:00)
[2017-08-14] MEDS: Docusate 100mg cap ORAL SCH ×2 (09:08→21:00)
[2017-08-14] MEDS: Cefepime HCl 2 GM in NS 110 ML IV SCH ×2 (09:09→21:15)
[2017-08-14] MEDS: Heparin 5000 units/ml inj SUBQ SCH ×2 (09:11→21:26)
--- NOTE | 2017-08-14 10:07 | General Surgery Progress Note ---
General Surgery-Progress Note Subjective Symptoms: improved, tolerating diet, voiding well, passing flatus, BM Additional Comments no acute events. comfortable. Objective Last 24 Hour Vital Signs Date Time Temp Pulse Resp B/P (MAP) Pulse Ox O2 Delivery O2 Flow Rate FiO2 08/14/17 08:00 98.2 83 18 129/76 08/14/17 04:00 98.3 89 20 137/69 99 08/14/17 00:00 98.1 83 20 142/70 100 08/13/17 20:00 98.3 80 19 161/82 96 08/13/17 20:00 72 08/13/17 16:00 74 08/13/17 16:00 98.1 83 19 129/65 97 Room Air 08/13/17 12:00 67 08/13/17 12:00 98.1 64 19 132/69 97 Room Air I&O Intake and Output 08/13/17 08/14/17 19:00 07:00 Intake Total 2663.000 ml 420 ml Output Total 3400 ml 1400 ml Balance -737.000 ml -980 ml Intake Oral 1508 ml 420 ml IV Total 1155.000 ml Output Urine Total 3400 ml 1400 ml # Voids 2 4 # Bowel Movements 3 2 Cardiovascular: RSR Respiratory: clear Abdomen: soft, non-tender, present bowel sounds Extremities: no edema, no tenderness, other - severe peripheral neuropathy. left bka. right with wounds. cannot identify foreign body on exam. no signs of active infection Laboratory Tests Test 08/13/17 21:25 Vancomycin Level Trough 14.2 ug/mL (5.0-12.0) H Plan Problems: (1) Foreign body in left foot with infection Assessment & Plan: 52M with foreign body in left plantar mid foot, multiple ulcers, poor hygiene, and DM neuropathy. leukocytosis resolved. 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 cannot identify are of trauma/ foreign body as based on plain films. has ulcers and skin breakdown on foot but no signs of active infection MRI reviewed. no signs of osteo or active infection. ulcers seen and on physical exam benign. Metallic foreign object seen and no surrounding issues. no edema, inflammation, or other problems. fortunately has imbedded itself without issues. deep inside foot. given findings not necessary for inpatient excision of foreign body. discussed with patient and offered to happily help with excision if desired but needs to be done as an outpatient. okay to d/c from surgical standpoint info given to patient for outpatient follow up if desired to remove foreign body or help with wound care of foot very non compliant and glucose out of control. hopefully will see PCP to maintain care. will follow with recs. thank you for this consultation. Romero Mike Aug 14, 2017 10:07
[2017-08-14] MEDS ORDERED: Tubing IV Secondary IV ONE (10:23)
[2017-08-14 12:00] VITALS: BP 130/72
[2017-08-14] MEDS ORDERED: NovoLOG Insulin Flexpen SUBQ ONE (12:45)
[2017-08-14] MEDS ORDERED: NOVOLOG100 UNITS1 SUBQ (13:34)
[2017-08-14] MEDS ORDERED: LEVEMIR FL100 UNIT/1 SUBQ (13:34)
--- NOTE | 2017-08-14 14:18 | Infectious Diseases Prog Note ---
Assessment/Plan Assessment/Plan ASSESSMENT AND PLAN: 1. left foot infected wound with cellulitis, sepsis, leukocytosis - clinically improved, leukocytosis resolved - continue vancomycin, cefepime and flagyl - day # 5 abx, plan on 10 day course abx - can change to oral levofloxacin and bactrim to finish course, in needed - debridement per surgery, if needed - wound care per protocol - MRI of left foot without osteomyelitis 2. hiv, hx aids, off anti-retroviral therapy - CD4 - 508 - no need for prophylaxis - f/u with HIV MD as outpatient for evaluation for future hiv tx - check viral load 3. History of chronic obstructive pulmonary disease. 4. History of diabetes. 5. Hypertension. 6. Blood sugar and blood pressure treatment per primary. 7. Anemia. 8. Peripheral vascular disease. 9. Right below-knee amputation. 10. History of nicotine dependency and chronic obstructive pulmonary disease. 11. Possible hyperlipidemia. 12. Bipolar disease. 13. Past medical history as noted. 14. Allergy to pollens. 15. Family history noncontributory. 16. Social history positive for smoking. 17. MAR was noted. 18. Case discussed with RN. 19. Case discussed with Dr. Almonte. 20. Surgery to follow up. 21. Continue treatment per primary consultants. 22. Notes and records were noted. 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 Subjective Constitutional: Denies: fever HEENT: Denies: congestion Respiratory: Denies: shortness of breath Cardiovascular: Denies: chest pain Gastrointestinal/Abdominal: Denies: nausea, vomiting, diarrhea Genitourinary: Denies: dysuria Neurologic: Denies: headache, numbness Psychiatric: Denies: depression Skin: Denies: rash Hematologic: Denies: bleeding Musculoskeletal: Denies: pain Allergies: Uncoded Allergies: POLLEN (Allergy, Unknown, 07/23/16) Objective Vital Signs Last 24 Hour Vital Signs Date Time Temp Pulse Resp B/P (MAP) Pulse Ox O2 Delivery O2 Flow Rate FiO2 08/14/17 12:00 98.1 80 20 130/72 99 08/14/17 10:07 98.2 08/14/17 08:00 98.2 83 18 129/76 08/14/17 04:00 98.3 89 20 137/69 99 08/14/17 00:00 98.1 83 20 142/70 100 08/13/17 20:00 98.3 80 19 161/82 96 08/13/17 20:00 72 08/13/17 16:00 74 08/13/17 16:00 98.1 83 19 129/65 97 Room Air Height (Feet): 5 Height (Inches): 2.00 Weight (Pounds): 109 General Appearance: no acute distress HEENT: normocephalic, atraumatic, anicteric, mucous membranes moist Respiratory/Chest: lungs clear, normal breath sounds, no respiratory distress, no accessory muscle use Cardiovascular: normal rate, regular rhythm, no gallop/murmur, no JVD Abdomen: normal bowel sounds, soft, non tender, no organomegaly, non distended Genitourinary: other - no salazar Extremities: no cyanosis Skin: no rash 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 Mild subcutaneous edema in this area. Correlate clinically to exclude cellulitis. No evidence of osteomyelitis or abscess formation. Metallic foreign body in the plantar soft tissues of the forefoot, as seen on prior radiographs. No surrounding fluid collection or abscess at this time. Microbiology Date/Time Source Procedure Growth Status 08/10/17 16:20 Blood Blood Culture - Preliminary NO GROWTH AFTER 72 HOURS Resulted 08/10/17 21:00 Nasal Nares MRSA Culture - Final Staphylococcus Aureus - Mrsa Complete 08/10/17 21:00 Rectum VRE Culture - Final NO VANCOMYCIN RESISTANT ENTEROCOCCUS ... Complete Labs Test 08/11/17 16:35 08/12/17 11:05 08/12/17 17:00 08/13/17 06:44 Vancomycin Level Trough 8.2 ug/mL (5.0-12.0) 21.8 ug/mL (5.0-12.0) White Blood Count 8.4 K/UL (4.8-10.8) 8.1 K/UL (4.8-10.8) Red Blood Count 3.32 M/UL (4.70-6.10) 3.75 M/UL (4.70-6.10) Hemoglobin 10.1 G/DL (14.2-18.0) 11.0 G/DL (14.2-18.0) Hematocrit 29.9 % (42.0-52.0) 34.1 % (42.0-52.0) Mean Corpuscular Volume 90 FL (80-99) 91 FL (80-99) Mean Corpuscular Hemoglobin 30.3 PG (27.0-31.0) 29.4 PG (27.0-31.0) Mean Corpuscular Hemoglobin Concent 33.6 G/DL (32.0-36.0) 32.3 G/DL (32.0-36.0) Red Cell Distribution Width 14.3 % (11.6-14.8) 14.5 % (11.6-14.8) Platelet Count 337 K/UL (150-450) 452 K/UL (150-450) Mean Platelet Volume 6.5 FL (6.5-10.1) 6.3 FL (6.5-10.1) Neutrophils (%) (Auto) 80.9 % (45.0-75.0) 74.8 % (45.0-75.0) Lymphocytes (%) (Auto) 13.6 % (20.0-45.0) 19.8 % (20.0-45.0) Monocytes (%) (Auto) 4.7 % (1.0-10.0) 3.9 % (1.0-10.0) Eosinophils (%) (Auto) 0.3 % (0.0-3.0) 0.7 % (0.0-3.0) Basophils (%) (Auto) 0.5 % (0.0-2.0) 0.7 % (0.0-2.0) Sodium Level 134 MMOL/L (136-145) 134 MMOL/L (136-145) Potassium Level 3.9 MMOL/L (3.5-5.1) 4.0 MMOL/L (3.5-5.1) Chloride Level 98 MMOL/L (98-107) 99 MMOL/L (98-107) Carbon Dioxide Level 28 MMOL/L (21-32) 29 MMOL/L (21-32) Anion Gap 8 mmol/L (5-15) 7 mmol/L (5-15) Blood Urea Nitrogen 16 mg/dL (7-18) 16 mg/dL (7-18) Creatinine 0.9 MG/DL (0.55-1.30) 0.9 MG/DL (0.55-1.30) Estimat Glomerular Filtration Rate > 60 mL/min (>60) > 60 mL/min (>60) Glucose Level 500 MG/DL (74-106) 426 MG/DL (74-106) Calcium Level 8.9 MG/DL (8.5-10.1) 9.5 MG/DL (8.5-10.1) Phosphorus Level 2.8 MG/DL (2.5-4.9) Magnesium Level 2.0 MG/DL (1.8-2.4) Test 08/13/17 21:25 Vancomycin Level Trough 14.2 ug/mL (5.0-12.0) Laboratory Tests Test 08/13/17 21:25 Vancomycin Level Trough 14.2 ug/mL (5.0-12.0) H Current Medications Medications (Trade) Dose Ordered Sig/Antoni Route PRN Reason Start Time Stop Time Status Last Admin Dose Admin Acetaminophen (Tylenol) 650 mg Q4H PRN ORAL Mild Pain (Pain Scale 1-3) 08/14/17 04:30 09/09/17 08:29 Acetaminophen (Tylenol) 650 mg Q4H PRN ORAL fever (Temp>100.5F) 08/14/17 04:30 09/09/17 08:29 Atorvastatin Calcium (Lipitor) 20 mg BEDTIME ORAL 08/14/17 21:00 09/09/17 20:59 Bisacodyl (Dulcolax) 10 mg DAILYPRN PRN RECTAL Constipation 08/14/17 09:00 09/09/17 08:29 Cefepime HCl 2 gm/ Sodium Chloride 110 ml @ 220 mls/hr EVERY 12 HOURS IV 08/14/17 09:00 08/17/17 20:59 08/14/17 09:09 Dextrose (Dextrose 50%) STAT PRN IV Hypoglycemia 08/14/17 12:15 09/13/17 12:14 Docusate Sodium (Colace) 100 mg EVERY 12 HOURS ORAL 08/14/17 09:00 09/09/17 08:59 08/14/17 09:08 Escitalopram Oxalate (Lexapro) 10 mg DAILY ORAL 08/14/17 09:00 09/09/17 08:59 08/14/17 09:07 Gabapentin (Neurontin) 300 mg THREE TIMES A DAY ORAL 08/14/17 09:00 09/09/17 09:59 08/14/17 12:27 Heparin Sodium (Porcine) (Heparin 5000 units/ml) 5,000 units EVERY 12 HOURS SUBQ 08/14/17 09:00 09/09/17 08:59 08/14/17 09:11 Insulin Aspart (NovoLOG) BEFORE MEALS AND HS SUBQ 08/14/17 16:30 09/13/17 16:29 Insulin Aspart (NovoLOG) 8 units NOVOTIAC SUBQ 08/14/17 16:50 09/13/17 16:49 Insulin Detemir (Levemir) 20 units EVERY 12 HOURS SUBQ 08/14/17 21:00 09/13/17 20:59 Iron Sucrose 100 mg/Sodium Chloride 60 ml @ 240 mls/hr BEDTIME IV 08/14/17 21:00 08/17/17 21:14 Lorazepam (Ativan) 0.5 mg TIDPRN PRN ORAL For Anxiety 08/14/17 14:15 08/20/17 14:14 Metronidazole (Flagyl) 500 mg Q8HR ORAL 08/14/17 06:00 08/19/17 13:59 08/14/17 13:12 Nateglinide (Starlix) 60 mg TIAC ORAL 08/14/17 06:30 09/11/17 07:59 08/14/17 11:13 Nicotine (Nicoderm) 1 patch Q24H TDERMAL 08/14/17 12:00 09/10/17 11:59 08/14/17 12:28 Ondansetron HCl (Zofran) 4 mg Q6H PRN IVP Nausea & Vomiting 08/14/17 02:30 09/09/17 08:29 Polyethylene Glycol (Miralax) 17 gm DAILYPRN PRN ORAL Constipation 08/14/17 08:30 09/09/17 08:29 Risperidone (RisperDAL) 4 mg QHS ORAL 08/14/17 21:00 09/09/17 20:59 Sitagliptin Phosphate (Januvia) 100 mg ACBREAKFAST ORAL 08/14/17 06:30 09/11/17 07:59 08/14/17 06:13 Tramadol HCl (Ultram) 50 mg Q4H PRN ORAL pain 4-10 08/14/17 04:30 08/17/17 08:29 08/14/17 09:08 Vancomycin HCl (Vanco rx to dose) 1 ea DAILY PRN MISC Per rx protocol 08/14/17 09:00 09/09/17 08:44 Vancomycin/Sodium Chloride 250 ml @ 166.667 mls/hr Q8H IVPB 08/14/17 06:00 08/17/17 23:59 08/14/17 13:11 CAROL REBOLLEDO Aug 14, 2017 14:18
[2017-08-14 16:00] VITALS: BP 124/77
[2017-08-14] MEDS: LORazepam 0.5mg tab ORAL PRN (17:30)
[2017-08-14 20:00] VITALS: BP 125/57
[2017-08-14] MEDS: Iron Sucrose 100 MG in NS 55 ML IV SCH (21:14)
[2017-08-14] MEDS: Levemir Flexpen SUBQ SCH (21:27)
--- NOTE | 2017-08-14 23:05 | Geriatric Medicine Prog Note ---
DATE: 08/14/2017 NOTE: POOR AUDIO SUBJECTIVE: The patient is more comfortable today. OBJECTIVE: VITAL SIGNS: Blood pressure 169/82, pulse 80, respiratory rate 19, temperature 98. RESPIRATORY: Clear. CARDIOVASCULAR: Regular. LABORATORY DATA: Glucose 245. ASSESSMENT: Diabetes mellitus, fair control. PLAN: Detemir from 25 units at bedtime to 15 units q.12 h. sliding scale NovoLog q.i.d. before meals and at bedtime. Joshua De La Paz M.D. DR: STACEY JOB#: [id number] CC:
[2017-08-15] VITALS: BP 138/58
--- NOTE | 2017-08-15 00:06 | General Progress Note ---
Assessment/Plan Problem List: (1) L 2nd metatarsal head ulcer (2) Foreign body in left foot with infection ICD Codes: S90.852A - Superficial foreign body, left foot, initial encounter; L08.9 - Local infection of the skin and subcutaneous tissue, unspecified SNOMED: 53683143 Qualifiers: Qualified Codes: S90.852A - Superficial foreign body, left foot, initial encounter; L08.9 - Local infection of the skin and subcutaneous tissue, unspecified (3) Sepsis ICD Codes: A41.9 - Sepsis, unspecified organism SNOMED: 36445184 (4) Medical non-compliance ICD Codes: Z91.19 - Patient's noncompliance with other medical treatment and regimen SNOMED: 544967007 (5) Uncontrolled diabetes mellitus ICD Codes: E11.9 - Type 2 diabetes mellitus without complications SNOMED: 227825787 (6) HIV (human immunodeficiency virus infection) ICD Codes: B20 - Human immunodeficiency virus [HIV] disease SNOMED: 41743365 (7) Hx of right BKA ICD Codes: Z89.511 - Acquired absence of right leg below knee SNOMED: 756537145, 730479825, 257779926 (8) tobacco abuse (9) Bipolar disorder with depression ICD Codes: F31.30 - Bipolar disorder, current episode depressed, mild or moderate severity, unspecified SNOMED: 93884306 (10) Hyponatremia ICD Codes: E87.1 - Hypo-osmolality and hyponatremia SNOMED: 42371216 (11) Hyperglycemia ICD Codes: R73.9 - Hyperglycemia, unspecified SNOMED: 33674709 Status: stable Assessment/Plan ID and surgery consulted Empiric vanco and cefepime + flagyl for now--plan for 10 days course per ID, currently day 5/10 F/u cultures Trend CBC MRI L foot ordered to eval for osteo --> shows needle in foot, R 2nd metatarsal head ulcer, but no e/o abscess or osteo. D/w surgery who prefers to avoid removal given concern for creating large wound. Will monitor for now Hold HAART as pt is noncompliant and states that he is not currently taking F/u CD4 count Endo consulted Levemir 20U BID Aspart 8U TID AC SSI Starlix + januvia started F/u A1C-->14.8 Nicotine patch ordered per pt request Crossing Watchman on smoking cessation Pain control, bowel regimen Supportive care PT eval Pt amenable to d/c to SNF at this time. CM consulted. Awaiting SNF bed. If no SNF bed then consider recuperative fdc w/ home health Psych consulted DVT Prophylaxis: SCD, HSQ Code Status: Full Hospital Classification Declaration: Based on this initial evaluation, and depending on the patient's clinical course, I anticipate that this patient will require hospitalization for 1-2 days for L foot ulcers w/ infection, possible foreign body in L foot, and close respiratory/hemodynamic monitoring. Disposition: Once the patient is stable to leave the hospital, I anticipate the patient will likely be discharged to the following environment: SNF Discussed with patient/family, nursing staff, SW/CM, ID, surgery regarding clinical status, treatment course, and disposition planning. D/w ID re abx plan. D/w endo re BG control, insulin adjustment Time of note may not reflect time of encounter. Subjective Date patient seen: Aug 14, 2017 Time patient seen: 11:00 ROS Limited/Unobtainable: No Constitutional: Reports: malaise, weakness HEENT: Reports: no symptoms Cardiovascular: Reports: no symptoms Respiratory: Reports: no symptoms Gastrointestinal/Abdominal: Reports: no symptoms Genitourinary: Reports: no symptoms Neurologic/Psychiatric: Reports: no symptoms Endocrine: Reports: no symptoms Hematologic/Lymphatic: Reports: no symptoms Allergies: Uncoded Allergies: POLLEN (Allergy, Unknown, 07/23/16) Subjective No acute o/n events MRI shows needle in foot. D/w surgery and prefers to avoid removal given concern for creating large wound. WBC normalized Afebrile Sugars running high. Pt eating snacks. Noncompliant with diabetic diet Pt states pain controlled. Denies f/c, n/v, d/c, chest pain, SOB. C/o anxiety Objective Last 24 Hour Vital Signs Date Time Temp Pulse Resp B/P (MAP) Pulse Ox O2 Delivery O2 Flow Rate FiO2 08/14/17 20:00 97.0 72 20 125/57 100 08/14/17 16:00 98.1 76 17 124/77 100 Room Air 08/14/17 16:00 97.9 76 18 124/77 Room Air 08/14/17 12:00 98.1 80 20 130/72 99 08/14/17 10:07 98.2 08/14/17 08:00 98.2 83 18 129/76 08/14/17 04:00 98.3 89 20 137/69 99 Intake and Output 08/14/17 08/15/17 19:00 07:00 Intake Total 1043.334 ml Output Total 1000 ml Balance 43.334 ml Intake Oral 600 ml IV Total 443.334 ml Output Urine Total 1000 ml # Voids 6 # Bowel Movements 1 Height (Feet): 5 Height (Inches): 2.00 Weight (Pounds): 109 Objective General: alert, cooperative, no distress, appears stated age Head: normocephalic, without obvious abnormality, atraumatic Eyes: conjunctivae/corneas clear. PERRL, EOM's intact Throat: lips, mucosa, and tongue normal. MMM Neck: supple, symmetrical, trachea midline, and no JVD Lungs: clear to auscultation bilaterally Heart: regular rate and rhythm, S1, S2 normal, no murmur, click, rub or gallop Abdomen: soft, non-tender, non-distended, bowel sounds normal; no masses or organomegaly Extremities: +R BKA c/d/i, +multiple ulcers on plantar aspect--no drainage noted Neurologic: grossly normal, no focal deficits Gage Hermosillo M.D. Aug 15, 2017 00:06
[2017-08-15] MEDS: LORazepam 0.5mg tab ORAL PRN (01:52)
[2017-08-15 04:00] VITALS: BP 147/73
[2017-08-15 06:11] LABS: BASOPHILS % (AUTO) 0.6 % (0.0-2.0); EOSINOPHILS % (AUTO) 0.3 % (0.0-3.0); HEMATOCRIT 31.8 % (42.0-52.0); HEMOGLOBIN 10.5 G/DL (14.2-18.0); LYMPHOCYTES % (AUTO) 19.9 % (20.0-45.0); MEAN CORPUSCULAR VOLUME 89 FL (80-99); MONOCYTES % (AUTO) 5.4 % (1.0-10.0); NEUTROPHILS % (AUTO) 73.8 % (45.0-75.0); PLATELET COUNT 376 K/UL (150-450); RED CELL DISTRIBUTION WIDTH 13.9 % (11.6-14.8); WHITE BLOOD COUNT 7.5 K/UL (4.8-10.8)
[2017-08-15 06:18] LABS: ANION GAP 5 mmol/L (5-15); BLOOD UREA NITROGEN 10 mg/dL (7-18); CALCIUM 9.2 MG/DL (8.5-10.1); CARBON DIOXIDE 31 MMOL/L (21-32); CHLORIDE 96 MMOL/L (98-107); CREATININE 0.9 MG/DL (0.55-1.30); POTASSIUM 3.2 MMOL/L (3.5-5.1); SODIUM 132 MMOL/L (136-145)
[2017-08-15] MEDS: Nateglinide 60mg tab ORAL SCH ×3 (06:45→17:18)
[2017-08-15] MEDS: metroNIDAZOLE 500mg tab ORAL SCH ×3 (06:45→21:36)
[2017-08-15] MEDS: NovoLOG Insulin Flexpen SUBQ SCH ×7 (06:48→21:39)
[2017-08-15] MEDS: Vancomycin 750mg/NS 250ml 250 ML IVPB SCH ×2 (08:24→20:21)
[2017-08-15] MEDS: Heparin 5000 units/ml inj SUBQ SCH ×2 (08:35→21:37)
[2017-08-15 08:43] VITALS: BP 145/75
[2017-08-15] MEDS: Levemir Flexpen SUBQ SCH ×2 (08:46→21:38)
[2017-08-15] MEDS: Docusate 100mg cap ORAL SCH ×2 (08:47→21:36)
--- NOTE | 2017-08-15 10:57 | Infectious Diseases Prog Note ---
Assessment/Plan Assessment/Plan ASSESSMENT AND PLAN: 1. left foot infected wound with cellulitis, sepsis, leukocytosis - clinically improved, leukocytosis resolved - continue vancomycin, cefepime and flagyl - day # 6 abx, plan on 10 day course abx - can change to oral levofloxacin and bactrim to finish course, in needed - debridement per surgery, if needed - wound care per protocol - MRI of left foot without osteomyelitis 2. hiv, hx aids, off anti-retroviral therapy - CD4 - 508 - no need for prophylaxis - f/u with HIV MD as outpatient for evaluation for future hiv tx - viral load pending 3. History of chronic obstructive pulmonary disease. 4. History of diabetes. 5. Hypertension. 6. Blood sugar and blood pressure treatment per primary. 7. Anemia. 8. Peripheral vascular disease. 9. Right below-knee amputation. 10. History of nicotine dependency and chronic obstructive pulmonary disease. 11. Possible hyperlipidemia. 12. Bipolar disease. 13. Past medical history as noted. 14. Allergy to pollens. 15. Family history noncontributory. 16. Social history positive for smoking. 17. MAR was noted. 18. Case discussed with RN. 19. Case discussed with Dr. Almonte. 20. Surgery to follow up. 21. Continue treatment per primary consultants. 22. Notes and records were noted. 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 Subjective Constitutional: Reports: fatigue, Denies: fever HEENT: Denies: congestion Respiratory: Denies: shortness of breath Cardiovascular: Denies: chest pain Gastrointestinal/Abdominal: Denies: nausea, vomiting, diarrhea Genitourinary: Denies: dysuria, hematuria Neurologic: Denies: headache, numbness Psychiatric: Denies: depression Skin: Denies: rash Hematologic: Denies: bleeding Musculoskeletal: Denies: pain Allergies: Uncoded Allergies: POLLEN (Allergy, Unknown, 07/23/16) Objective Vital Signs Last 24 Hour Vital Signs Date Time Temp Pulse Resp B/P (MAP) Pulse Ox O2 Delivery O2 Flow Rate FiO2 08/15/17 08:43 97.3 71 20 145/75 100 08/15/17 04:00 97.5 66 20 147/73 100 08/15/17 00:00 97.0 69 20 138/58 100 08/14/17 20:00 97.0 72 20 125/57 100 2/4/18 20:00 Room Air 08/14/17 16:00 98.1 76 17 124/77 100 Room Air 08/14/17 16:00 97.9 76 18 124/77 Room Air 08/14/17 12:00 98.1 80 20 130/72 99 Height (Feet): 5 Height (Inches): 2.00 Weight (Pounds): 109 General Appearance: no acute distress HEENT: normocephalic, atraumatic, anicteric, mucous membranes moist, EOMI, supple, no JVD Respiratory/Chest: lungs clear, normal breath sounds, no respiratory distress, no accessory muscle use Cardiovascular: normal rate, regular rhythm, no gallop/murmur, no JVD Abdomen: normal bowel sounds, soft, non tender, no organomegaly, non distended Genitourinary: other - no salazar Extremities: no cyanosis, other - left foot wound covered Skin: no rash Neurologic/Psychiatric: loop cutter II-XII grossly normal, alert, oriented x 3, responsive Lymphatic: no neck adenopathy Musculoskeletal: no effusion Objective MRI left foot - IMPRESSION: Skin irregularity underlying the second metatarsal head likely representing ulcer. Mild subcutaneous edema in this area. Correlate clinically to exclude cellulitis. No evidence of osteomyelitis or abscess formation. Metallic foreign body in the plantar soft tissues of the forefoot, as seen on prior radiographs. No surrounding fluid collection or abscess at this time. Microbiology Date/Time Source Procedure Growth Status 08/10/17 16:20 Blood Blood Culture - Preliminary NO GROWTH AFTER 4 DAYS Resulted 08/10/17 21:00 Nasal Nares MRSA Culture - Final Staphylococcus Aureus - Mrsa Complete 08/10/17 21:00 Rectum VRE Culture - Final NO VANCOMYCIN RESISTANT ENTEROCOCCUS ... Complete Laboratory Tests Test 08/15/17 05:50 White Blood Count 7.5 K/UL (4.8-10.8) Red Blood Count 3.60 M/UL (4.70-6.10) L Hemoglobin 10.5 G/DL (14.2-18.0) L Hematocrit 31.8 % (42.0-52.0) L Mean Corpuscular Volume 89 FL (80-99) Mean Corpuscular Hemoglobin 29.3 PG (27.0-31.0) Mean Corpuscular Hemoglobin Concent 33.1 G/DL (32.0-36.0) Red Cell Distribution Width 13.9 % (11.6-14.8) Platelet Count 376 K/UL (150-450) Mean Platelet Volume 6.4 FL (6.5-10.1) L Neutrophils (%) (Auto) 73.8 % (45.0-75.0) Lymphocytes (%) (Auto) 19.9 % (20.0-45.0) L Monocytes (%) (Auto) 5.4 % (1.0-10.0) Eosinophils (%) (Auto) 0.3 % (0.0-3.0) Basophils (%) (Auto) 0.6 % (0.0-2.0) Sodium Level 132 MMOL/L (136-145) L Potassium Level 3.2 MMOL/L (3.5-5.1) L Chloride Level 96 MMOL/L (98-107) L Carbon Dioxide Level 31 MMOL/L (21-32) Anion Gap 5 mmol/L (5-15) Blood Urea Nitrogen 10 mg/dL (7-18) Creatinine 0.9 MG/DL (0.55-1.30) Estimat Glomerular Filtration Rate > 60 mL/min (>60) Glucose Level 257 MG/DL (74-106) H Calcium Level 9.2 MG/DL (8.5-10.1) Vancomycin Level Trough 17.7 ug/mL (5.0-12.0) H HIV-1 RNA (PCR) log10 Value Pending HIV-1 RNA Ultraquantitative (PCR) Pending Current Medications Medications (Trade) Dose Ordered Sig/Antoni Route PRN Reason Start Time Stop Time Status Last Admin Dose Admin Acetaminophen (Tylenol) 650 mg Q4H PRN ORAL Mild Pain (Pain Scale 1-3) 08/14/17 04:30 09/09/17 08:29 Acetaminophen (Tylenol) 650 mg Q4H PRN ORAL fever (Temp>100.5F) 08/14/17 04:30 09/09/17 08:29 Atorvastatin Calcium (Lipitor) 20 mg BEDTIME ORAL 08/14/17 21:00 09/09/17 20:59 08/14/17 21:15 Bisacodyl (Dulcolax) 10 mg DAILYPRN PRN RECTAL Constipation 08/14/17 09:00 09/09/17 08:29 Cefepime HCl 2 gm/ Sodium Chloride 110 ml @ 220 mls/hr EVERY 12 HOURS IV 08/14/17 09:00 08/17/17 20:59 08/14/17 21:15 Dextrose (Dextrose 50%) STAT PRN IV Hypoglycemia 08/14/17 12:15 09/13/17 12:14 Docusate Sodium (Colace) 100 mg EVERY 12 HOURS ORAL 08/14/17 09:00 09/09/17 08:59 08/14/17 09:08 Escitalopram Oxalate (Lexapro) 10 mg DAILY ORAL 08/14/17 09:00 09/09/17 08:59 08/15/17 08:24 Gabapentin (Neurontin) 300 mg THREE TIMES A DAY ORAL 08/14/17 09:00 09/09/17 09:59 08/15/17 08:24 Heparin Sodium (Porcine) (Heparin 5000 units/ml) 5,000 units EVERY 12 HOURS SUBQ 08/14/17 09:00 09/09/17 08:59 08/15/17 08:35 Insulin Aspart (NovoLOG) BEFORE MEALS AND HS SUBQ 08/14/17 16:30 09/13/17 16:29 08/15/17 06:48 Insulin Aspart (NovoLOG) 8 units NOVOTIAC SUBQ 08/14/17 16:50 09/13/17 16:49 08/15/17 06:50 Insulin Detemir (Levemir) 20 units EVERY 12 HOURS SUBQ 08/14/17 21:00 09/13/17 20:59 08/15/17 08:46 Iron Sucrose 100 mg/Sodium Chloride 60 ml @ 240 mls/hr BEDTIME IV 08/14/17 21:00 08/17/17 21:14 08/14/17 21:14 Lorazepam (Ativan) 0.5 mg TIDPRN PRN ORAL For Anxiety 08/14/17 14:15 08/20/17 14:14 08/15/17 01:52 Metronidazole (Flagyl) 500 mg Q8HR ORAL 08/14/17 06:00 08/19/17 13:59 08/15/17 06:45 Nateglinide (Starlix) 60 mg TIAC ORAL 08/14/17 06:30 09/11/17 07:59 08/15/17 06:45 Nicotine (Nicoderm) 1 patch Q24H TDERMAL 08/14/17 12:00 09/10/17 11:59 08/14/17 12:28 Ondansetron HCl (Zofran) 4 mg Q6H PRN IVP Nausea & Vomiting 08/14/17 02:30 09/09/17 08:29 08/15/17 01:52 Polyethylene Glycol (Miralax) 17 gm DAILYPRN PRN ORAL Constipation 08/14/17 08:30 09/09/17 08:29 Risperidone (RisperDAL) 4 mg QHS ORAL 08/14/17 21:00 09/09/17 20:59 08/14/17 21:16 Sitagliptin Phosphate (Januvia) 100 mg ACBREAKFAST ORAL 08/14/17 06:30 09/11/17 07:59 08/15/17 06:45 Tramadol HCl (Ultram) 50 mg Q4H PRN ORAL pain 4-10 08/14/17 04:30 08/17/17 08:29 08/14/17 09:08 Vancomycin HCl (Vanco rx to dose) 1 ea DAILY PRN MISC Per rx protocol 08/14/17 09:00 09/09/17 08:44 Vancomycin/Sodium Chloride 250 ml @ 166.667 mls/hr Q8H IVPB 08/14/17 06:00 08/17/17 23:59 08/15/17 08:24 CAROL REBOLLEDO Aug 15, 2017 10:57
[2017-08-15 11:47] VITALS: BP 114/55
[2017-08-15] MEDS ORDERED: LORazepam 1mg tab ORAL PRN (14:00)
[2017-08-15] MEDS ORDERED: Vancomycin 750mg/NS 250ml 250 ML IVPB SCH (14:00)
--- NOTE | 2017-08-15 15:15 | Geriatric Medicine Prog Note ---
DATE: 08/14/2017 SUBJECTIVE: The patient is more comfortable today. OBJECTIVE: VITAL SIGNS: Blood pressure 138/50, pulse 100, respiratory rate 20, and temperature 97. RESPIRATORY: Clear. CARDIOVASCULAR: Regular. LABORATORY DATA: Glucose [phone]. ASSESSMENT: Diabetes mellitus, coming under control. PLAN: Continue . Joshua De La Paz M.D. DR: STACEY JOB#: [id number] CC:
--- NOTE | 2017-08-15 15:30 | Geriatric Medicine Prog Note ---
DATE: 08/15/2017 SUBJECTIVE: Glucose is starting to coming under control. OBJECTIVE: VITAL SIGNS: Blood pressure 138/58, pulse 100, respiratory rate 20, and temperature 97. RESPIRATORY: Clear. CARDIOVASCULAR: Regular. LABORATORY DATA: Glucose [phone]. ASSESSMENT: Diabetes mellitus, coming under control. PLAN: Starlix 60 mg t.i.d. before meals, NovoLog 8 units subcutaneously t.i.d. before meals, sliding scale NovoLog q.i.d. before meals, and 20 units q.12 h. Joshua De La Paz M.D. DR: STACEY JOB#: [id number] CC:
[2017-08-15 15:59] VITALS: BP 120/60
--- NOTE | 2017-08-15 19:47 | General Progress Note ---
Assessment/Plan Problem List: (1) Bipolar disorder ICD Codes: F31.9 - Bipolar disorder, unspecified SNOMED: 00808898 (2) Blood glucose elevated ICD Codes: R73.9 - Hyperglycemia, unspecified SNOMED: 90575216 (3) HIV disease ICD Codes: B20 - HIV disease SNOMED: 75753571 (4) Uncontrolled diabetes mellitus ICD Codes: E11.9 - Type 2 diabetes mellitus without complications SNOMED: 756064299 (5) Hx of BKA ICD Codes: Z89.519 - Acquired absence of unspecified leg below knee SNOMED: 224855862, 498740135 (6) Foreign body in left foot ICD Codes: S90.852A - Superficial foreign body, left foot, initial encounter SNOMED: 885001374 Assessment/Plan continue Starlix 60 mg ac tid continue Novolog 8 units ac tid continue Levemir 20 units bid continue NISS Subjective Allergies: Uncoded Allergies: POLLEN (Allergy, Unknown, 07/23/16) All Systems: reviewed and negative except above Subjective events noted - interval notes reviewed Objective Last 24 Hour Vital Signs Date Time Temp Pulse Resp B/P (MAP) Pulse Ox O2 Delivery O2 Flow Rate FiO2 08/15/17 15:59 98.0 75 20 120/60 98 08/15/17 11:47 97.5 69 19 114/55 99 08/15/17 08:43 97.3 71 20 145/75 100 08/15/17 04:00 97.5 66 20 147/73 100 08/15/17 00:00 97.0 69 20 138/58 100 08/14/17 20:00 97.0 72 20 125/57 100 08/14/17 20:00 Room Air Intake and Output 08/14/17 08/15/17 19:00 07:00 Intake Total 1043.334 ml 360 ml Output Total 1000 ml 1850 ml Balance 43.334 ml -1490 ml Intake Oral 600 ml 360 ml IV Total 443.334 ml Output Urine Total 1000 ml 1850 ml # Voids 6 # Bowel Movements 1 1 Laboratory Tests 08/15/17 05:50: White Blood Count 7.5, Red Blood Count 3.60L, Hemoglobin 10.5L, Hematocrit 31.8L , Mean Corpuscular Volume 89, Mean Corpuscular Hemoglobin 29.3, Mean Corpuscular Hemoglobin Concent 33.1, Red Cell Distribution Width 13.9, Platelet Count 376, Mean Platelet Volume 6.4L, Neutrophils (%) (Auto) 73.8, Lymphocytes ( %) (Auto) 19.9L, Monocytes (%) (Auto) 5.4, Eosinophils (%) (Auto) 0.3, Basophils (%) (Auto) 0.6, Sodium Level 132L, Potassium Level 3.2L, Chloride Level 96L, Carbon Dioxide Level 31, Anion Gap 5, Blood Urea Nitrogen 10, Creatinine 0.9, Estimat Glomerular Filtration Rate > 60, Glucose Level 257H, Calcium Level 9.2, Vancomycin Level Trough 17.7H, HIV-1 RNA (PCR) log10 Value [ Pending], HIV-1 RNA Ultraquantitative (PCR) [Pending] Height (Feet): 5 Height (Inches): 2.00 Weight (Pounds): 109 General Appearance: no apparent distress Neck: normal alignment Cardiovascular: regular rhythm Respiratory/Chest: lungs clear Abdomen: normal bowel sounds Objective Current Medications Medications (Trade) Dose Ordered Sig/Antoni Route PRN Reason Start Time Stop Time Status Last Admin Dose Admin Acetaminophen (Tylenol) 650 mg Q4H PRN ORAL Mild Pain (Pain Scale 1-3) 08/14/17 04:30 09/09/17 08:29 Acetaminophen (Tylenol) 650 mg Q4H PRN ORAL fever (Temp>100.5F) 08/14/17 04:30 09/09/17 08:29 Atorvastatin Calcium (Lipitor) 20 mg BEDTIME ORAL 08/14/17 21:00 09/09/17 20:59 08/14/17 21:15 Bisacodyl (Dulcolax) 10 mg DAILYPRN PRN RECTAL Constipation 08/14/17 09:00 09/09/17 08:29 Cefepime HCl 2 gm/ Sodium Chloride 110 ml @ 220 mls/hr EVERY 12 HOURS IV 08/15/17 21:00 08/18/17 20:59 Dextrose (Dextrose 50%) STAT PRN IV Hypoglycemia 08/14/17 12:15 09/13/17 12:14 Divalproex Sodium (Depakote) 500 mg EVERY 12 HOURS ORAL 08/15/17 21:00 09/14/17 20:59 Docusate Sodium (Colace) 100 mg EVERY 12 HOURS ORAL 08/14/17 09:00 09/09/17 08:59 08/14/17 09:08 Gabapentin (Neurontin) 300 mg THREE TIMES A DAY ORAL 08/14/17 09:00 09/09/17 09:59 08/15/17 17:24 Heparin Sodium (Porcine) (Heparin 5000 units/ml) 5,000 units EVERY 12 HOURS SUBQ 08/14/17 09:00 09/09/17 08:59 08/15/17 08:35 Insulin Aspart (NovoLOG) BEFORE MEALS AND HS SUBQ 08/14/17 16:30 09/13/17 16:29 08/15/17 17:21 Insulin Aspart (NovoLOG) 8 units NOVOTIAC SUBQ 08/14/17 16:50 09/13/17 16:49 08/15/17 17:22 Insulin Detemir (Levemir) 20 units EVERY 12 HOURS SUBQ 08/14/17 21:00 09/13/17 20:59 08/15/17 08:46 Iron Sucrose 100 mg/Sodium Chloride 60 ml @ 240 mls/hr BEDTIME IV 08/14/17 21:00 08/17/17 21:14 08/14/17 21:14 Lorazepam (Ativan) 2 mg Q6H PRN ORAL For Anxiety 08/15/17 14:00 08/22/17 13:59 Metronidazole (Flagyl) 500 mg Q8HR ORAL 08/15/17 14:00 08/20/17 13:59 08/15/17 14:26 Nateglinide (Starlix) 60 mg TIAC ORAL 08/14/17 06:30 09/11/17 07:59 08/15/17 17:18 Nicotine (Nicoderm) 1 patch Q24H TDERMAL 08/14/17 12:00 09/10/17 11:59 08/15/17 12:12 Ondansetron HCl (Zofran) 4 mg Q6H PRN IVP Nausea & Vomiting 08/14/17 02:30 09/09/17 08:29 08/15/17 01:52 Polyethylene Glycol (Miralax) 17 gm DAILYPRN PRN ORAL Constipation 08/14/17 08:30 09/09/17 08:29 Risperidone (RisperDAL) 6 mg QHS ORAL 08/15/17 21:00 09/14/17 20:59 Sitagliptin Phosphate (Januvia) 100 mg ACBREAKFAST ORAL 08/14/17 06:30 09/11/17 07:59 08/15/17 06:45 Tramadol HCl (Ultram) 50 mg Q4H PRN ORAL pain 4-10 08/14/17 04:30 08/17/17 08:29 08/14/17 09:08 Vancomycin HCl (Vanco rx to dose) 1 ea DAILY PRN MISC Per rx protocol 08/15/17 11:00 09/09/17 10:59 Vancomycin/Sodium Chloride 250 ml @ 166.667 mls/hr Q8H IVPB 08/15/17 20:00 08/20/17 21:00 Item Value Date Time Bedside Blood Glucose 157 mg/dl H 08/15/17 1722 Bedside Blood Glucose 214 mg/dl H 08/15/17 1207 Bedside Blood Glucose 184 mg/dl H 08/15/17 0846 Bedside Blood Glucose 235 mg/dl H 08/15/17 0650 LEONELA DIAMOND Aug 15, 2017 19:47
[2017-08-15 20:00] VITALS: BP 146/74
--- NOTE | 2017-08-15 21:00 | Consultation ---
DATE OF CONSULTATION: 08/14/2017 PSYCHIATRIC HISTORY AND PHYSICAL HISTORY OF PRESENT ILLNESS: This is a 52-year-old male with a history of schizoaffective disorder, depressed type, HIV and diabetic mellitus who has been admitted to the hospital due lower left extremity pain. The patient is in anxiety, agitation, mood lability, irritable mood and not following staff's direction, difficulty to redirect, has poor insight and judgment, is uncooperative. PAST PSYCHIATRIC HISTORY: Schizoaffective disorder, several psychiatric hospitalization and has been treated with mood stabilizers and antipsychotics. PAST MEDICAL HISTORY: Diabetic mellitus, depression, and HIV. ALLERGIES: Pollens. SUBSTANCE ABUSE HISTORY: No history of illicit drug use or alcohol. MENTAL STATUS EXAMINATION: The patient is alert and oriented times self, place, and situation he is in. Mood is labile. Affect is constricted, congruent with mood. Thought process is disorganized. Thought content, no suicidal or homicidal ideation. Insight and judgment non-existent. ASSESSMENT: AXIS I Schizoaffective disorder, bipolar type. AXIS II Deferred. AXIS III . AXIS IV Low. AXIS V Global assessment of functioning is 20. PLAN: 1. The patient will be started on risperidone 1 mg. 2. Continue . 3. We will continue follow and readjust the medications. Rosita Cintron M.D. DR: CHRIS JOB#: [id number] CC:
--- NOTE | 2017-08-15 21:15 | Progress Note ---
DATE: 08/15/2017 SUBJECTIVE: The patient has been uncooperative, has seeking behaviors, come to the nursing station apparently and through up at the station. During the evaluation today, he was more pleasant; however, his anxiety, agitation, poor insight and judgment increased his mental condition. He is perseverating on going out and smoking. MENTAL STATUS EXAMINATION: The patient is alert and oriented times self, place, situation, and time. Mood is irritable and anxious. Affect is constricted, congruent with mood. Thought process is concrete. Thought content, no suicidal or homicidal ideation. No delusions. No AVH. Insight and judgment is impaired. ASSESSMENT: AXIS I Schizoaffective disorder, bipolar type. AXIS II Deferred. AXIS III As above. AXIS IV Low. AXIS V Global assessment of functioning is 20. PLAN: 1. We will continue the current medication. Stop the Lexapro and start the patient on Depakote. 2. Increase the risperidone to 6 mg at bedtime. Rosita Cintron M.D. DR: CHRIS JOB#: [id number] CC:
[2017-08-15] MEDS: Depakote 500mg tab ORAL SCH (21:36)
--- NOTE | 2017-08-15 22:31 | General Progress Note ---
Assessment/Plan Problem List: (1) L 2nd metatarsal head ulcer (2) Foreign body in left foot with infection ICD Codes: S90.852A - Superficial foreign body, left foot, initial encounter; L08.9 - Local infection of the skin and subcutaneous tissue, unspecified SNOMED: 44741693 Qualifiers: Qualified Codes: S90.852A - Superficial foreign body, left foot, initial encounter; L08.9 - Local infection of the skin and subcutaneous tissue, unspecified (3) Sepsis ICD Codes: A41.9 - Sepsis, unspecified organism SNOMED: 88462551 (4) Medical non-compliance ICD Codes: Z91.19 - Patient's noncompliance with other medical treatment and regimen SNOMED: 907019845 (5) Uncontrolled diabetes mellitus ICD Codes: E11.9 - Type 2 diabetes mellitus without complications SNOMED: 403024345 (6) HIV (human immunodeficiency virus infection) ICD Codes: B20 - Human immunodeficiency virus [HIV] disease SNOMED: 99706749 (7) Hx of right BKA ICD Codes: Z89.511 - Acquired absence of right leg below knee SNOMED: 509327316, 049310972, 025916429 (8) tobacco abuse (9) Bipolar disorder with depression ICD Codes: F31.30 - Bipolar disorder, current episode depressed, mild or moderate severity, unspecified SNOMED: 52006635 (10) Hyponatremia ICD Codes: E87.1 - Hypo-osmolality and hyponatremia SNOMED: 90282561 (11) Hyperglycemia ICD Codes: R73.9 - Hyperglycemia, unspecified SNOMED: 25537751 Status: stable Assessment/Plan ID and surgery consulted Empiric vanco and cefepime + flagyl--plan for 10 days course per ID, currently day 6 F/u cultures--ngtd Trend CBC MRI L foot ordered to eval for osteo --> shows needle in foot, R 2nd metatarsal head ulcer, but no e/o abscess or osteo. D/w surgery who prefers to avoid removal given concern for creating large wound. Will monitor for now Hold HAART as pt is noncompliant and states that he is not currently taking F/u CD4 count-->508 F/u viral load Endo consulted Levemir 20U BID Aspart 8U TID AC SSI Starlix + januvia started F/u A1C-->14.8 Nicotine patch ordered per pt request Diabetes Nurse on smoking cessation Pain control, bowel regimen Supportive care PT eval Pt amenable to d/c to SNF at this time. CM consulted. Awaiting SNF bed. If unable to place at SNF, then consider recuperative fci w/ home health Psych consulted DVT Prophylaxis: SCD, HSQ Code Status: Full Hospital Classification Declaration: Based on this initial evaluation, and depending on the patient's clinical course, I anticipate that this patient will require hospitalization for 1-2 days for L foot ulcers w/ infection, possible foreign body in L foot, and close respiratory/hemodynamic monitoring. Disposition: Once the patient is stable to leave the hospital, I anticipate the patient will likely be discharged to the following environment: SNF Discussed with patient/family, nursing staff, SW/CM, ID, surgery regarding clinical status, treatment course, and disposition planning. D/w ID re abx plan. D/w endo re BG control, insulin adjustment Time of note may not reflect time of encounter. Subjective Date patient seen: Aug 15, 2017 Time patient seen: 11:00 ROS Limited/Unobtainable: No Constitutional: Reports: no symptoms HEENT: Reports: no symptoms Cardiovascular: Reports: no symptoms Respiratory: Reports: no symptoms Gastrointestinal/Abdominal: Reports: no symptoms Genitourinary: Reports: no symptoms Neurologic/Psychiatric: Reports: no symptoms Endocrine: Reports: no symptoms Hematologic/Lymphatic: Reports: no symptoms Allergies: Uncoded Allergies: POLLEN (Allergy, Unknown, 07/23/16) All Systems: reviewed and negative except above Subjective No acute o/n events MRI shows needle in foot. D/w surgery and prefers to avoid removal given concern for creating large wound. WBC normalized Afebrile Pt states pain controlled. Denies f/c, n/v, d/c, chest pain, SOB. C/o anxiety Objective Last 24 Hour Vital Signs Date Time Temp Pulse Resp B/P (MAP) Pulse Ox O2 Delivery O2 Flow Rate FiO2 08/15/17 20:00 97.7 89 20 146/74 97 08/15/17 15:59 98.0 75 20 120/60 98 08/15/17 11:47 97.5 69 19 114/55 99 08/15/17 08:43 97.3 71 20 145/75 100 08/15/17 04:00 97.5 66 20 147/73 100 08/15/17 00:00 97.0 69 20 138/58 100 Intake and Output 08/14/17 08/15/17 19:00 07:00 Intake Total 1043.334 ml 360 ml Output Total 1000 ml 1850 ml Balance 43.334 ml -1490 ml Intake Oral 600 ml 360 ml IV Total 443.334 ml Output Urine Total 1000 ml 1850 ml # Voids 6 # Bowel Movements 1 1 Laboratory Tests 08/15/17 05:50: White Blood Count 7.5, Red Blood Count 3.60L, Hemoglobin 10.5L, Hematocrit 31.8L , Mean Corpuscular Volume 89, Mean Corpuscular Hemoglobin 29.3, Mean Corpuscular Hemoglobin Concent 33.1, Red Cell Distribution Width 13.9, Platelet Count 376, Mean Platelet Volume 6.4L, Neutrophils (%) (Auto) 73.8, Lymphocytes ( %) (Auto) 19.9L, Monocytes (%) (Auto) 5.4, Eosinophils (%) (Auto) 0.3, Basophils (%) (Auto) 0.6, Sodium Level 132L, Potassium Level 3.2L, Chloride Level 96L, Carbon Dioxide Level 31, Anion Gap 5, Blood Urea Nitrogen 10, Creatinine 0.9, Estimat Glomerular Filtration Rate > 60, Glucose Level 257H, Calcium Level 9.2, Vancomycin Level Trough 17.7H, HIV-1 RNA (PCR) log10 Value [ Pending], HIV-1 RNA Ultraquantitative (PCR) [Pending] Height (Feet): 5 Height (Inches): 2.00 Weight (Pounds): 109 Objective General: alert, cooperative, no distress, appears stated age Head: normocephalic, without obvious abnormality, atraumatic Eyes: conjunctivae/corneas clear. PERRL, EOM's intact Throat: lips, mucosa, and tongue normal. MMM Neck: supple, symmetrical, trachea midline, and no JVD Lungs: clear to auscultation bilaterally Heart: regular rate and rhythm, S1, S2 normal, no murmur, click, rub or gallop Abdomen: soft, non-tender, non-distended, bowel sounds normal; no masses or organomegaly Extremities: +R BKA c/d/i, +multiple ulcers on plantar aspect--no drainage noted Neurologic: grossly normal, no focal deficits Gage Hermosillo M.D. Aug 15, 2017 22:30
[2017-08-15] MEDS: Iron Sucrose 100 MG in NS 55 ML IV SCH (23:14)
[2017-08-15] MEDS: Cefepime HCl 2 GM in NS 110 ML IV SCH (23:46)
[2017-08-16] VITALS: BP 100/42
[2017-08-16] MEDS: Vancomycin 750mg/NS 250ml 250 ML IVPB SCH ×2 (03:57→11:55)
[2017-08-16 04:00] VITALS: BP 127/58
[2017-08-16] MEDS: Nateglinide 60mg tab ORAL SCH ×2 (06:04→11:52)
[2017-08-16] MEDS: metroNIDAZOLE 500mg tab ORAL SCH ×2 (06:04→13:06)
[2017-08-16] MEDS: NovoLOG Insulin Flexpen SUBQ SCH ×4 (06:06→11:55)
[2017-08-16 08:00] VITALS: BP 101/57
[2017-08-16] MEDS: Docusate 100mg cap ORAL SCH (10:20)
[2017-08-16] MEDS: Depakote 500mg tab ORAL SCH (10:20)
[2017-08-16] MEDS: Heparin 5000 units/ml inj SUBQ SCH (10:20)
[2017-08-16] MEDS: Levemir Flexpen SUBQ SCH (10:25)
[2017-08-16] MEDS: Cefepime HCl 2 GM in NS 110 ML IV SCH (10:31)
[2017-08-16 12:00] VITALS: BP 137/74
[2017-08-16] MEDS ORDERED: CEFEPIME-D2 GM/50 ML IVPB (13:53)
[2017-08-16] MEDS ORDERED: VANCOMYCIN1 GM/2502 IVPB (13:53)
--- NOTE | 2017-08-16 13:54 | Discharge Summary ---
Discharge Summary Hospital Course Date of Admission Aug 10, 2017 at 05:00 Date of Discharge 08/16/17 Admitting Diagnosis Sepsis, Foreign body in left foot with infection Reason for Hospitalization: Sepsis HPI 52yo male with pmh of uncontrolled DM2, s/p R BKA, bipolar d/o, depression, HIV (not on HAART), medical noncompliance who presents with LLE pain ofelia of L foot. Pt poor historian. He states pain has been going on for some time now but recently worsening. He does not recall a specific injury or traumatic event. He does bare weight on that leg barefoot often and gets around in wheelchair. Denies f/c, n/v, d/c, chest pain, SOB, abd pain. Reports noncompliance with medications, stating he could not get refills. In ER, pt noted to have multiple L foot wounds. X-ray foot concerning for foreign body in L plantar aspect. Labs showed WBC 21.9K. Pt given vanco and cefepime in ED. Pt also with hypergylcemia to 438. No e/o DKA. Given regular insulin 10U IV. Consultations Infectious disease, Surgery Hospital Course Pt was admitted and seen by surgery and ID. He was continued on empiric antibiotics. MRI L foot showed shows needle in foot, R 2nd metatarsal head ulcer , but no e/o abscess or osteomyelitis. After discussion with surgery, it was decided to avoid removal for now given concern for creating large wound and pt is currently not in discomfort. Pt's insulin regimen was titrate to achieve glycemic control. Pt was seen by PT/OT who recommended rehab. Pt was discharged to SNF for continued IV antibiotics and PT/OT. He will complete a 10 day course of vanco, cefepime and flagyl per ID. Discharge physical exam: General: alert, cooperative, no distress, appears stated age Head: normocephalic, without obvious abnormality, atraumatic Eyes: conjunctivae/corneas clear. PERRL, EOM's intact Throat: lips, mucosa, and tongue normal. MMM Neck: supple, symmetrical, trachea midline, and no JVD Lungs: clear to auscultation bilaterally Heart: regular rate and rhythm, S1, S2 normal, no murmur, click, rub or gallop Abdomen: soft, non-tender, non-distended, bowel sounds normal; no masses or organomegaly Extremities: +R BKA c/d/i, +multiple ulcers on plantar aspect--no drainage noted Neurologic: grossly normal, no focal deficits Discharge diagnoses: (1) L 2nd metatarsal head ulcer (2) Foreign body in left foot with infection ICD Codes: S90.852A - Superficial foreign body, left foot, initial encounter; L08.9 - Local infection of the skin and subcutaneous tissue, unspecified SNOMED: 33970065 Qualifiers: Qualified Codes: S90.852A - Superficial foreign body, left foot, initial encounter; L08.9 - Local infection of the skin and subcutaneous tissue, unspecified (3) Sepsis ICD Codes: A41.9 - Sepsis, unspecified organism SNOMED: 79369980 (4) Medical non-compliance ICD Codes: Z91.19 - Patient's noncompliance with other medical treatment and regimen SNOMED: 254472042 (5) Uncontrolled diabetes mellitus ICD Codes: E11.9 - Type 2 diabetes mellitus without complications SNOMED: 506552918 (6) HIV (human immunodeficiency virus infection) ICD Codes: B20 - Human immunodeficiency virus [HIV] disease SNOMED: 51686578 (7) Hx of right BKA ICD Codes: Z89.511 - Acquired absence of right leg below knee SNOMED: 317114759, 152057579, 257996680 (8) Tobacco abuse (9) Bipolar disorder with depression ICD Codes: F31.30 - Bipolar disorder, current episode depressed, mild or moderate severity, unspecified SNOMED: 18769021 (10) Hyponatremia ICD Codes: E87.1 - Hypo-osmolality and hyponatremia SNOMED: 09162076 (11) Hyperglycemia ICD Codes: R73.9 - Hyperglycemia, unspecified SNOMED: 92169615 Discharge Medications New Medications: Cefepime Hcl/D5w (Cefepime-Dextrose 2 Gm/50 Ml) 2 Gm/50 Ml Piggyback 2 GM IVPB EVERY 12 HOURS for 4 Days, BAG Vancomycin Hcl/D5w (Vancomycin-D5w 1 G/250 Ml) 1 Gm/250 Ml Plast..bag 750 MG IVPB Q8HR for 4 Days, BAG Insulin Aspart (Novolog Flexpen) 100 Unit/1 Ml Insuln.pen 0 UNITS SUBQ BEFORE MEALS AND HS for 30 Days, EA Insulin Aspart (Novolog Flexpen) 100 Unit/1 Ml Insuln.pen 8 UNITS SUBQ NOVOTIAC for 30 Days, EA Insulin Detemir (Levemir Flexpen) 100 Unit/1 Ml Insuln.pen 20 UNITS SUBQ EVERY 12 HOURS for 30 Days, EA Metronidazole* (Flagyl*) 500 Mg Tablet 500 MG ORAL Q8HR for 7 Days, TAB Nateglinide* (Starlix*) 60 Mg Tablet 60 MG ORAL TIAC for 30 Days, TAB Nicotine (Nicotine Patch) 1 Each Patch.td24 1 PATCH TDERMAL Q24H for 30 Days, PATCH Sitagliptin (Januvia) 100 Mg Tablet 100 MG ORAL ACBREAKFAST for 30 Days, TAB [[facility] pharmacy to dose] () 1 EA MISC 1 EA MISC DAILY PRN for 7 Days Continued Medications: Atorvastatin Calcium* (Lipitor*) 20 Mg Tablet 20 MG ORAL BEDTIME, TAB Escitalopram Oxalate* (Lexapro*) 10 Mg Tablet 10 MG ORAL DAILY, TAB Gabapentin (Neurontin) 300 Mg Cap 300 MG ORAL THREE TIMES A DAY, #15 CAP 0 Refills Risperidone* (Risperdal*) 2 Mg Tablet 4 MG ORAL QHS, #30 TAB 0 Refills Tramadol Hcl* (Ultram*) 50 Mg Tablet 50 MG ORAL Q12HR PRN for For Pain, #30 TAB 0 Refills Discontinued Medications: Insulin Glargine (Lantus) 100 Unit/1 Ml Insuln.pen 22 UNITS SUBQ BEDTIME, #1 EA 0 Refills Levofloxacin (Levofloxacin*) 500 Mg Tablet 750 MG ORAL DAILY, TAB Discharge Condition Upon Discharge: stable Discharge Disposition Patient was discharged to SNF/Subacute Facility(03) Discharge Diagnoses: Gage Hermosillo M.D. Aug 16, 2017 13:53
[2017-08-16] MEDS ORDERED: Tubing IV Secondary IV ONE (15:29)
[2017-08-16] MEDS ORDERED: NS 275ml ONE (15:29)
--- NOTE | 2017-08-16 22:25 | General Progress Note ---
Assessment/Plan Status: not improved, unchanged Subjective Date patient seen: Aug 13, 2017 Neurologic/Psychiatric: Reports: anxiety, depressed, emotional problems Allergies: Uncoded Allergies: POLLEN (Allergy, Unknown, 07/23/16) Objective Last 24 Hour Vital Signs Date Time Temp Pulse Resp B/P (MAP) Pulse Ox O2 Delivery O2 Flow Rate FiO2 08/16/17 12:00 97.7 82 20 137/74 100 08/16/17 08:00 98.0 80 20 101/57 95 08/16/17 04:00 97.3 82 20 127/58 99 08/16/17 00:00 97.7 79 20 100/42 100 Intake and Output 08/15/17 08/16/17 19:00 07:00 Intake Total 810.000 ml 670.000 ml Output Total 600 ml 550 ml Balance 210.000 ml 120.000 ml Intake Oral 560 ml IV Total 250.000 ml 670.000 ml Output Urine Total 600 ml 550 ml # Voids 2 # Bowel Movements 1 Height (Feet): 5 Height (Inches): 2.00 Weight (Pounds): 109 General Appearance: no apparent distress, alert Neurologic: alert, oriented x 3, responsive, depressed affect Rosita Cintron M.D. Aug 16, 2017 22:25
--- NOTE | 2017-08-17 01:45 | Progress Note ---
DATE: 08/16/2017 SUBJECTIVE: The patient is presenting with anxiety, agitation, depressed mood, anhedonia, worthlessness, hopelessness, and decreased energy. MENTAL STATUS EXAMINATION: The patient is alert and oriented times self, place, and situation he is in. Mood is depressed. Affect is constricted, congruent with mood. Thought process is concrete. Thought content, no suicidal or homicidal ideations. ASSESSMENT: Agitation. PLAN: We will continue the current medication. Rosita Cintron M.D. DR: MASHA JOB#: [id number] CC:
== END 2017-08-16 15:30 | DRG 975 ==
LOC: EMR 20:59 → 2W 08-10 05:00 → EDBEDREQ 08-10 07:58 → 2E 08-11 15:36 → 4E 08-13 23:48
DX: A41.9 Sepsis, unspecified organism (principal); B20 Human immunodeficiency virus [HIV] disease; L03.116 Cellulitis of left lower limb; E11.40 Type 2 diabetes mellitus with diabetic neuropathy, unspecified; E11.51 Type 2 diabetes mellitus with diabetic peripheral angiopathy without gangrene; E87.1 Hypo-osmolality and hyponatremia; M86.9 Osteomyelitis, unspecified; F31.30 Bipolar disorder, current episode depressed, mild or moderate severity, unspecified; L97.529 Non-pressure chronic ulcer of other part of left foot with unspecified severity; S91.322A Laceration with foreign body, left foot, initial encounter; E11.9 Type 2 diabetes mellitus without complications; E11.65 Type 2 diabetes mellitus with hyperglycemia; Z89.611 Acquired absence of right leg above knee; Z91.19 Patient's noncompliance with other medical treatment and regimen; Z79.4 Long term (current) use of insulin; F17.210 Nicotine dependence, cigarettes, uncomplicated
CPT/HCPCS: 36415; 36600; 71045; 80048; 80053; 80202; 82009; 82728; 82803; 82962; 83036; 83540; 83550; 83735; 84100; 85007; 85025; 85651; 86360; 87040; 87081; 87536; 93005; 99285; J1815; J2405; J8499; S5561

== ENCOUNTER 2018-01-25 03:39 | Emergency (ER) | payer MEDICARE, OTHER ==
[~2018-01-25] VITALS: Ht 157.5 cm; Wt 51.7 kg
[~2018-01-25 03:39] MED LIST changes: +CEFEPIME-D2 GM/50 ML IVPB; +FLAGYL500 MG ORAL; +JANUVIA100 MG ORAL; +LEVOFLOXACIN500 MG ORAL; +NICODERM 21MG/241 EA TDERMAL; +STARLIX60 MG ORAL; +VANCOMYCIN1 GM/2502 IVPB; +Vanco pharmacy to dose MISC
[2018-01-25] MEDS ORDERED: LANTUS SOL100 UNIT/1 SUBQ ×2 (03:49→04:02)
[2018-01-25 03:53] VITALS: BP 111/63
[2018-01-25] MEDS ORDERED: NOVOLOG100 UNIT/3 SUBQ (04:02)
--- NOTE | 2018-01-25 04:02 | Emergency Room Report ---
History of Present Illness General Chief Complaint: Medication Refill Source: Patient, Medical Record Present Illness HPI This is a 52-year-old male who has insulin-dependent diabetes. He came in because he just left a alf in [facility]. He left AMA. He left his dressing supplies there. He is out of his insulin for 1 day. Denies suicidal thoughts homicidal thought. He presents with chief complaint of needing his insulin. No other issue. Not suicidal or homicidal. This is a recurrent issue with him. He would sign out AMA and be homeless for a while. As a result, his diabetes will be out of control and he will admitted for infection and sent to a alf. After well, he will sign out AMA. Allergies: Uncoded Allergies: POLLEN (Allergy, Unknown, 07/23/16) Patient History Past Medical History: see triage record, old chart reviewed, DM Past Surgical History: other - rt bka Pertinent Family History: none Social History: Denies: smoking Immunizations: other Reviewed Nursing Documentation: PMH: Agreed; PSxH: Agreed Nursing Documentation-PMH Hx Cardiac Problems: No - HIV + Hx Hypertension: Yes Hx Pacemaker: No Hx Asthma: No Hx COPD: No Hx Diabetes: Yes Hx Cancer: No Hx Gastrointestinal Problems: No Hx Dialysis: No History Of Psychiatric Problem: Yes - schizoeffective, manic depression Hx Neurological Problems: No Hx Cerebrovascular Accident: No Hx Seizures: No Review of Systems Eye: Denies: eye pain, blurred vision ENT: Denies: ear pain, nose congestion, throat swelling Respiratory: Denies: cough, shortness of breath Cardiovascular: Denies: chest pain, palpitations Gastrointestinal: Denies: abdominal pain, diarrhea, nausea, vomiting Musculoskeletal: Denies: back pain, joint pain Skin: Denies: rash Neurological: Denies: headache, numbness Endocrine: Denies: increased thirst, increased urine Hematologic/Lymphatic: Denies: easy bruising All Other Systems: negative except mentioned in HPI Physical Exam Vital Signs Date Time Temp Pulse Resp B/P (MAP) Pulse Ox O2 Delivery O2 Flow Rate FiO2 01/25/18 03:46 97.8 79 14 111/63 97 Room Air 97.9 vitals normal Sp02 EP Interpretation: reviewed, normal General Appearance: well appearing, no apparent distress, alert Head: normocephalic, atraumatic Eyes: bilateral eye PERRL, bilateral eye EOMI ENT: hearing grossly normal, normal pharynx Neck: full range of motion, supple, no meningismus Respiratory: chest non-tender, lungs clear, normal breath sounds Cardiovascular #1: regular rate, rhythm, no murmur Gastrointestinal: normal bowel sounds, non tender, no mass, no organomegaly, no bruit, non-distended Musculoskeletal: back normal, other - Right BKA Neurologic: alert, oriented x3 Psychiatric: mood/affect normal Skin: warm/dry Medical Decision Making Diagnostic Impression: Primary Impression: Encounter for medication refill Additional Impression: Hyperglycemia ER Course Patient here for refill on his medication. No other issue. Not in DKA. We'll discharge home. Not suicidal or homicidal. Last Vital Signs Date Time Temp Pulse Resp B/P (MAP) Pulse Ox O2 Delivery O2 Flow Rate FiO2 01/25/18 03:53 97.9 14 111/63 97 Room Air 97.9 01/25/18 03:46 79 Status: unchanged Disposition: HOME, SELF-CARE Condition: Stable Scripts Insulin Glargine (LANTUS) 100 Unit/1 Ml Insuln.pen 22 UNITS SUBQ BEDTIME, #1 EA 0 Refills Prov: CASI MARK M.D. 01/25/18 Insulin Aspart* (NOVOLOG*) 100 Unit/1 Ml Insuln.pen 12 UNITS SUBQ BID, #1 EA 0 Refills Prov: CASI MARK M.D. 01/25/18 Patient Instructions: Medicine Refill at the Emergency Department Additional Instructions: Follow-up with your doctor in 7 days. Return if worse. CASI MARK M.D. Jan 25, 2018 04:02
[2018-01-25 04:22] VITALS: BP 111/63
== END 2018-01-25 04:29 | disposition home or self-care (01) ==
LOC: EMR 04:00
DX: E11.65 Type 2 diabetes mellitus with hyperglycemia (principal); Z89.511 Acquired absence of right leg below knee; B20 Human immunodeficiency virus [HIV] disease; I10 Essential (primary) hypertension; F32.9 Major depressive disorder, single episode, unspecified; F25.9 Schizoaffective disorder, unspecified
CPT/HCPCS: 99284

== ENCOUNTER 2019-08-15 14:53 | Emergency (ER) | payer OTHER ==
[~2019-08-15] VITALS: Ht 157.5 cm; Wt 43.5 kg
[~2019-08-15 14:53] MED LIST changes: +ABILIFY2 MG ORAL; +ATRIPLA TABLET1 EAC1 ORAL
[2019-08-15] MEDS ORDERED: Omnipaque-300 100ml vial INJ PRN (15:15)
[2019-08-15 15:19] VITALS: BP 153/90
--- NOTE | 2019-08-15 15:19 | NUR ---
ED Nurse Note: PT FROM [place] CAME IN WITH HIS WHEEL CHAIR DUE TO DIARRHEA X 1 MONTH AND HAS AN ABSCESS ON HIS SACRUM. NOTED SOFT BROWN STOOLS ALL OVER THE FLOOR AND PATIENT'S CLOTHES. AAO X4 NON AMBULATORY WITH NON LABORED BREATHING. ALSO NOTED BELOW RIGHT KNEE AMPUTATION. PT IS ALSO OBSERVED TO HAVE MULTIPLE WOUNDS ON LOWER LEGS.
--- NOTE | 2019-08-15 15:27 | Emergency Room Report ---
History of Present Illness General Chief Complaint: General Complaint Source: Patient Present Illness HPI 54-year-old male history of HIV off his medications presents with a month of diarrhea, sacral pain, subjective fever/chills, not taking his antiretrovirals no known aggravating relieving factors severity is moderate, constant patient presents for evaluation Allergies: Uncoded Allergies: POLLEN (Allergy, Unknown, 07/23/16) Patient History Past Medical History: see triage record Reviewed Nursing Documentation: PMH: Agreed; PSxH: Agreed Nursing Documentation-PMH Past Medical History: No History, Except For Hx Hypertension: Yes Hx Pacemaker: No Hx Asthma: No Hx COPD: No Hx Diabetes: Yes - TYPE 2 Hx Cancer: No Hx Gastrointestinal Problems: No Hx Dialysis: No Hx Neurological Problems: No Hx Cerebrovascular Accident: No Hx Seizures: No Review of Systems All Other Systems: negative except mentioned in HPI Physical Exam Vital Signs Date Time Temp Pulse Resp B/P (MAP) Pulse Ox O2 Delivery O2 Flow Rate FiO2 08/15/19 15:09 97.9 82 19 122/74 (90) 99 Room Air Sp02 EP Interpretation: reviewed, normal General Appearance: alert, cachetic, Chronically Ill Head: normocephalic, atraumatic Eyes: bilateral eye PERRL, bilateral eye EOMI ENT: uvula midline, dry mucus membranes Neck: supple, thyroid normal, supple/symm/no masses Respiratory: lungs clear, no respiratory distress, no retraction, no accessory muscle use Cardiovascular #1: normal peripheral pulses, regular rate, rhythm, no edema, no gallop, no murmur Gastrointestinal: non tender, soft, no guarding, no rebound Musculoskeletal: normal inspection Neurologic: alert, oriented x3 Psychiatric: mood/affect normal Skin: no rash, other - Decubitus ulcer on sacrum covered in feces Procedures Critical Care Time Critical Care Time Given the critical condition in which the patient arrived, the patient was immediately assessed by myself and the nurse, and cardiac monitoring initiated due to the potential for rapid decompensation of the patient's clinical condition. During the course of the patient's stay, I spent a considerable amount of time at the bedside performing serial re-evaluations of the patient's hemodynamic and clinical status because of the recognized potential threat to life or limb in this condition. I then had a chance to review not only all of the available current laboratory and radiographic studies obtained today, but I also reviewed old records available to me at the time. 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 Sequential vital signs were obtained. Critical Care time of 33 minutes was performed exclusive of billable procedures. Insulin, electrolyte management, antibiotics, fluid resuscitation Medical Decision Making Diagnostic Impression: Primary Impression: Infected decubitus ulcer Qualified Codes: L89.90 - Pressure ulcer of unspecified site, unspecified stage; L08.9 - Local infection of the skin and subcutaneous tissue, unspecified Additional Impressions: Colitis Immunocompromised state ER Course 54-year-old male history of HIV, currently not on HAART, presents with ulcers on the sacrum, diarrhea Differential diagnosis includes colitis, infected decubitus ulcer We will start broad-spectrum antibiotics Patient with an elevated glucose, 10 units of insulin was given as well as potassium repletion patient with a slightly elevated lactic acid fluid rehydration started Patient accepted by Dr. Munoz 5:10pm Patient to be transferred to outside hospital Laboratory Tests Test 08/15/19 15:35 08/15/19 16:30 White Blood Count 12.9 K/UL (4.8-10.8) H Red Blood Count 3.77 M/UL (4.70-6.10) L Hemoglobin 11.3 G/DL (14.2-18.0) L Hematocrit 34.3 % (42.0-52.0) L Mean Corpuscular Volume 91 FL (80-99) Mean Corpuscular Hemoglobin 29.9 PG (27.0-31.0) Mean Corpuscular Hemoglobin Concent 32.9 G/DL (32.0-36.0) Red Cell Distribution Width 14.6 % (11.6-14.8) Platelet Count 312 K/UL (150-450) Mean Platelet Volume 7.2 FL (6.5-10.1) Neutrophils (%) (Auto) % (45.0-75.0) Lymphocytes (%) (Auto) % (20.0-45.0) Monocytes (%) (Auto) % (1.0-10.0) Eosinophils (%) (Auto) % (0.0-3.0) Basophils (%) (Auto) % (0.0-2.0) Differential Total Cells Counted 100 Neutrophils % (Manual) 85 % (45-75) H Lymphocytes % (Manual) 12 % (20-45) L Monocytes % (Manual) 3 % (1-10) Eosinophils % (Manual) 0 % (0-3) Basophils % (Manual) 0 % (0-2) Band Neutrophils 0 % (0-8) Platelet Estimate Adequate Platelet Morphology Normal Red Blood Cell Morphology Normal Erythrocyte Sedimentation Rate 110 MM/HR (0-20) H Prothrombin Time 10.0 SEC (9.30-11.50) Prothrombin Time INR 0.9 (0.9-1.1) Activated Partial Thromboplast Time 28 SEC (23-33) Sodium Level 133 MMOL/L (136-145) L Potassium Level 3.5 MMOL/L (3.5-5.1) Chloride Level 93 MMOL/L (98-107) L Carbon Dioxide Level 29 MMOL/L (21-32) Anion Gap 11 mmol/L (5-15) Blood Urea Nitrogen 26 mg/dL (7-18) H Creatinine 1.1 MG/DL (0.55-1.30) Estimate Glomerular Filtration Rate > 60 mL/min (>60) Glucose Level 894 MG/DL (74-106) *H Lactic Acid Level 2.20 mmol/L (0.4-2.0) H Calcium Level 9.3 MG/DL (8.5-10.1) Phosphorus Level 4.0 MG/DL (2.5-4.9) Magnesium Level 2.2 MG/DL (1.8-2.4) Total Bilirubin 0.4 MG/DL (0.2-1.0) Aspartate Amino Transferase (AST) 40 U/L (15-37) H Alanine Aminotransferase (ALT) 126 U/L (12-78) H Alkaline Phosphatase 572 U/L (46-116) H Total Creatine Kinase 507 U/L (26-308) H Creatine Kinase MB 10.5 NG/ML (0.0-3.6) H Creatine Kinase MB Relative Index 2.0 Troponin I 0.000 ng/mL (0.000-0.056) C-Reactive Protein, Quantitative 12.8 mg/dL (0.00-0.90) H Pro-B-Type Natriuretic Peptide 680 pg/mL (0-125) H Total Protein 8.7 G/DL (6.4-8.2) H Albumin 2.6 G/DL (3.4-5.0) L Globulin 6.1 g/dL Albumin/Globulin Ratio 0.4 (1.0-2.7) L Lipase 231 U/L (73-393) Acetone Level Negative (NEGATIVE) Urine Color Pale yellow Urine Appearance Clear Urine pH 6 (4.5-8.0) Urine Specific [place] 1.010 (1.005-1.035) Urine Protein 2+ (NEGATIVE) H Urine Glucose (UA) 4+ (NEGATIVE) H Urine Ketones Negative (NEGATIVE) Urine Blood 4+ (NEGATIVE) H Urine Nitrite Negative (NEGATIVE) Urine Bilirubin Negative (NEGATIVE) Urine Urobilinogen Normal MG/DL (0.0-1.0) Urine Leukocyte Esterase Negative (NEGATIVE) Urine RBC 10-15 /HPF (0 - 0) H Urine WBC 0-2 /HPF (0 - 0) Urine Squamous Epithelial Cells None /LPF (NONE/OCC) Urine Bacteria Few /HPF (NONE) Urine Yeast Few /HPF (NONE) H EKG Diagnostic Results EKG Time: 15:53 EP Interpretation: NSR, rate 79, QTc 460, no acute ST elevations, left axis deviation Rhythm Strip Diag. Results Rhythm Strip Time: 15:54 EP Interpretation: yes Rate: 81 Rhythm: NSR, no PVC's, no ectopy Chest X-Ray Diagnostic Results Chest X-Ray Diagnostic Results : Chest X-Ray Ordered: Yes # of Views/Limited/Complete: 1 View Indication: Other - Weakness EP Interpretation: Yes Interpretation: no consolidation, no effusion, no pneumothorax, no acute cardiopulmonary disease Impression: No acute disease Electronically Signed by: Zain Gallegos MD CT/MRI/US Diagnostic Results CT/MRI/US Diagnostic Results : Impression Preliminary Findings Only See Final Report For Complete Findings CT ABDOMEN & PELVIS With Contrast: Mild bilateral hydroureteronephrosis may be related to distention of the urinary bladder. No obstructing ureteral calculi. Moderate colonic stool is suggestive of constipation. Coarse pancreatic calcifications are compatible with the sequela of chronic pancreatitis. No loculated fluid collection. No free air or appendicitis. Spleen, gallbladder, and liver are unremarkable. Nonspecific dependent ground glass opacity in the left lower lobe may be related to atelectasis or an infectious or inflammatory process. Radiologist: Dana Knott MD Study ready at 17:23 and initial results transmitted at 18:14 Last Vital Signs Date Time Temp Pulse Resp B/P (MAP) Pulse Ox O2 Delivery O2 Flow Rate FiO2 08/15/19 15:09 97.9 82 19 122/74 (90) 99 Room Air Disposition: XFER SHT-TRM HOSP Condition: Serious Zain Gallegos MD Aug 15, 2019 15:27
[2019-08-15] MEDS ORDERED: Vancomycin 1 GM in NS 275 ML IVPB ONE (15:30)
[2019-08-15] MEDS ORDERED: Piperacillin/Tazobactam 3.375 GM in NS 110 ML IVPB ONE (15:30)
--- NOTE | 2019-08-15 15:40 | NUR ---
ED Nurse Note: COLLECTED BLOOD THEN SENT.
[2019-08-15 15:54] LABS: HEMATOCRIT 34.3 % (42.0-52.0); HEMOGLOBIN 11.3 G/DL (14.2-18.0); MEAN CORPUSCULAR VOLUME 91 FL (80-99); PLATELET COUNT 312 K/UL (150-450); RED BLOOD COUNT 3.77 M/UL (4.70-6.10); RED CELL DISTRIBUTION WIDTH 14.6 % (11.6-14.8); WHITE BLOOD COUNT 12.9 K/UL (4.8-10.8)
[2019-08-15 16:01] LABS: INR 0.9 (0.9-1.1)
[2019-08-15] MEDS ORDERED: Zosyn 3.375gm inj ONE (16:02)
[2019-08-15 16:19] LABS: ANION GAP 11 mmol/L (5-15); BLOOD UREA NITROGEN 26 mg/dL (7-18); CALCIUM 9.3 MG/DL (8.5-10.1); CARBON DIOXIDE 29 MMOL/L (21-32); CHLORIDE 93 MMOL/L (98-107); CREATININE 1.1 MG/DL (0.55-1.30); POTASSIUM 3.5 MMOL/L (3.5-5.1); SODIUM 133 MMOL/L (136-145)
[2019-08-15 16:31] LABS: ALANINE AMINOTRANSFERASE 126 U/L (12-78); ALBUMIN 2.6 G/DL (3.4-5.0); ALBUMIN/GLOBULIN RATIO 0.4 (1.0-2.7); ALKALINE PHOSPHATASE 572 U/L (46-116); ASPARTATE AMINO TRANSFERASE 40 U/L (15-37); BILIRUBIN,TOTAL 0.4 MG/DL (0.2-1.0); CKMB 10.5 NG/ML (0.0-3.6); CREATINE KINASE 507 U/L (26-308)
--- NOTE | 2019-08-15 16:37 | NUR ---
ED Nurse Note: REPORTED TO RADHA CARVALHO THE GLUCOSE [id number]
[2019-08-15 16:43] LABS: APPEARANCE,URINE CLEAR; BILIRUBIN, URINE NEGATIVE (NEGATIVE); COLOR,URINE PALE YELLOW; GLUCOSE, URINE (UA) 4+ (NEGATIVE); KETONES,URINE NEGATIVE (NEGATIVE); LEUKOCYTE ESTERASE ,URINE NEGATIVE (NEGATIVE); NITRITE,URINE NEGATIVE (NEGATIVE); PH,URINE 6 (4.5-8.0); PROTEIN,URINE 2+ (NEGATIVE); UROBILINOGEN,URINE NORMAL MG/DL (0.0-1.0)
[2019-08-15] MEDS ORDERED: Insulin Human Regular 100units/ml 3ml ONE (16:44)
[2019-08-15] MEDS ORDERED: Vancomycin 1gm vial IVPB ONE (16:44)
[2019-08-15] MEDS ORDERED: Insulin Human Regular 100units/ml 3ml IV ONE (16:45)
[2019-08-15 17:10] VITALS: BP 129/87
--- NOTE | 2019-08-15 17:42 | NUR ---
ED Nurse Note: COLLECTED REPEAT LACTIC ACID SPECIMEN THEN SENT.
--- NOTE | 2019-08-15 18:15 | Diagnostic Imaging Report ---
INDICATION: Abdominal pain TECHNIQUE: Continuous helical transaxial imaging of the abdomen and pelvis was obtained from the lung bases to the pubic symphysis during intravenous contrast administration. Coronal 2-D reformats were also obtained. Study obtained in a Siemens sensation [address] Automatic Exposure Control was utilized. Total Dose length Product (DLP): 419.[address] Dose Index Volume (CTDIvol): 7.5 mGy COMPARISON: None FINDINGS: Lungs: There is a minimal patch of atelectasis at the left lung base. Mild bronchiectasis noted at the lung bases bilaterally.. Liver: The liver is hypodense consistent with fatty infiltration. Gallbladder/biliary system: Gallbladder is poorly visualized but the is likely present and somewhat contracted. No obvious biliary ductal dilatation is seen but the CBD is not well visualized on this examination. This is in part due to artifacts and calcific pancreatitis. Spleen: Unremarkable Pancreas: The pancreas is abnormal with the heterogeneity, generalized atrophy and multiple calcifications consistent with chronic calcific pancreatitis. Consequently the CBD is difficult to see. The main pancreatic duct is somewhat prominent. There is also artifact in the epigastric region limiting evaluation. Kidneys: Punctate calcification noted in the medial part of the right kidney questionable for either vascular calcium or nonobstructive stone. There is excreted contrast within the renal calyces at the time of the scan. There is minimal hydronephrosis likely on the basis of a dilated bladder. Adrenal glands: The right adrenal gland is prominent and there is suggestion of a underlying low-density mass, probably representing an adenoma. This is not evaluated well. Aorta/IVC: Moderate calcification of aorta demonstrated. Bowel: Moderate fecal retention noted within a somewhat distended colon. Bowel gas pattern appears nonobstructive. The appendix is not seen. Bladder: The bladder is moderately distended. There is also thickening of the wall. There is suggestion of a bladder diverticulum projecting laterally on the right side measuring about 2.5 cm. Peritoneum: There is a relative possibility of intra-abdominal fat. There is moderate generalized cachexia noted. There is no obvious free fluid identified.. Bones: Osseous structures appear diffusely demineralized. There is narrowing of the L5-S1 disc with a minimal retrolisthesis and vacuum phenomena. Hypertrophy of the lower lumbar facets noted. IMPRESSION: Distended urinary bladder with thickened wall. Suspected cystitis. 2.5 cm diverticulum suspected on the right Minimal pelvocaliectasis bilaterally may be related to the dilated bladder. Chronic calcific pancreatitis with atrophy of the pancreas, heterogeneity and extensive calcification. Contracted gallbladder poorly visualized on this study. Basilar bronchiectasis. Left basal atelectasis. Fatty liver. Tiny stone versus vascular calcium medial right kidney. Prominent low-density mass within the right adrenal gland. Suspect adenoma. Moderate atherosclerotic vascular disease. The CT scanner at [facility] is accredited by the [employer] and the scans are performed using dose optimization techniques as appropriate to a performed exam including Automatic Exposure control.
--- NOTE | 2019-08-15 18:18 | NUR ---
ED Nurse Note: REPORT GIVEN TO ARNOLD WONG OF [facility]. ROOM #122-D
--- NOTE | 2019-08-15 19:21 | NUR ---
HAND-OFF: Report given to DOYLE FERGUSON RN.
--- NOTE | 2019-08-15 19:22 | NUR ---
ED Nurse Note: received report from Nuria WONG. pt vss, nad. will continue to monitor patient
[2019-08-15] MEDS: Sodium Chloride 550 ML IV SCH ×2 (19:27→19:30)
--- NOTE | 2019-08-15 19:41 | NUR ---
ED Nurse Note: patient requested food. pt bs 204. provided patient with sandwich per ermd. will continue to monitor patient.
[2019-08-15 19:53] VITALS: BP 144/65
[2019-08-15 21:29] VITALS: BP 125/50
--- NOTE | 2019-08-15 21:29 | NUR ---
ED Nurse Note: gave report to [facility] from [facility] [id number] by bedside.
[2019-08-15 21:30] VITALS: BP 125/50
--- NOTE | 2019-08-15 21:30 | NUR ---
TRANSFER TO FLOOR: Patient transferred to 122-D at [facility], via gurney with [facility] unit 192 in stable condition as ordered, per Clint. Report given to Juliocesar WONG at [facility]. Belongings sent with patient.
--- NOTE | 2019-08-16 08:37 | Diagnostic Imaging Report ---
Indication: Dyspnea Comparison: 07/09/2019 A single view chest radiograph was obtained. Findings: No definite infiltrate or pulmonary vascular congestion identified. The heart is normal in size. The aorta is mildly enlarged consistent with atherosclerotic vascular disease. The bones are osteopenic. Impression: No acute disease. No change
--- NOTE | 2019-08-17 13:52 | NUR ---
call recived from [facility] regarding patients wheel chair instructed the charge nurse that we will bring the wheel chair today in the evening
== END 2019-08-15 21:30 | disposition short-term general hospital (02) ==
LOC: EMR 16:06
DX: E11.622 Type 2 diabetes mellitus with other skin ulcer (principal); L89.159 Pressure ulcer of sacral region, unspecified stage; L08.9 Local infection of the skin and subcutaneous tissue, unspecified; K52.9 Noninfective gastroenteritis and colitis, unspecified; I10 Essential (primary) hypertension; B20 Human immunodeficiency virus [HIV] disease; Z79.899 Other long term (current) drug therapy; R53.1 Weakness
CPT/HCPCS: 36415; 71045; 74177; 80053; 81003; 82009; 82550; 82553; 82962; 83605; 83690; 83735; 83880; 84100; 84484; 85007; 85025; 85610; 85651; 85730; 86140; 87040; 87086; 93005; 96361; 96365; 96368; 96375; J1815; J2543; J3370; J7030; J7040; Q9967; Z7502; 99291; J8499

== ENCOUNTER 2019-11-29 19:12 | Emergency (ER) | payer OTHER ==
[~2019-11-29] VITALS: Ht 157.5 cm; Wt 45.4 kg
[2019-11-29 19:12] VITALS: BP 138/66
--- NOTE | 2019-11-29 19:42 | Emergency Room Report ---
History of Present Illness General Chief Complaint: Diarrhea Source: Patient Present Illness HPI Disclaimer: Please note that this report is being documented using DRAGON technology. This can lead to erroneous entry secondary to incorrect interpretation by the dictating instrument. HPI: 54-year-old male history of diabetes and HIV on retroviral therapy presents for evaluation of diarrhea. Patient is homeless and states he was discharged yesterday from [facility] for treatment of the cellulitis on his left TMA site. Patient states he has had loose stools for the past 1.5 months. Denies any significant foul-smelling mass or major volume losses recently. He states he was evaluated with stool cultures, occult blood, check for parasites and a broad work-up for his diarrhea. He was discharged with Imodium but has not yet started taking them though he does have the pills physically on him. He is asking for help to get to a skilled nursing and for new clothes as he has stained his. Otherwise denies significant abdominal pain, lightheadedness, syncope, chest pain or fevers. Tested COVID-19 positive during his last hospitalization at [facility] but denies any respiratory symptoms at this time. PMH: HIV, diabetes, COVID-19 PSH: Left TMA, right BKA Allergies: No medication allergies noted Social Hx: Reviewed Allergies: Uncoded Allergies: POLLEN (Allergy, Unknown, 07/23/16) COVID-19 Screening Contact w/high risk pt: No Recent Travel to affected area: No Experienced COVID-19 symptoms?: Yes COVID-19 symptoms experienced: Cough COVID-19 Testing performed SCRAP STRIPPER HAND: Yes COVID-19 Screening: Positive COVID-19 COVID-19 Testing Source: nasal Nursing Documentation-PMH Past Medical History: No History, Except For Hx Hypertension: Yes Hx Pacemaker: No Hx Asthma: No Hx COPD: No Hx Diabetes: Yes Hx Cancer: No Hx Gastrointestinal Problems: No Hx Dialysis: No Hx Neurological Problems: No Hx Cerebrovascular Accident: No Hx Seizures: No Review of Systems All Other Systems: negative except mentioned in HPI Physical Exam Vital Signs Date Time Temp Pulse Resp B/P (MAP) Pulse Ox O2 Delivery O2 Flow Rate FiO2 11/29/19 19:01 98.8 89 18 138/66 (90) 97 General: Awake and alert, no acute distress, wheelchair-bound HEENT: NC/AT. EOMI. Resp: Normal work of breathing. Abdomen: Abdomen is soft, nondistended. Nontender MSK: Right BKA, left TMA. No wound dehiscence or bleeding Neuro: Awake and alert. Mentating appropriately. Medical Decision Making Homeless Attestation Patient has been medically screened and is stable for outpatient follow up Diagnostic Impression: Primary Impression: Diarrhea ER Course 54-year-old homeless male with a history of type 2 diabetes, HIV on retroviral therapy presents for evaluation of 1.5 months diarrhea and requesting help with housing. Patient is no acute distress at this time. He has a prescription for loperamide which he has not yet started taking from his previous hospitalization. Provided patient with wash basin and had him. Here then provided with new clothes. Provided him with homeless resources to help get him to a skilled nursing. Do not believe he requires emergent labs or imaging at this time especially since he just had a full hospitalization and work-up for his diarrhea. Encouraged him to start taking his loperamide. Instructed him to return if there are any sudden changes in his health. Last Vital Signs Date Time Temp Pulse Resp B/P (MAP) Pulse Ox O2 Delivery O2 Flow Rate FiO2 11/29/19 19:12 98.8 81 18 138/66 97 Disposition: HOME, SELF-CARE Condition: Stable Yfn Moser MD November 29, 2019 19:41
[2019-11-29 19:55] VITALS: BP 130/70
== END 2019-11-29 19:55 | disposition home or self-care (01) ==
LOC: EDBD 19:12 → EMR 19:15
DX: R19.7 Diarrhea, unspecified (principal); U07.1 COVID-19; B20 Human immunodeficiency virus [HIV] disease; I10 Essential (primary) hypertension; E11.9 Type 2 diabetes mellitus without complications; Z79.899 Other long term (current) drug therapy; Z59.0 Homelessness; Z91.09 Other allergy status, other than to drugs and biological substances; Z89.511 Acquired absence of right leg below knee; Z89.432 Acquired absence of left foot
CPT/HCPCS: 99282